=== PATIENT | male | born 1960 | race Caucasian/White ===

== ENCOUNTER 2024-04-02 18:47 | Inpatient (IN) | payer BC, SELFPAY ==
[2024-04-02] VITALS (25 sets, daily range): BP systolic 75–150; BP diastolic 60–92; PULSE 90–106; BMI 24.1
--- NOTE | 2024-04-02 11:54 | ED.GENMED ---
History of Present Illness
General
Chief Complaint: Weakness
Source: patient and spouse
Exam Limitations: none
Time Seen by Provider: 04/02/24 11:28
Travel History
Have you had any contact with someone who has COVID-19?: No
Do you have any symptoms of coronavirus? Fever > 100 degrees, chills, cough, shortness of breath, sore throat, loss of taste or smell, muscle aches, or headache?: No
History of Present Illness
History of Present Illness:
64-year-old male general fatigue weakness frequent falls dizziness lightheadedness progressive over weeks. Also significant weight loss over the last year. Per the has some pain with eating although patient denies this. Complaining of
constipation
Past History
Past History
ED Past Medical History: Hypercholesterolemia, Psychiatric and Other (Sarcoidosis)
ED Past Surgical History: Orthopedic
Social History
Tobacco: Former smoker
Alcohol: Occasional
Personal:
Living: with family
Review of Systems
Review of Systems
All Other Systems: Not applicable
Constitutional: Reports weight loss; Denies fever
Respiratory: Reports no symptoms
Cardiac: Reports no symptoms
ABD/GI: Reports constipated; Denies abdominal pain, bloody stools or black stools
Phy Exam
Physical Exam
Physical Exam:
GENERAL: Alert and oriented in no apparent distress
EYE: Orbits normal.
NECK: Supple, no thyroid palpable
ENT: Pharynx without erythema
CARDIAC: Mildly tachycardic and regular no murmur.
LUNGS: Clear breath sounds,normal
ABDOMEN: Soft, without focal tenderness or distention. Stool brown but test positive
NEUROLOGICAL: Alert and oriented , grossly non-focal. Speech normal. Gait normal. No unsteady gait
SKIN: Warm and dry, no rash or lesion, no discoloration, skin intact.
MUSCULOSKELETAL: No edema,no deformity.Good color
PSYCH: Slightly flat affect.
Course
Orders/Labs/Results
Orders:
Orders
04/02/24 10:26
Electrocardiogram (*1) Urgent
Reason for Study: Chest Pain
04/02/24 11:44
IV Insert/Care/Rem.- Treatment PRN
04/02/24 11:45
CT Head W/o Iv Contrast Urgent
Comment:
Reason For Exam: Frequent falls/weakness
04/02/24 11:49
Complete Blood Count/With Diff Urgent
Comprehensive Metabolic Panel Urgent
Magnesium Urgent
TSH Reflex To Free T4 Urgent
Troponin I Urgent
04/02/24 12:45
* Blood Bank Products Urgent
Blood Bank Products: *Packed RBC Leuko(PRBC's)
Quantity: 2
Transfuse Today: Yes
Reason: Bleeding
04/02/24 12:47
Pantoprazole [Protonix IV] 80 mg IV NOW STA
04/02/24 12:49
Type+Screen Urgent
04/02/24 Dinner
NPO
Allow oral meds: Yes
Allow clear liquids: No
04/02/24 17:49
Bladder Scan As Directed
Follow Bladder Retention/Intermittent Cath Algorithm?: Yes
PRN if no void in __ hours: 6
Frequency: Per Retention Algorithm
If Bladder Scan Result >: 400
then:: Straight cath
Abdominal Series [CR Obstruct Series W/pa Chest] Urgent
Comment:
Reason For Exam: h/o constipation
Renal & Bladder US [US Renal With Bladder] Urgent
Comment:
Reason For Exam: urinary retention
04/02/24 17:54
Admit/Transfer Patient As Directed
Co-Sign Provider:
Level of Care: Inpatient admission
Assign to:: IMU- Intermediate Care
Physician / Group: Dr. Munir Malave.
Transfer to: IMU- Intermediate Care
Diagnosis: Acute on Chronic blood loss
Patient Condition: Fair
Reason for Hospitalization: Acute on Chronic blood loss
Expected length of stay greater than two midnights?: Yes
ELOS- Estimated Length of Stay in days: 3
I certify the patient meets the requirements for IP care: Yes
04/02/24 18:10
Code Status As Directed
Resuscitation Status: Full Code
04/02/24 18:29
Orthostatic Vital Signs As Directed
Orthostatic VS Frequency: Now
Comment: then every four hours for twenty-four hours
04/02/24 18:30
GASTROINTESTINAL CONSULT Routine
Consulting Provider: Kenyatta Torres
Was physician already notified: Yes
Blood Culture Q30M
MARITZA Source: Blood/Venous
Specimen Description:
04/02/24 19:45
Blood Culture Urgent
MARITZA Source: Blood/Venous
Specimen Description:
04/02/24 19:55
Blood Culture Q30M
MARITZA Source: Blood/Venous
Specimen Description:
04/02/24 20:03
0.9% Sodium Chloride 1000 ml [Nss] 1,000 ml IV 125 mls/hr
Bisacodyl [Dulcolax] 10 mg RECTAL [id number] PRN
Docusate W/Senna [Senokot-S] 1 tablet PO BIDPRN PRN
Polyethylene Glycol Powder [Miralax] 17 grams PO DAILYPRN PRN
04/02/24 20:03
Intake/ Output As Directed
Frequency: Per unit guidelines
Notify MD As Directed
Notify physician if: hemodynamically unstable
Pneumatic Compression Sleeves As Directed
Type: Knee high
Vital Signs As Directed
Frequency: Per unit guidelines
Weight As Directed
Frequency: Daily
DX Deep Vein Thrombosis Video Routine
04/02/24 22:00
Olanzapine [Zyprexa] 15 mg PO HS
Zolpidem Tartrate [Ambien] 10 mg PO HS
04/02/24 22:07
Urinalysis Reflex To Culture Urgent
Date Specimen was Collected: 04/02/24
Time Specimen was Collected: 21:58
04/03/24 05:07
Basic Metabolic Panel IN AM
Complete Blood Count/No Diff IN AM
Magnesium IN AM
04/03/24 08:00
Pantoprazole [Protonix IV] 40 mg IV DAILY
04/04/24 06:00
Basic Metabolic Panel IN AM
Complete Blood Count/No Diff IN AM
04/05/24 06:00
Basic Metabolic Panel IN AM
Complete Blood Count/No Diff IN AM
Abnormal Lab Results
04/02/24 04/02/24
11:49 12:49
WBC 14.8 H 10^3/uL
(4.8-10.8)
RBC 3.08 L 10^6/uL
(4.70-6.10)
Hgb 5.7 L* g/dL
(13.0-18.0)
Hct 20.1 L* %
(39.0-52.0)
MCV 65.3 L fL
(80.0-94.0)
MCH 18.5 L pg
(27.0-31.0)
MCHC 28.4 L g/dL
(33.0-37.0)
RDW 16.1 H %
(11.5-14.5)
Plt Count 776 H 10^3/uL
(130-400)
Abs Immat Gran (auto) 0.1 H 10^3/uL
(0-0.05)
Absolute Neuts (auto) 12.5 H 10^3/uL
(1.4-6.5)
Absolute Lymphs (auto) 0.9 L 10^3/uL
(1.2-3.4)
Absolute Monos (auto) 1.2 H 10^3/uL
(0.1-0.6)
Neutrophils % 84.6 H %
(42.2-75.2)
Lymphocytes % 6.3 L %
(20.5-51.1)
Chloride 93 L mmol/L
(98-107)
Carbon Dioxide 36 H mmol/L
(22-30)
BUN 38 H mg/dl
(9-20)
Creatinine 2.4 H mg/dL
(0.7-1.3)
Glucose 129 H mg/dl
(70-99)
Calcium 10.5 H mg/dl
(8.4-10.2)
Magnesium 3.2 H mg/dl
(1.6-2.3)
AST 16 L U/L
(17-59)
Crossmatch IS Only See Detail
04/02/24 11:49
04/02/24 11:49
Vital Signs
Initial and Last Documented VS:
Initial Vital Signs
Temp Pulse Resp BP Pulse Ox
97.8 F 115 20 97/68 98
04/02/24 10:22 04/02/24 10:22 04/02/24 10:22 04/02/24 10:22 04/02/24 10:22
Last Documented Vital Signs
Temp Pulse Resp BP Pulse Ox
98.4 F 99 18 128/55 90
04/03/24 11:14 04/03/24 12:00 04/03/24 12:00 04/03/24 12:00 04/03/24 10:00
*Radiology
Radiology exam reviewed: radiology read reviewed (No acute abnormalities)
*Pulse Oximetry
Patient hypoxic: no
*EKG
Interpretation: abnormal
Comparison EKG: no comparison EKG present
Heart Rate: 114
Rate: tachycardiac
Rhythm: sinus
Mobile: normal axis
Interval: normal interval
QRS Pattern: normal QRS
Ischemia: no ischemia
*Critical Care Note
Total Time (30-74mins, 75-104mins- exclusive of procedures): 15
Update Note
Update Note:
Stool test positive. Brown. Protonix ordered. Blood consent signed.
ED Attending Note
-
Portions of this chart may have been created with voice recognition software.� Occasional wrong word or��sound alike� substitutions may have occurred due to the inherent limitations of voice recognition software.
Discharge Plan
Departure
Patient Disposition: Admit
Date of Disposition: 04/02/24
Time of Disposition: 12:48
Presentation/result/management discussed w/ accepting MD/DO: Hospitalist
Discharge Problem:
Occult upper GI bleed, Severe anemia, Acute renal insufficiency
Interventions
Interventions:
*Risk Screen - Suicide Last Done: 04/02/24 10:22
*General Assessment Last Done: 04/02/24 10:22
*Neglect/Abuse Screening Last Done: 04/02/24 10:22
ED- Fall Risk Assessment Last Done: 04/02/24 20:20
*ED COVID-19 Vaccine History Last Done: 04/02/24 20:20
*Nursing Disposition Last Done: 04/02/24 20:20
ED- Cardiac Assessment Last Done: 04/02/24 15:35
ED- Neurological Assessment Last Done: 04/02/24 15:36
ED- Pulmonary Assessment Last Done: 04/02/24 15:36
Discharge Date and Time
Discharge Date/Time: 04/02/24 20:21
[2024-04-02 12:10] LABS: % Basophils 0.2 % (0-2); % Eosinophils 0.1 % (0-6); % Immature Granulocytes 0.5 % (0-0.5); % Lymphocytes 6.3 % (20.5-51.1); % Monocytes 8.3 % (1.7-9.3); % Neutrophils 84.6 % (42.2-75.2); Absolute Immature Granulocytes 0.1 10^3/uL (0-0.05); Absolute Lymphocytes 0.9 10^3/uL (1.2-3.4); Absolute Monocytes 1.2 10^3/uL (0.1-0.6); Absolute Neutrophils 12.5 10^3/uL (1.4-6.5); Mean Corp Hgb Conc. 28.4 g/dL (33.0-37.0); Mean Corpuscular Hgb 18.5 pg (27.0-31.0); Mean Corpuscular Volume 65.3 fL (80.0-94.0); Mean Platelet Volume 8.3 fL (7.4-10.4); Nucleated Red Blood Cells % 0 % (-); Platelet Count 776 10^3/uL (130-400); Red Blood Cell Count 3.08 10^6/uL (4.70-6.10); Red Cell Dist. Width 16.1 % (11.5-14.5); White Blood Cell Count 14.8 10^3/uL (4.8-10.8)
[2024-04-02 12:14] LABS: Hematocrit 20.1 % (39.0-52.0); Hemoglobin 5.7 g/dL (13.0-18.0)
[2024-04-02 12:18] LABS: ALT (SGPT) 11 U/L (0-50); AST (SGOT) 16 U/L (17-59); Albumin 3.6 g/dl (3.5-5.0); Alkaline Phosphatase 89 U/L (38-126); Blood Urea Nitrogen 38 mg/dl (9-20); Calcium 10.5 mg/dl (8.4-10.2); Carbon Dioxide 36 mmol/L (22-30); Chloride 93 mmol/L (98-107); Glucose 129 mg/dl (70-99); Magnesium 3.2 mg/dl (1.6-2.3); Potassium 3.9 mmol/L (3.5-5.1); Sodium 136 mmol/L (135-145); Total Bilirubin 0.3 mg/dl (0.2-1.3); Total Protein 6.4 g/dl (6.3-8.2); eGFR 29.39
[2024-04-02 12:31] LABS: Troponin I < 0.012 ng/ml
[2024-04-02 12:48] LABS: TSH Reflex To Free T4 1.58 uIU/ml (0.47-4.68)
[2024-04-02] MEDS: PROTONIX IV 80 MG IV (13:26)
--- NOTE | 2024-04-02 18:34 | HPS.HSE ---
Addendum entered and electronically signed by Munir Malave MD 04/02/24 21:18:
Attending Addendum-
I performed a history and physical exam of the patient and discussed his management with the resident. I reviewed the resident's note and agree with the documented findings and plan of care. Patient presents with one weeks worth of fatigue and
intermittent dizziness on standing. States has been taking naproxen frequently especially for CP. Patient describes the CP as substernal worse when laying down better with burping. States stools were a 'different color' one week ago. Denies
hematochezia or melena. Has been constipated x 1 week. Has not urinated since last PM. Full 12 point ROS reviewed and negative except as documented Exam- vitals reviewed in chart GEN-NAD pale appearing heart regular tachycardic lungs dry crackles
throughout abd distended pos BS NT no rebound or guarding distended bladder Plan:
# Acute Anemia/GI Bleed-
- orthostatic and tachycardiac
- c/s GI
- likely upper GI NSAID/ulcer related
- NPO s/p bolus 80mg PPI cont IV PPI BID
- transfuse 2 units prbc and repeat h and h 2 hours post
- will need EGD and possibly colonoscopy
- G-B score 13
- check iron studies
# Severe Constipation
- check obs series
- start IVF
- enema stat x 1
- NPO
# CANELO
- post renal
- renal US with distended bladder no hydro
- place thakur to decompress
- repeat BMP in am
- cont IVF
# Leukocytosis
- check lactate
- blood cx and urine cx
- cont to monitor
- repeat CBC in am
# Hypomagnesemia
- hold MOM
- repeat Mg in am
# Insomnia
- chronic Ambien use
- continue
# Peripheral Neuropathy
- hold gabapentin
# Bipolar
- cont zyprexa
# Sarcoidosis
- f/u as OP
- stable
DVT proph- SCDs
Code- Full
Time spent coordinating care, review of plan of care with resident, review of records, med rec, consults, notes, labs, rads, d/w nursing - 80 mins
Original Note:
Family Physician
-
Family Physician: Brayan Gordon
Chief Complaint
-
dizziness and generalised weakness
History of Present Illness
64 yo ,male presented to the ER reporting dizziness, lightheadedness, and frequent falls since 5 to 6 months, worsened over the past couple of weeks. Patient also mentioned about recent weight loss in the last year. He has a history of
constipation, his last bowel movement was 10 days ago [dark stools] after using milk of magnesia. He has a history of burping, dyspepsia, epigastric and abdominal pain after eating, nonradiating and he uses Tums/naproxen as needed. He has a past
medical history of sarcoidosis and bipolar disorder. No history of nausea, vomiting, hematemesis, hematuria, fevers, recent travel, diarrhea. Patient mentioned he did not pass urine since yesterday night, no suprapubic discomfort/pain. FOBT is
positive in the ER. No history of colonoscopy.
Medical History
Past Medical History
Past Medical History: Reports Other (Sarcoidosis, bipolar disorder)
Additional Past Medical History:
Sarcoidosis, bipolar disorder
Past Surgical History: Reports Other (Orthopedic)
Additional Past Surgical History:
Orthopedic
Social History
Tobacco: Former Smoker (Quit 40 years ago)
Alcohol: Occasional (heavy beer drinker until 6 months ago)
Drug: None
Personal:
Living: With Family
Family History
Family History: CAD (Brother)
Allergies / Home Medications
Allergies reflects when Allergies were last updated in [facility].
Home Medications with original date entered in [facility]
Allergy/Medication List:
Allergies
Allergy/AdvReac Type Severity Reaction Status Date / Time
No Known Allergies Allergy Verified 04/02/24 10:26
Home Medications
calcium carbonate (Tums) 200 mg PO QIDPRN PRN gerd 04/02/24
gabapentin 300 mg capsule 300 mg PO HS 04/02/24
magnesium hydroxide 400 mg/5 mL oral suspension (Milk of Magnesia) 2,400 mg PO DAILYPRN PRN constipation/gerd 04/02/24
naproxen sodium 220 mg tablet (Aleve) 220 mg PO BIDPRN PRN mild pain 04/02/24
olanzapine 15 mg tablet 15 mg PO HS 04/02/24
zolpidem 10 mg tablet (Ambien) 10 mg PO HS 04/02/24
Review of Systems
-
History Source: Patient
Constitutional: Reports Weight Loss and Other (As per HPI)
Physical Exam
Vital Signs
Vital Signs
Temp Pulse Resp BP Pulse Ox
98.1 F 96 16 131/77 98
04/02/24 16:48 04/02/24 16:48 04/02/24 16:48 04/02/24 16:48 04/02/24 16:32
Physical Exam
HEENT: NormoCephalic and Other (Conjunctival pallor)
Respiratory: Wheezes (Mild bilateral wheezing)
Cardiac: S1/S2 and Other (Tachycardic)
GI: Non Tender and Distended; No Soft
Genito-urinary: Other (No suprapubic tenderness)
Musculoskeletal: No Edema and Normal Gait & Station
Skin: Warm and Dry
Neuro: Awake, Alert, Oriented, Cranial Nerves Intact and No Sensory Deficits
Psych: Calm
Laboratory Results
-
04/02/24 11:49
04/02/24 11:49
Laboratory Results
Total Bilirubin 0.3 mg/dl (0.2-1.3) 04/02/24 11:49
AST 16 U/L (17-59) L 04/02/24 11:49
ALT 11 U/L (0-50) 04/02/24 11:49
Alkaline Phosphatase 89 U/L (38-126) 04/02/24 11:49
Troponin I < 0.012 ng/ml 04/02/24 11:49
Impression/Plan
-
IMPRESSION:
GI blood loss
CANELO
Leukocytosis
Orthostatic hypotension
Hypermagnesemia
Constipation
PLAN:
#GI blood loss
acute versus chronic, etiology possibly secondary to peptic ulcer disease versus malignancy versus chronic NSAID use.
h/o wt loss
Hemoglobin 5.7, hematocrit 20.1 on admission
Transfused 2 PRBC , H&H 2 hours after second transfusion.
Monitor vital signs, orthostatic vitals
IV fluids
N.p.o.
GI consult-possibly EGD, colonoscopy after GI evaluation
Protonix IV 40 mg twice daily
Discontinue naproxen
#CANELO
Possibly prerenal
IV fluids
No urine output since yesterday night
Bladder scan with straight cath per protocol
Renal ultrasonogram
Urinalysis
Trend I&O's
Discontinue naproxen
#Leukocytosis
WBC at 14.8
Tachycardia
Urinalysis with reflex to culture
Blood culture
Chest x-ray
#Orthostatic hypotension
BP: 104/72 ---> 75/60 upon standing for 3 min.
IV fluid bolus normal saline
#Hypermagnesemia
3.2
Chronic use of milk of magnesia for constipation
Discontinue milk of magnesia
Trend magnesium
#Constipation
Abdominal series
[2024-04-02 19:55] LABS: Hematocrit 22.7 % (39.0-52.0)
[2024-04-02 20:00] LABS: Hemoglobin 7.4 g/dL (13.0-18.0)
[2024-04-02] MEDS: ZYPREXA 15 MG PO (20:37)
[2024-04-02] MEDS: NSS 1000 IV (20:37)
[2024-04-02] MEDS: AMBIEN 10 MG PO (20:37)
[2024-04-02] MEDS: FLEET MINERAL OIL ENEMA 133 ML RECTAL (21:43)
[2024-04-02 22:20] LABS: Urine Albumin Trace (Neg - Trace); Urine Bilirubin 1+ (Negative); Urine Character Clear (Clear); Urine Color Yellow; Urine Glucose Negative (Negative); Urine Ketone Negative (Negative); Urine Leukocyte Negative (Negative); Urine Nitrite Negative (Negative); Urine Occult Blood Negative (Negative); Urine Specific Gravity 1.015 (<1.030); Urine Urobilinogen Negative (Neg - 1+); Urine pH 6.5 (5.0-9.0)
--- NOTE | 2024-04-02 22:29 | PTCARENOTE ---
pt admitted from the ED- pt is AAOx3- able to make needs known. NSR/ST on the monitor. ST more with ambulation to 120s but back down to 80s with rest. 95% RA, chronic SOB. belly round, very hypoactive bowel sounds. pt with positive orthostatic
vitals but denies any dizziness. pt was bladder scanned in the ED for >400ml. pt stood at side of bed to try to urinate without success. thakur ordered and placed without issues. 600ml of initial output, yellow urine. urine specimen collected and
sent down. pt also ordered a mineral oil enema, pt sat on BSC and was able to have small hard black BM. no complaints of pain. IV fluids hung and infusing into R AC. knee high SCD's on. pt oriented to room, call acuna within reach, care ongoing.
[2024-04-03] VITALS (21 sets, daily range): BP systolic 90–158; BP diastolic 55–92; PULSE 96–114; BMI 24.1
[2024-04-03] MEDS: NSS 1000 IV ×2 (04:01→16:11)
[2024-04-03 05:22] LABS: Hematocrit 22.2 % (39.0-52.0); Mean Corp Hgb Conc. 31.5 g/dL (33.0-37.0); Mean Corpuscular Hgb 21.1 pg (27.0-31.0); Mean Corpuscular Volume 66.9 fL (80.0-94.0); Mean Platelet Volume 8.1 fL (7.4-10.4); Platelet Count 681 10^3/uL (130-400); Red Blood Cell Count 3.32 10^6/uL (4.70-6.10); White Blood Cell Count 12.7 10^3/uL (4.8-10.8)
[2024-04-03 05:45] LABS: Blood Urea Nitrogen 41 mg/dl (9-20); Calcium 9.4 mg/dl (8.4-10.2); Carbon Dioxide 30 mmol/L (22-30); Chloride 98 mmol/L (98-107); Estimated Creatinine Clearance 37 ml/min; Glucose 106 mg/dl (70-99); Magnesium 3.4 mg/dl (1.6-2.3); Potassium 3.7 mmol/L (3.5-5.1); Sodium 135 mmol/L (135-145); eGFR 41.51
--- NOTE | 2024-04-03 06:09 | PTCARENOTE ---
pt oxygen dropping while sleeping to 80s- 2L NC placed while asleep, now 100%.
--- NOTE | 2024-04-03 06:10 | W.PN.HOSP.TC ---
Addendum entered and electronically signed by Munir Malave MD 04/03/24 20:53:
Attending Addendum-I saw and evaluated the patient. I reviewed the resident�s note and agree with findings and plan as documented in the resident�s note. Patient had small BM afer enema last PM. Feels 'full' Patient has poor understanding on
severity of condition. Passing gas. Denied abd pain. Full 12 point ROS reviewed and negative except as documented Exam- vitals reviewed in chart GEN-NAD pale appearing heart regular tachycardic lungs dry crackles throughout abd distended decreased
BS in all 4 quads NT no rebound or guarding distended bladder, palpable Plan:
# Acute on Chronic Blood Loss Anemia/GI Bleed-
- still orthostatic and tachycardiac
- GI input appreciated
- check CT A/P for eval
- likely combination of upper GI NSAID/ulcer related and Lower- obstructive ? mass
- per patient unsure if has had a colonoscopy
- cont NPO s/p bolus 80mg PPI cont IV PPI BID
- transfused 2 units prbc
- check iron studies on non txed blood
# Sinus tachycardia
- increase IVF rate bolus as able
- likely from dehydration/hypovolemia
# Severe Constipation with likely LBO
- reviewed obs series- Distended small bowel loops with multiple air-fluid levels is most consistent with at least partial or intermittent small bowel obstruction.
Correlation with the renal ultrasound performed concurrently reveals the patient is unable to void, with a prevoid volume of 4232 mL.
- cont IVF
- NPO
- may need NG tube
- c/s colorectal surg for eval
# CANELO
- resolving
- post renal
- renal US reviewed-with distended bladder no hydro
- cont Neville for decompress
- repeat BMP in am
- cont IVF
# Leukocytosis
- resolving
- check lactate
- blood cx and urine cx
- cont to monitor
- repeat CBC in am
# Hypermagnesemia
- likely from MOM use and renal failure
- repeat Mg in am
# Insomnia
- chronic Ambien use
- continue
# Peripheral Neuropathy
- hold gabapentin
# Bipolar
- cont zyprexa
# Sarcoidosis
- f/u as OP
- stable
DVT proph- SCDs
Code- Full
Time spent coordinating care, review of plan of care with resident, review of records, med rec, consults, notes, labs, rads, d/w nursing and radiology- 60 mins
Original Note:
Today's Communication/Plan
-
.
Assessment / Plan
Assessment / Plan
#GI blood loss/ anemia/chronic constipation
acute versus chronic, etiology possibly secondary to peptic ulcer disease versus malignancy versus chronic NSAID use.
h/o wt loss
Hemoglobin 5.7, hematocrit 20.1 on admission
GB score�13
Transfused 2 PRBC , H&H 2 hours after second transfusion.
Monitor vital signs, orthostatic vitals
Protonix IV 40 mg twice daily
Discontinue naproxen
IV fluids
N.p.o.
Patient had bowel movement, after enema
GI consulted
CT scan with oral contrast- There is colonic obstruction at the level of the superior aspect of the descending colon. In this region, there is a mass with associated colonic wall thickening, and this very likely represents an obstructing colonic
carcinoma. This mass extends to the tail of the pancreas and the adjacent left kidney, and findings suggest invasion of these structures. As a differential consideration, the mass could originate from the pancreatic tail or the left kidney, but this
is felt to be less likely.
Significant distention of the colon with air and fluid extending to the level of obstruction. There is also significant distention of small bowel loops with air, fluid, and contrast, with administered oral contrast extending to the mid small bowel.
No evidence of free intraperitoneal air. No evidence for pneumatosis.
There is a small to moderate amount of free fluid within the abdomen and pelvis.
2 mm calcification the central lower pole of the left kidney, likely a nephrolith.
Colorectal surgery consulted
NG tube decompression, post NGT abd X-ray for position
GI evaluation- Dr. Enamorado- possibly colonoscopy with stent placement/biopsy under general anesthesia tomorrow.
#CANELO/urinary retention
Possibly postrenal
IV fluids
[place] in place
Renal ultrasonogram-Extremely distended urinary bladder, 4232 ml. Patient unable to void. Only the left ureteral jet was visualized.
Kidneys of normal size. No hydronephrosis. Simple cyst in the left kidney.
Urinalysis
Trend I&O's
Discontinue naproxen
Start tamsulosin
#Leukocytosis
Lactate 1.1
Blood culture and urine culture pending
Repeat CBC a.m.
#Hypermagnesemia
3.4
Trend
#History of bipolar disorder
Continue olanzapine
#Continue Ambien for insomnia
#DVT prophylaxis SCDs
Anticipated Discharge: > 48 hours
Subjective/Interval History
-
Date of Service: April 03, 2024
Patient had one small bowel movement, dark stools yesterday night after enema. No nausea, vomiting, abdominal pain.
Objective Data
-
Labs:
Laboratory Results
04/02/24 04/03/24
19:45 05:07
WBC 12.7 H
Hgb 7.4 L D 7.0 L
Hct 22.7 L 22.2 L
Plt Count 681 H
Sodium 135
Potassium 3.7
Chloride 98
Carbon Dioxide 30
BUN 41 H
Creatinine 1.8 H
Glucose 106 H
Calcium 9.4
Vital Signs:
Vital Signs
Temp Pulse Resp BP Pulse Ox
98.0 F 95 19 137/77 98
04/03/24 03:20 04/03/24 06:00 04/03/24 06:00 04/03/24 06:00 04/03/24 06:00
I&O
04/01/24 04/02/24 04/03/24
06:59 06:59 06:59
Intake Total 500 / 500
Output Total 600 / 600
Balance -100 / -100
Review of Systems
-
All other systems: Reviewed and negative (As per HPI)
Physical Exam
-
General: No Apparent Distress
HEENT: Normocephalic and Atraumatic
Respiratory: Clear to Auscultation
Cardiac: S1/S2
GI: Nontender, Distended and Other (BS +, tympanitic)
Skin: Warm and Dry
Neuro: Awake, Alert, Oriented and AO x 3
--- NOTE | 2024-04-03 07:46 | PTCARENOTE ---
Rec'd pt this AM. no stool. BS only present in one quadrant. positive orthostatic vs but asymptomatic. denies abdominal pain. Updated [facility] MD Dr. Wan.
[2024-04-03] MEDS: NSS (PRESERVATIVE FREE) 10 ML IV ×2 (07:55→20:03)
[2024-04-03] MEDS: PROTONIX IV 40 MG IV ×2 (07:56→20:03)
--- NOTE | 2024-04-03 09:29 | CON.GI ---
Addendum entered and electronically signed by Venus Verduzco MD 04/03/24 12:14:
I saw and examined the patient.
The LABORATORY SECRETARY or PA's note was reviewed and I agree with the note.
Comment: 64-year-old male with history of sarcoidosis, hypertension, high cholesterol presenting with weakness, lethargy, fall and a 50 pound weight loss in the last 1 year. Patient is not a great historian, at bedside as well. In the
emergency room on presentation, hemoglobin of 5.7 with microcytic indices, thrombocytosis. Received 2 units of packed red blood cell Hospital transfusion. No previous labs to compare to. He does report intermittent abdominal discomfort but not
very clear on the details. Denies any nausea, vomiting. Intermittent heartburn, takes antacid couple of times a week and milk of magnesia once a week, no trouble swallowing. Also reports constipation in the more than a month, ast has been having
bowel movements once a week only if he takes milk of magnesia, would be some formed stool with loose stool, he also sees some black stool. No bright blood. Prior to that he reports having regular bowel movements daily. No regular NSAID use.
Unintentional weight loss of 50 pounds in 1 year. Previous history of alcohol abuse, reports that he has not been drinking in the last 6 months. Never had upper endoscopy or colonoscopy. No known history of anemia or GI bleeding. No family
history of colon cancers or polyps that he is aware of. Prior to admission, no urination for 24 hours.
He had obstruction series that showed distended small bowel loops with multiple air-fluid level consistent with at least partial or intermittent small bowel obstruction.
-Significant microcytic anemia with GI bleeding, hemodynamically stable.
Iron studies not accurate given done on transfuse blood. Will check celiac panel.
Rule out ulcer disease, AVMs, small bowel lesion versus colonic neoplasia/polyps.
Ideally patient would need upper endoscopy/colonoscopy but given distended small bowel loops with air-fluid level, will start with CT scan of the abdomen and pelvis with oral contrast only, no IV contrast given elevated creatinine.
Will follow-up on the above testing and plan for upper endoscopy and colonoscopy after.
Continue Protonix 40 mg IV twice daily.
Will follow closely.
Original Note:
Consultation
-
Date/Time Consultation Requested: 04/02/24- 1829
Date/Time Consultation Performed: 04/03/24929
Requesting Provider: Angeline Wan MD
Performing Provider: JOHANN Sánchez, Venus Verduzco MD
Reason for Consultation: anemia
Medical History
Chief Complaint / HPI
Chief Complaint: weakness
History of Present Illness:
Pt is a 64yo with hx HTN, hypercholesterolemia, sarcoidosis, insomnia with onset of fatigue, falls, dizziness and lightheadedness over a few weeks. Per patient he also admits to recent intentional wt loss of 50 lbs over last 6 months. On
admission hbg 5.7 with MCV 65.3, WBC 14.8, Platelets 681, creat 2.4, 10.5, mag 3.2. Imaging with chronic microvascular ischemic change on head CT and obstruction series with chronic lung changes no free air but distended SB loops with concern for
partial or intermittent Small bowel obstruction. Renal US with concern for severe urinary bladder distention with placement of thakur for 600ml output. Pt also with some complaints of constipation with enema given on admission for only small stool.
At this time patient admits to constipation and dark stools after milk of magnesia use. He has occasional GERD with OTC antiacid use He denies dysphagia, odynophagia, nausea, vomiting, diarrhea, or blood in stools. No prior EGD or
colonoscopy.
Past Medical History
Past Medical History: HTN, Hypercholesterolemia and Other (sarcoidosis)
Past Surgical History: Orthopedic (ankle surgery in 20's)
Social History
Tobacco: Former Smoker (quit 40 years ago)
Alcohol: Former (quit 6 months ago with hx 4-5 beers daily)
Drug: None
Personal:
Living: With Family
Employment: Retired
Family History
Family History: Other (no family hx colon CA or polyps)
Allergies / Home Medications
Allergy/AdvReac Type Severity Reaction Status Date / Time
No Known Allergies Allergy Verified 04/02/24 10:26
�Medication �Instructions �Recorded
calcium carbonate (Tums) 200 mg PO QIDPRN PRN gerd 04/02/24
gabapentin 300 mg capsule 300 mg PO HS 04/02/24
magnesium hydroxide 400 mg/5 mL 2,400 mg PO DAILYPRN PRN 04/02/24
oral suspension (Milk of Magnesia) constipation/gerd
naproxen sodium 220 mg tablet 220 mg PO BIDPRN PRN mild pain 04/02/24
(Aleve)
olanzapine 15 mg tablet 15 mg PO HS Mental Health/Anxiety 04/02/24
zolpidem 10 mg tablet (Ambien) 10 mg PO HS Sleep 04/02/24
Review of Systems
-
Unable to obtain full review of systems at this time due to: Other (forgetfulness)
History Source: Patient
Constitutional: Reports Weight Loss, Fatigue and Other (falls)
EENT: Reports No Symptoms
Respiratory: Reports No Symptoms
Abdomen/GI: Reports Constipated and Black Stools
: Reports Difficulty Voiding (with thakur placement in ER)
Musculoskeletal: Reports No Symptoms
Skin: Reports No Symptoms
Neurological: Reports Weakness
Endocrine: Reports No Symptoms
Hematologic/Lymphatic: Reports No Symptoms
Vital Signs
Temp Pulse Resp BP Pulse Ox
98.2 F 95 19 137/77 98
04/03/24 07:49 04/03/24 06:00 04/03/24 06:00 04/03/24 06:00 04/03/24 08:02
Physical Exam
Exam
General: Other (thin appearing )
HEENT: Normocephalic and Anicteric
Respiratory: Clear
Cardiac: Other (tachy)
GI: Soft, Non Tender and Distended
Musculoskeletal: No Clubbing and No Cyanosis
Skin: Warm and Dry
Neuro: Awake, Alert and AO x 3
Psych: Calm
Results
WBC 12.7 10^3/uL (4.8-10.8) H 04/03/24 05:07
Hgb 7.0 g/dL (13.0-18.0) L 04/03/24 05:07
Hct 22.2 % (39.0-52.0) L 04/03/24 05:07
MCV 66.9 fL (80.0-94.0) L 04/03/24 05:07
Plt Count 681 10^3/uL (130-400) H 04/03/24 05:07
Absolute Neuts (auto) 12.5 10^3/uL (1.4-6.5) H 04/02/24 11:49
Sodium 135 mmol/L (135-145) 04/03/24 05:07
Potassium 3.7 mmol/L (3.5-5.1) 04/03/24 05:07
Chloride 98 mmol/L (98-107) 04/03/24 05:07
Carbon Dioxide 30 mmol/L (22-30) 04/03/24 05:07
BUN 41 mg/dl (9-20) H 04/03/24 05:07
Creatinine 1.8 mg/dL (0.7-1.3) H 04/03/24 05:07
Calcium 9.4 mg/dl (8.4-10.2) 04/03/24 05:07
Total Bilirubin 0.3 mg/dl (0.2-1.3) 04/02/24 11:49
AST 16 U/L (17-59) L 04/02/24 11:49
ALT 11 U/L (0-50) 04/02/24 11:49
Alkaline Phosphatase 89 U/L (38-126) 04/02/24 11:49
Diagnostic Image Results:
04/02/24 Renal US
Extremely distended urinary bladder. Patient unable to void. Only the left ureteral jet was visualized.
Kidneys of normal size. No hydronephrosis. Simple cyst in the left kidney.
04/02/24 obstruction series
Chronic lung changes, consistent with the history of sarcoidosis. Poor inspiratory effort with low lung volumes. No definite superimposed acute airspace process.
No free air.
Distended small bowel loops with multiple air-fluid levels is most consistent with at least partial or intermittent small bowel obstruction.
Correlation with the renal ultrasound performed concurrently reveals the patient is unable to void, with a prevoid volume of 4232 mL.
04/02/24 HCT
No acute intracranial abnormality.
Mild to moderate chronic appearing microvascular ischemic disease
Prior GI Procedures:
EGD: none
Colonoscopy: none
Assessment / Plan
-
Pt is a 64yo with hx HTN, hypercholesterolemia, sarcoidosis, insomnia with onset of fatigue, falls, dizziness and lightheadedness over a few weeks. Per patient he also admits to recent intentional wt loss of 50 lbs over last 6 months. On
admission hbg 5.7 with MCV 65.3, WBC 14.8, Platelets 681, creat 2.4, 10.5, mag 3.2. Imaging with obstruction series with chronic lung changes no free air but distended SB loops with concern for partial or intermittent Small bowel obstruction.
Renal US with concern for severe urinary bladder distention with placement of thakur for 600ml output. Pt also with some complaints of constipation with enema given on admission for only small stool.
-severe microcytic anemia
-reports of intermittent black stools
-obstruction series with concern for partial or intermittent SBO
-constipation
-recent weight loss- intentional per patient
-bladder distention with placement of thakur catheter
-CANELO
-recent falls/weakness on admission
-thrombocytosis
-leukocytosis
other medical problems:
-HTN
-hypercholesterolemia
-sarcoidosis
-insomnia
PLAN:
etiology of anemia with black stools and concern for partial/intermittent SBO related to underlying obstructive process with SB/colon mass, stricture vs concern for UGI bleed with reports of black stool vs other
will review with Dr. Verduzco for CT -- today with oral contrast only vs in am with IV and oral if creat allow
t/c eventual EGD/colon for work up for anemia if obstructive process stable to allow prep
cont thakur for now with good urine output and creat improving
s/p transfusion hbg 7 today cont to trend hbg
cont PPI BID
iron studies done today not accurate as done post transfusion will try to repeat iron studies on blood done in ER prior to transfusion if able
currently NPO with concern for Small bowel process but denies vomiting
will follow
-
-
Thank you for consultation and allowing me to participate in the patient's care. Please call the mobile application development lead GI physician during the after hours with any questions or concerns.
[2024-04-03 09:30] LABS: Iron 157 ug/dl (49-181)
[2024-04-03 09:39] LABS: Percent Saturation 49 % (20-50); Total Iron Binding Capacity 316 ug/dl (261-462)
[2024-04-03 10:20] LABS: Lactic Acid 1.1 mmol/L (0.7-2.0)
[2024-04-03 10:47] LABS: Ferritin 10.8 ng/ml (17.9-464.0)
[2024-04-03] MEDS: OMNIPAQUE 50 ML PO (11:23)
--- NOTE | 2024-04-03 12:31 | PTCARENOTE ---
Pt tolerated Oral contrast in prep for Abdominal CT scan.
[2024-04-03] MEDS: FLOMAX 0.400000000000000022 MG PO (16:12)
--- NOTE | 2024-04-03 18:04 | PTCARENOTE ---
RN and Resident MD attempted to insert [place] sump NGT x2. Pt unable to tolerate procedure. refusing to allow additional attempts. Colorectal surgery currently at bedside to discuss possible surgical interventions and to review CT scan results with
pt and family.
--- NOTE | 2024-04-03 18:09 | CM ---
Patient with Hx bipolar disorder with Dx Acute Anemia/GI Bleed. O2 2L. NPO/IVF.
Met with patient and his brother Douglas;
patient resides with his in a 2 story house with 1 K[address].
The patient has been independent in ADLs and ambulation.
He states he is retired.
The patient has no DME, prior VN or SNF.
PCP - Brayan Gordon
Pharmacy - [facility]
No CM d/c needs identified.
Plan home.
[2024-04-03] MEDS: HURRICAINE SPRAY 1 APPLIC TOPICAL (18:52)
--- NOTE | 2024-04-03 19:32 | CON.CRS ---
Consultation
-
Performing Provider: Heber Bermudez MD
Reason for Consultation: Large bowel obstruction, possible colon cancer
Medical History
-
History of Present Illness:
Patient is a 64-year-old male with PMH of bipolar (previously on lithium for many years, stopped due to kidney injury which recovered), insomnia, sarcoidosis, HLD, GERD who presents with a couple weeks of weakness, dizziness and falls at home.
About 6 months ago, he stopped drinking beer and attempt to lose weight. He is lost over 50 pounds since then. For the last month or so, he started having worsening constipation, going on average about once every week and using magnesium citrate
to help. He also started getting bloating, but not sure when this started, maybe within the last 1 to 2 weeks. He denies any N/V. His last BM was this morning and it was small amount associated with small amount of gas, but none since then.
Denies any recent hematochezia. He also was not able to urinate and a Thakur was placed during his admission. He denies any abdominal pain, CP/SOB. He admits to being a little foggy with all of the information he is getting. He has never had a
colonoscopy.
In the ED, he was noted to have a hemoglobin of 5.7 with a WBC of 14.8 and Cr of 2.4. He was given 2 pRBCs. Initially, an x-ray was done showing possible bowel obstruction with air-fluid levels. A CT was then done showing a colonic obstruction at
the descending colon with a mass concerning for cancer. This mass appears to be invading the left kidney and tail of the pancreas. There is significant distention with the proximal colon and small bowel, cecum measuring between 9 to 10 cm.
Past Medical History
Past Medical History: Other (As above)
Past Surgical History: Other (Left ankle surgery in 20)
Social History
Tobacco: Former Smoker (Quit 40 years ago)
Alcohol: Former (Quit 6 months ago)
Drug: None
Personal:
Living: With Family
Employment: Retired
Family History
Family History: Other (Mother-breast cancer)
Allergies / Home Medications
Allergy/AdvReac Type Severity Reaction Status Date / Time
No Known Allergies Allergy Verified 04/02/24 10:26
�Medication �Instructions �Recorded �Confirmed �Type
calcium carbonate (Tums) 200 mg PO QIDPRN PRN gerd 04/02/24 04/02/24 History
gabapentin 300 mg capsule 300 mg PO HS 04/02/24 04/02/24 History
magnesium hydroxide 400 mg/5 mL 2,400 mg PO DAILYPRN PRN 04/02/24 04/02/24 History
oral suspension (Milk of Magnesia) constipation/gerd
naproxen sodium 220 mg tablet 220 mg PO BIDPRN PRN mild pain 04/02/24 04/02/24 History
(Aleve)
olanzapine 15 mg tablet 15 mg PO HS Mental Health/Anxiety 04/02/24 04/02/24 History
zolpidem 10 mg tablet (Ambien) 10 mg PO HS Sleep 04/02/24 04/02/24 History
Review of Systems
-
All other systems: Negative unless noted
A 10 point review of systems was completed, and was negative except as per HPI.
Physical Exam
Vital Signs
Temp 98.4 F 04/03/24 11:14
Pulse 107 04/03/24 18:00
Resp Rate 24 04/03/24 18:00
Blood pressure 142/89 04/03/24 18:00
SaO2 90 04/03/24 10:00
04/02/24 04/03/24 04/04/24
06:59 06:59 06:59
Actual Weight 67.6 kg
Body Mass Index (BMI) 24.1
Lab Results / Allergies
04/03/24 05:07
04/03/24 05:07
WBC 12.7 10^3/uL (4.8-10.8) H 04/03/24 05:07
Hgb 7.0 g/dL (13.0-18.0) L 04/03/24 05:07
Hct 22.2 % (39.0-52.0) L 04/03/24 05:07
Plt Count 681 10^3/uL (130-400) H 04/03/24 05:07
Abs Immat Gran (auto) 0.1 10^3/uL (0-0.05) H 04/02/24 11:49
Neutrophils % 84.6 % (42.2-75.2) H 04/02/24 11:49
Allergy/AdvReac Type Severity Reaction Status Date / Time
No Known Allergies Allergy Verified 04/02/24 10:26
Physical Exam
General: Well Developed and No Apparent Distress
HEENT: Normocephalic and Atraumatic
Respiratory: Non Labored Respirations
GI: Soft, Non Tender (No rebound or guarding) and Distended (Moderately to severely distended)
Skin: Warm and Dry
Neuro: Awake, Alert, AO x 3 and Other (Having trouble with short-term recall)
Data Reviewed
-
CT Scan: Image Personally Visualized and interpreted, Discussed with Physician, Discussed with Patient and Discussed with Family
Labs: Labs Reviewed by me, Discussed with Patient and Discussed with Family
Assessment / Plan
-
64-year-old male with PMH of bipolar (previously on lithium for many years, stopped due to kidney injury), insomnia, sarcoidosis, HLD, GERD who presents with a couple weeks of weakness, dizziness and falls at home for a couple of weeks associated
with intentional 50 pound weight loss as well as worsening constipation over a few weeks and bloating for 1-2 weeks, no n/v, urinary retention requiring thakur place; has never had a colonoscopy; noted to have a Hb 5.7 s/p pRBC x2 (repeat 7.4>7.0),
with a WBC of 14.8 and Cr of 2.4 (repeat 1.8). KUB showing possible bowel obstruction with air-fluid levels, CT showing a colonic obstruction at the descending colon with a mass concerning for cancer and appears to be invading the left kidney and
tail of the pancreas, significant distention with the proximal colon and small bowel, cecum measuring between 9 to 10 cm
�History and clinical findings consistent with near complete LBO due to descending colon mass with possible invasion into the left kidney and tail of pancreas; this raises the concern for an invasive colon cancer; explained the pathophysiology and
treatment options for obstructing colon mass to the patient, patient's and patient's son; options include attempt at colonic stent versus exlap with creation of diverting ostomy; resecting the colon mass initially does not appear possible with
the CT findings concerning for invasion into the kidney and tail of the pancreas, this would make this a T4b cancer which may be better treated with neoadjuvant chemotherapy; explained the risks of stent placement including but not limited to
inability to place the stent; in this situation, a surgery with ostomy creation would become necessary; explained the risks benefits and alternatives of surgery and the patient and patient's understood, all questions were answered; in
preparation for possible surgery after attempt at colonic stent, consent was signed by patient and placed in the chart
�Recommend strict n.p.o.; attempted NGT placement x 4 (twice by me and NGT coiled in the mouth), patient refusing further attempts at this point
-if patient amenable, would attempt placement of NGT in AM
� IVF
� Pain control, avoid narcotics
� Appreciate GI, discussed with Dr. Enamorado and plans for colonic stent placement first thing in the morning
-currently, patient's abdomen is nontender and no signs of hemodynamic instability; will need close monitoring overnight for signs of clinical worsening
�Hold AC and DVT PPx; trend Hb; will give another pRBC tonight in preparation for possible surgery
�Continue Thakur, strict I's/O
� Appreciate hospitalist
[2024-04-03] MEDS: NSS IV (20:11)
--- NOTE | 2024-04-03 21:14 | PTCARENOTE ---
verbal order received from Dr. Verduzco to give x1 tap water enema, enema given with no effect, no stool. 1 unit of PRBC's ordered and hung. thakur intact draining yellow urine. pt reports feeling bloated, belly distended, non-tender, firm and round.
NG was unable to be placed during the day after x4 attempts. pt burping but no flatus. pt has been ST 100-110s on the monitor. able to stand at bedside x1 assist. SOB exertion, oxygen down to 80s a times, 2L NC placed on patient. now 93%. care
ongoing.
[2024-04-03] MEDS: ZYPREXA 15 MG PO (21:42)
[2024-04-03] MEDS: AMBIEN 10 MG PO (21:42)
[2024-04-04] VITALS (15 sets, daily range): BP systolic 94–157; BP diastolic 65–114; BMI 24.5
--- NOTE | 2024-04-04 01:17 | PTCARENOTE ---
pt found standing at bedside, SOB on exertion, some wheezes on exertion. pt on BSC, able to have large formed, hard BM's. heme positive. pt was found to be manually disimpacting himself, advised patient to stop. pt placed back to bed, stated his
abdomen feels a little better. bed alarm now on d/t patient getting OOB without calling. care ongoing.
--- NOTE | 2024-04-04 02:29 | PTCARENOTE ---
pt trying to climb OOB again, setting bed alarm off. pt woke up from a dream confused. reoriented easily. pt with audible wheezes. notified respiratory to give a breathing treatment. pt placed back to bed. notified covering RETIREMENT ADMINISTRATOR- IV fluids off for
the time being. care ongoing.
[2024-04-04] MEDS: XOPENEX 1.25 MG INHALANT SOLUTION INH ×2 (02:30→07:31)
[2024-04-04] MEDS: NSS IV (04:23)
[2024-04-04 04:42] LABS: Hematocrit 25.1 % (39.0-52.0); Hemoglobin 8.1 g/dL (13.0-18.0); Mean Corp Hgb Conc. 32.3 g/dL (33.0-37.0); Mean Corpuscular Hgb 22.2 pg (27.0-31.0); Mean Corpuscular Volume 68.8 fL (80.0-94.0); Mean Platelet Volume 8.4 fL (7.4-10.4); Platelet Count 661 10^3/uL (130-400); Red Blood Cell Count 3.65 10^6/uL (4.70-6.10); Red Cell Dist. Width 21.6 % (11.5-14.5); White Blood Cell Count 11.7 10^3/uL (4.8-10.8)
[2024-04-04 04:44] LABS: INR 1.17; PT 14.7 Sec (11.4-14.6)
[2024-04-04 05:21] LABS: Blood Urea Nitrogen 44 mg/dl (9-20); Calcium 9.3 mg/dl (8.4-10.2); Carbon Dioxide 22 mmol/L (22-30); Chloride 98 mmol/L (98-107); Estimated Creatinine Clearance 40 ml/min; Glucose 105 mg/dl (70-99); Magnesium 3.3 mg/dl (1.6-2.3); Potassium 3.6 mmol/L (3.5-5.1); Sodium 135 mmol/L (135-145); eGFR 44.46
[2024-04-04 05:32] LABS: NT-proBNP 234 pg/ml
--- NOTE | 2024-04-04 07:04 | PTCARENOTE ---
pt with vomiting this AM- brown liquid, fouling smelling. pt stated the nausea just came on suddenly. pt cleaned up. notified night SHEET METAL SMITH and resident this AM, IV zofran ordered and given. report to dayshift RN.
[2024-04-04] MEDS: ZOFRAN 4 MG IV (07:07)
--- NOTE | 2024-04-04 08:35 | PTCARENOTE ---
At start of shift patient was climbing out of bed, vomiting, pulse ox 88% on room air, tachycardia in the 130s, tachypnea in the 30s. Midflow at 10 liters applied, NGT tube placed in left nare by GI doctor. Patient improved quickly. Patient is
denying pain when asked right now, NGT output 1400.
[2024-04-04 08:58] LABS: B.E. 0.5 mmol/L; HCO3 24.6 mmol/L (21-28); O2 Saturation % 95.3 % (94-98); PCO2 37 mmHg (35-48); PO2 64 mmHg (83-108); pH 7.43 (7.35-7.45)
--- NOTE | 2024-04-04 09:00 | W.PN.HOSP.TC ---
Addendum entered and electronically signed by Munir Malave MD 04/04/24 21:55:
Attending Addendum-I saw and evaluated the patient. I reviewed the resident�s note and agree with findings and plan as documented in the resident�s note. Called by nursing this am re aspiration event and distress noted afterwards. NG able to be
placed bedside by GI. Patient with significant symptomatic improvement after NGT draining brown foul smelling fluid. States NG tube is uncomfortable. Had large black colored BM last PM. Full 12 point ROS reviewed and negative except as documented
Exam- vitals reviewed in chart GEN-mild distress with NG tube in place draining brown fluid, heart regular tachycardic lungs scattered crackles throughout abd less distended decreased BS in all 4 quads NT no rebound or guarding -- thakur in place
draining concentrated yellow urine Plan:
# Large Colonic Mass/Acute on Chronic Blood Loss Anemia/GI Bleed-
- still orthostatic and tachycardiac
- GI input appreciated
- CR surg consult- input appreciated
- CT A/P 04/03-reviewed with rads- colonic obstruction at the level of the superior aspect of the descending colon. mass with associated colonic wall thickening, mass extends to the tail of the pancreas and the adjacent left kidney, and findings
suggest invasion of these structures.
Significant distention of the colon with air and fluid extending to the level of obstruction. There is also significant distention of small bowel loops with air, fluid, and contrast, with administered oral contrast extending to the mid small bowel.
- Exploratory laparotomy, takedown of splenic flexure, loop transverse colostomy, partial omentectomy, TAP block on 04/04
- cont NPO IVF
- IV PPI BID
- transfused 3 units prbc thus far
- trend CBC daily
# Sinus tachycardia
- cont IVF
- likely from dehydration/hypovolemia
# Acute Hypoxemic Respiratory Failure
- likely due to aspiration
- wean o2 as tolerated
# CANELO
- mildly improved 1.7
- post renal from colonic obstruction and dilation
- renal US reviewed-with distended bladder no hydro
- cont Thakur
- repeat BMP in am
- cont IVF
# Leukocytosis
- resolving
- blood cx NGTD
- cont to monitor
- repeat CBC in am
# Hypermagnesemia
- likely from MOM use and renal failure
- repeat Mg in am
# Insomnia
- chronic Ambien use
- continue
# Peripheral Neuropathy
- hold gabapentin
# Bipolar
- cont zyprexa
# Sarcoidosis
- f/u as OP
- stable
DVT proph- SCDs
Code- Full
Time spent coordinating care, review of plan of care with resident, review of records, med rec, consults, notes, labs, rads, d/w nursing radiology GI - 65 mins
Original Note:
Today's Communication/Plan
-
Exploratory laparotomy
N.p.o.
IV fluids
NGT decompression with low continuous suction
Monitor hemodynamic status/vitals closely
Assessment / Plan
Assessment / Plan
#Acute hypoxic respiratory failure
-On 10 L oxygen, saturating at 93%, tachypneic, bilateral wheezes/crackles
-Possibly secondary to hypoventilation due to insufficient lung expansion from compression due to distended abdomen
-Vitals stabilized after NGT decompression
-Continue NG tube decompression with low continuous suction
-Monitor vitals
-Check lactate, ABG
-ABG-hypoxemia PaO2 64
-Empiric Unasyn to prevent aspiration pneumonia
# Acute on chronic anemia secondary to GI blood loss/chronic constipation
-GB score�13
-Transfused 3 PRBC , hemoglobin 8.1 today
-GI and Colorectal consulted
-CT scan with oral contrast- There is colonic obstruction at the level of the superior aspect of the descending colon. In this region, there is a mass with associated colonic wall thickening, and this very likely represents an obstructing colonic
carcinoma. This mass extends to the tail of the pancreas and the adjacent left kidney, and findings suggest invasion of these structures. As a differential consideration, the mass could originate from the pancreatic tail or the left kidney, but this
is felt to be less likely.
Significant distention of the colon with air and fluid extending to the level of obstruction. There is also significant distention of small bowel loops with air, fluid, and contrast, with administered oral contrast extending to the mid small bowel.
No evidence of free intraperitoneal air. No evidence for pneumatosis.
There is a small to moderate amount of free fluid within the abdomen and pelvis.
2 mm calcification the central lower pole of the left kidney, likely a nephrolith.
-NG tube decompression, post NGT abd X-ray for position
-GI/colorectal had discussed with the patient about the possible options of further management
-Patient consented for exploratory laparotomy with colectomy/colostomy
-strict n.p.o. with NGT to low continuous suction
-Continue IVF resuscitation
-Continue Thakur, strict I/O's
-Continue Protonix
#CANELO/urinary retention
Possibly postrenal
IV fluids
Thakur in place
Renal ultrasonogram-Extremely distended urinary bladder, 4232 ml. Patient unable to void. Only the left ureteral jet was visualized.
Kidneys of normal size. No hydronephrosis. Simple cyst in the left kidney.
Urinalysis
Trend I&O's
#Leukocytosis
Lactate 1.1
Blood culture no growth in 24 hours
Repeat CBC a.m.
#Hypermagnesemia
3.4
Trend
#History of bipolar disorder
Continue olanzapine
#Continue Ambien for insomnia
#DVT prophylaxis SCDs
Anticipated Discharge: > 48 hours
Subjective/Interval History
-
Date of Service: April 04, 2024
4 attempts were made for NG tube placement yesterday night. 1 PRBC transfusion. Patient had shortness of breath, was wheezing and tachypneic and appeared confused as per the nursing. He required 6 L oxygen, Xopenex nebulization given. He had 1
large bowel movement with heme positive stools.
In the a.m. today patient had an episode of vomiting [dark], 1 dose of IV Zofran administered. Patient was tachypneic, tachycardic, bilateral wheezing/crackles. He was on 10 L oxygen.
Colorectal surgery/GI consulted
NGT placement with low continuous suction�1500 mL greenish-brown fluid
Thakur in place
Objective Data
-
Labs:
Laboratory Results
04/04/24 04/04/24
04:18 08:43
WBC 11.7 H
Hgb 8.1 L
Hct 25.1 L
Plt Count 661 H
PT 14.7 H
INR 1.17
HCO3 Pending
Sodium 135
Potassium 3.6
Chloride 98
Carbon Dioxide 22
BUN 44 H
Creatinine 1.7 H
Glucose 105 H
Calcium 9.3
Vital Signs:
Vital Signs
Temp Pulse Resp BP Pulse Ox
99.4 F 118 22 122/89 94
04/04/24 04:11 04/04/24 07:35 04/04/24 07:35 04/04/24 04:00 04/04/24 07:35
I&O
04/03/24 04/04/24 04/05/24
06:59 06:59 06:59
Intake Total 500 / 500 250 / 250
Output Total 600 / 600 800 / 800 1500 / 1500
Balance -100 / -100 -550 / -550 -1500 / -1500
Review of Systems
-
All other systems: Reviewed and negative (As per HPI)
Physical Exam
-
General: Appears in Distress
HEENT: Normocephalic and Atraumatic
Respiratory: Wheezes and Crackles
Cardiac: S1/S2 and Tachycardic
GI: Nontender, Distended and Other (Bowel sounds positive in 2 quadrants)
Skin: Warm and Dry
Neuro: Awake, Alert, Oriented and AO x 3
[2024-04-04 09:02] LABS: O2 Therapy pt on 10 L oxygen
[2024-04-04] MEDS: FLOMAX PO (09:06)
--- NOTE | 2024-04-04 09:06 | W.PN.GI.CBS2 ---
Addendum entered and electronically signed by Venus Verduzco MD 04/04/24 13:21:
I saw and examined the patient.
The ORDER ADMINISTRATOR or PA's note was reviewed and I agree with the note.
Comment: Discussed with patient and regarding CT results.
Patient's status post NG tube please-significant amounts of light brown material drained out
Continue NG decompression
Prophylactic antibiotics for possible aspiration risk
Patient for possible colonic stent placement versus OR for colostomy later today
Will follow
Original Note:
Today's Communication / Plan
-
Ct as noted with concern for mass with extension to pancreas and left kidney
+ vomiting overnight
NGT attempted 04/03 without success- placed this am by Dr. Verduzco drained over 2 canisters light brown material and still draining --continue decompression to LIS for now
Pt feeling improved
Dr. Enamorado and Dr. Bermudez following for further intervention possible later today -- attempted stent vs OR pending clinical status with O2 demand
cont NPO
hbg 8.1 cont to follow
updated with NGT placement and concern for aspiration
reviewed with GI team, surgery and medical team
Assessment / Plan
-
Pt is a 64yo with hx HTN, hypercholesterolemia, sarcoidosis, insomnia with onset of fatigue, falls, dizziness and lightheadedness over a few weeks. Per patient he also admits to recent intentional wt loss of 50 lbs over last 6 months. On
admission hbg 5.7 with MCV 65.3, WBC 14.8, Platelets 681, creat 2.4, 10.5, mag 3.2. Imaging with obstruction series with chronic lung changes no free air but distended SB loops with concern for partial or intermittent Small bowel obstruction.
Renal US with concern for severe urinary bladder distention with placement of thakur for 600ml output. Pt also with some complaints of constipation with enema given on admission for only small stool.
04/03/24 CT A/p oral only
There is colonic obstruction at the level of the superior aspect of the descending colon. 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 This mass extends to
the tail of the pancreas and the adjacent left kidney, and findings suggest invasion of these structures. As a differential consideration, the mass could originate from the pancreatic tail or the left kidney, but this is felt to be less likely.
Significant distention of the colon with air and fluid extending to the level of obstruction. There is also significant distention of small bowel loops with air, fluid, and contrast, with administered oral contrast extending to the mid small bowel.
No evidence of free intraperitoneal air. No evidence for pneumatosis.
There is a small to moderate amount of free fluid within the abdomen and pelvis.
2 mm calcification the central lower pole of the left kidney, likely a nephrolith.
Small bilateral pleural effusions.
-severe microcytic anemia(iron studies not accurate done post transfusion)
-reports of intermittent black stools
-colonic distention/constipation
-abnormal CT with concern for colonic obstruction descending colon with mass with extension to tail of pancreas and left kidney
-concern for increased O2 demand 04/04 ? aspiration with vomiting
-recent weight loss- intentional per patient
-bladder distention with placement of thakur catheter
-CANELO
-recent falls/weakness on admission
-thrombocytosis
-leukocytosis
other medical problems:
-HTN
-hypercholesterolemia
-sarcoidosis
-insomnia
PLAN:
Ct as noted with concern for mass with extension to pancreas and left kidney
+ vomiting overnight
NGT attempted 04/03 without success- placed this am by Dr. Verduzco drained over 2 canisters light brown material and still draining --continue decompression to LIS for now
Pt feeling improved
Dr. Enamorado and Dr. Bermudez following for further intervention possible later today -- attempted stent vs OR pending clinical status with O2 demand
cont NPO
hbg 8.1 cont to follow
updated with NGT placement and concern for aspiration
reviewed with GI team, surgery and medical team
Subjective
Subjective
Date of Service: April 04, 2024
concern for vomiting overnight and inability to place NGT, stool brown black hard, increased O2 demand to 10 liter overnight
Objective
Data Reviewed
Laboratory Data:
Laboratory Results
04/04/24 04:18
04/04/24 04:18
Laboratory Results
PT 14.7 Sec (11.4-14.6) H 04/04/24 04:18
INR 1.17 04/04/24 04:18
Magnesium 3.3 mg/dl (1.6-2.3) H 04/04/24 04:18
Total Bilirubin 0.3 mg/dl (0.2-1.3) 04/02/24 11:49
AST 16 U/L (17-59) L 04/02/24 11:49
ALT 11 U/L (0-50) 04/02/24 11:49
Alkaline Phosphatase 89 U/L (38-126) 04/02/24 11:49
Vital Signs and I&O:
Vital Signs
Temp Pulse Resp BP Pulse Ox
99.4 F 118 22 122/89 94
04/04/24 04:11 04/04/24 07:35 04/04/24 07:35 04/04/24 04:00 04/04/24 07:35
I&O
04/03/24 04/04/24 04/05/24
06:59 06:59 06:59
Intake Total 500 / 500 250 / 250
Output Total 600 / 600 800 / 800 1500 / 1500
Balance -100 / -100 -550 / -550 -1500 / -1500
Physical Exam
Physical Exam
HEENT: Anicteric and Moist mucous membranes
Cardiology: Other (tachy)
Pulmonary: Other (decreased )
GI: Soft, Distended and Tender (minimal)
Neuro: Non Focal
[2024-04-04] MEDS: NSS (PRESERVATIVE FREE) 10 ML IV ×2 (09:13→19:09)
[2024-04-04] MEDS: PROTONIX IV 40 MG IV ×2 (09:13→19:09)
[2024-04-04] MEDS: NSS 1000 IV ×2 (09:13→18:30)
[2024-04-04] MEDS: UNASYN IV ×3 (09:14→21:04)
--- NOTE | 2024-04-04 10:18 | W.PN.CRS1 ---
Today's Communication / Plan
-
ngt
cea
colonic stenting by GI - possible OR
Assessment/Plan
-
64 yo male presents with dizziness and falls with associated weight loss and constipation, found to have a colonic obstruction at the level of the superior aspect of the descending colon. In this region, there is a mass with associated colonic wall
thickening, and this very likely represents an obstructing colonic carcinoma. This mass extends to the tail of the pancreas and the adjacent left kidney, and findings suggest invasion of these structures. Has vomited during the night/this AM, NGT
attempt yesterday failed, now refusing NGT.
WBC: 11.7. Tachycardic 110's to 120's. BP stable.
Plan:
1. Given amount of vomiting, spoke to patient about need for NGT and he has agreed to try again.
2. For possible colonic stent today by GI. We will be on standby if he requires surgery.
3. CEA added.
4. Remain NPO with NGT. No meds down NGT.
5. Hold anticoagulation for ?surgery.
6. Will follow.
Subjective Data
Subjective Data
Date of Service: April 04, 2024
Patient has been vomiting multiple times since last night. He states his abdominal pain has improved since vomiting. He is a little confused.
Objective Data
-
Vital Signs
Temp Pulse Resp BP Pulse Ox
99.4 F 118 22 122/89 94
04/04/24 04:11 04/04/24 07:35 04/04/24 07:35 04/04/24 04:00 04/04/24 07:35
Intake & Output
04/03/24 04/04/24 04/05/24
06:59 06:59 06:59
Intake Total 500 / 500 250 / 250
Output Total 600 / 600 800 / 800 1500 / 1500
Balance -100 / -100 -550 / -550 -1500 / -1500
Intake:
Blood Product Amount Infused ( 500 / 500 250 / 250
mL)
Packed Rbc Leukoreduced Unit 250 / 250
[id number]
Packed Rbc Leukoreduced Unit 250 / 250
[id number]
Packed Rbc Leukoreduced Unit 250 / 250
[id number]
Output:
Gastrointestinal tube output ( 1500 / 1500
Total)
[place] Sump 1500 / 1500
Urine, Nev[place] 600 / 600 800 / 800
Lab Results
04/04/24 04:18
04/04/24 04:18
Physical Exam
-
General: No Acute Distress and AOx3
Abdomen: Soft, Distended and Non Tender
Skin: Warm and Dry
[2024-04-04 10:19] LABS: Lactic Acid 1.1 mmol/L (0.7-2.0)
--- NOTE | 2024-04-04 13:37 | PTCARENOTE ---
Report given to OR Nurse preop. Patient and educated about plan of care. NGT clamped for travel, approved by gi team.
--- NOTE | 2024-04-04 13:51 | WOUNDNOTE ---
[facility] RN Note: Stoma marked RUQ, RLQ and LUQ per Dr. Bermudez's request. Patient on his way to surgery shortly. Stoma marked in flat and in chair position in his [facility] air bed. Stoma marked over the rectus muscle avoiding any skin creases.
Patient instructed surgeon make the final decision with stoma placement. RUQ stoma jasmine 6.1cm to R of midline and 3.3cm above the umbilical line. RLQ stoma jasmine 1.6cm distal to umbilical line and 6cm to R of midline. LUQ 5.5cm to L of midline and
4.5cm above the umbilical line. Patient confirmed can be present and contacted for any ostomy teaching sessions.
[2024-04-04 14:39] LABS: B.E. - POC -1.1 mmol/L; Glucose - POC 93 mg/dl (65-99); HCO3 - POC 24 mmol/L (21-29); Hematocrit - POC 27 % PCV (42-52); Hemodilution- POC Yes; Ionized Calcium - POC 1.21 mmol/L (1.12-1.27); Lactate - POC 0.58 mmol/L (0.36-0.75); O2 Saturation %Calculated-POC 99.7 5 (92-96); PCO2 - POC 42 mmHg (35-45); PO2 - POC 194 mmHg (80-100); Potassium - POC 3.1 mmol/L (3.6-5.0); Sodium - POC 139 mmol/L (135-145); pH - POC 7.37 (7.35-7.45)
[2024-04-04 16:20] LABS: B.E. - POC -3.8 mmol/L; Glucose - POC 105 mg/dl (65-99); HCO3 - POC 22 mmol/L (21-29); Hematocrit - POC 30 % PCV (42-52); Hemodilution- POC Yes; Hemoglobin Calculated - POC 10.3; Ionized Calcium - POC 1.16 mmol/L (1.12-1.27); Lactate - POC 0.89 mmol/L (0.36-0.75); PCO2 - POC 44 mmHg (35-45); PO2 - POC 99 mmHg (80-100); Potassium - POC 3.7 mmol/L (3.6-5.0); Sodium - POC 138 mmol/L (135-145); pH - POC 7.31 (7.35-7.45)
--- NOTE | 2024-04-04 17:54 | PTCARENOTE ---
Patient for transfer to room 3372 post op. Family notified. Report discussed with Nicolás FREIRE in ICU. Belongings to be packed up by .
--- NOTE | 2024-04-04 18:14 | W.IMMPOSTOP ---
Surgical Immed Post Op Note
-
Primary Surgeon: Heber Bermudez MD
Assisting Surgeon: STEPHANE Wilhelm
Pre-op Diagnosis: Large bowel obstruction due to proximal descending colon mass
Post-op Diagnosis: Large bowel obstruction due to proximal descending colon mass
Procedure Performed: Exploratory laparotomy, takedown of splenic flexure, loop transverse colostomy, partial omentectomy, TAP block
Anesthesia Type: General
Specimen / Cultures: partial omentum
IVF: 4.0L
NGT: 1.7L
UOP: 300mL
Estimated Blood Loss: 20 mL
Complications: None
Operative Findings: Started with upper midline incision and large ketty; I encountered small amount of clear ascites; due to significant distention of small and large bowel, extended incision to 2 cm below the umbilicus and set up the bookwalter;
explored the abdomen and did not notice any concern for peritoneal spread; cecum significantly distended but completely healthy without signs of ischemia; ran the large bowel from the cecum to the proximal descending colon mass; was able to palpate
the mass which felt hard and immobile; difficult to assess but it did appear to be invasive into the kidney and most likely the tail of the pancreas as well; the transverse colon was not very mobile; patient had undergone preoperative stoma marking
and transverse colon did not easily reach markings; due to distended cecum and ascending colon, I elected to mobilize the transverse in order to reach to the left upper quadrant marking; I began by entering the lesser sac and dividing the
gastrocolic ligament from the mid transverse up to the splenic flexure; I divided the congenital attachments from the posterior stomach to the pancreas; I mobilized the splenic flexure to the point of the fixed proximal descending colon mass; reach
was improved but still not adequate; continued taking down the lesser sac attachments to the level of the proximal transverse colon; at that time, the transverse colon was freely mobile and easily reached the LUQ marking; I ran the bowel up until a
loop of distal ileum that was adherent in the lower right pelvis and difficult to visualize; the small bowel for the visualized length was healthy without signs of ischemia or adhesions; I milked the gas and fluid from the distal most point of the
mobile small bowel proximally to the duodenum and the NG tube suctioned an additional 1.2 L; confirmed NG tube placement in the stomach with palpation; a significant pedicle of omentum appeared devascularized so I performed a partial omentectomy
using the ligasure; I made a 3 cm circular incision at the LUQ marking and excised the karuk of skin; brought this down to the level of the fascia and made a cruciate incision in the anterior and posterior fascia; I placed a red rubber at the
proposed site of colostomy and pulled this through the LUQ trephine; the loop of transverse passed through easily and seated 3 cm above the skin; placed a 4cm ostomy roxann; I started closure by starting to run 0 PDS at each end of the incision; after
5 cm, I then performed an open tap block and placed Seprafilm around the colostomy and under the midline incision; I closed the fascia, irrigated the subcutaneous tissue, confirmed hemostasis and closed skin intermittently with intermittent Telfa
deanne; I then matured the loop colostomy with the functional limb oriented superiorly and brooked, and the defunctional limb oriented inferiorly and not brooked; based on the patient's respiratory status (episodes of vomiting the prior night with
concern for subtle aspiration), anesthesia elected to keep him intubated as a precaution
--- NOTE | 2024-04-04 18:43 | PTCARENOTE ---
1816-Received pt from OR via bed.Bedside report received from CL[facility] GENERAL [facility].
Pt is unresponsive to verbal and tactile stimuli.He was not reversed from anesthesia as per [facility].SR noted.IVF infusing.Right A Line intact and zeroed.# 8 ETT at 22 cm to vent.Decreased breath sounds throughout.POX 97%Bronson NGT via left nares
draining green brown fluid.Budded red ostomy intact without drainage noted.Neville draining yellow urine.Midline incision intact with Aquacel with no drainage noted.
[2024-04-04] MEDS: SUBLIMAZE 100 MCG IV (19:06)
[2024-04-04] MEDS: SUBLIMAZE 100 IV (19:07)
[2024-04-04] MEDS: DIPRIVAN 100 IV (19:09)
[2024-04-04 19:17] LABS: B.E. -3.3 mmol/L; HCO3 22.1 mmol/L (21-28); Hematocrit 26.2 % (39.0-52.0); Hemoglobin 8.6 g/dL (13.0-18.0); Mean Corp Hgb Conc. 32.8 g/dL (33.0-37.0); Mean Corpuscular Hgb 23.2 pg (27.0-31.0); Mean Corpuscular Volume 70.6 fL (80.0-94.0); Mean Platelet Volume 8.2 fL (7.4-10.4); O2 Saturation % 99.8 % (94-98); PCO2 40 mmHg (35-48); PO2 133 mmHg (83-108); Platelet Count 532 10^3/uL (130-400); Red Blood Cell Count 3.71 10^6/uL (4.70-6.10); Red Cell Dist. Width 23.4 % (11.5-14.5); White Blood Cell Count 7.5 10^3/uL (4.8-10.8); pH 7.35 (7.35-7.45)
[2024-04-04] MEDS: SUBLIMAZE 50 MCG IV ×3 (19:24→22:59)
[2024-04-04 19:27] LABS: INR 1.35; PT 16.7 Sec (11.4-14.6)
[2024-04-04 19:28] LABS: APTT 30.8 Sec (23.4-35.0)
[2024-04-04 19:31] LABS: Blood Urea Nitrogen 37 mg/dl (9-20); Calcium 7.1 mg/dl (8.4-10.2); Carbon Dioxide 20 mmol/L (22-30); Chloride 105 mmol/L (98-107); Estimated Creatinine Clearance 42 ml/min; Glucose 84 mg/dl (70-99); Magnesium 2.8 mg/dl (1.6-2.3); Phosphorus 3.4 mg/dl (2.5-4.5); Potassium 3.8 mmol/L (3.5-5.1); Sodium 136 mmol/L (135-145); Triglycerides 51 mg/dl (10-149); eGFR 47.82
--- NOTE | 2024-04-04 19:31 | OR.RPT ---
Operative Report
Operative Report
DATE OF OPERATION: 04/02/2024
SURGEON: Heber Bermudez MD
PREOPERATIVE DIAGNOSIS: Large bowel obstruction due to proximal descending colon mass
POSTOPERATIVE DIAGNOSIS: Large bowel obstruction due to proximal descending colon mass
OPERATION: Exploratory laparotomy, takedown of splenic flexure, loop transverse colostomy, partial omentectomy, TAP block
ASSISTANTS:
1. STEPHANE Wilhelm
ANESTHESIA: General
ESTIMATED BLOOD LOSS: 20 mL
UOP: 300 mL, 1.7 L output from NGT
IVF: 4.0 L
FINDINGS:
1. Diffusely dilated small bowel and significantly dilated cecum; no evidence of ischemia or serosal tearing on visible small bowel or cecum
2. Palpable, immobile proximal descending colon mass, most likely the known colon mass, with palpable invasion into the retroperitoneum
3. Mobilized the splenic flexure and created a loop distal-transverse colostomy in the LUQ
SPECIMENS:
1. Partial omentum
DRAINS: None
COMPLICATIONS: No immediate complications.
INDICATIONS: The patient is a 64-year-old male who presented with a couple of weeks of weakness and dizziness associated with worsening constipation, having one BM about once a week for the last 3 to 4 weeks. He then developed abdominal distention
over the last week and presented to the [place] ED. Denied abdominal pain. On CTAP, he was discovered to have a large bowel obstruction due to a proximal descending colon mass, with concern of invasion into the left kidney and tail of the
pancreas. Initially, the case was discussed with advanced GI for a colonic stent to be placed the following morning. An NG tube was attempted to be placed the first night, but failed and the patient refused further attempts despite the risks
discussed with him. Over the first night, the patient vomited and was more tachycardic. The GI team was able to place an NG tube with return of about 3 L of feculent material. After further discussion with advanced GI, I was concerned about the
possible invasion into the kidney and that placing a stent would be higher risk in this situation. Furthermore, I was concerned that the tachycardia may be related to ischemia of the cecum. Therefore, I recommended undergoing an exploratory
laparotomy for possible loop colostomy and possible bowel resection. The operation was discussed with the patient and patient's in detail, including the risks, benefits and alternatives. Risks described included, but not limited to, bleeding,
infection, anastomotic leak if anastomosis is created, injury to nearby structures (i.e.�kidney, ureter, bowel, spleen, stomach, pancreas), discovery of complication related to the colon mass necessitating en bloc resection, discovery of ischemic
cecum necessitating additional colectomy and anesthetic risks including but not limited to, respiratory failure and prolonged intubation. The patient and patient's spouse understood and agreed to proceed.
PROCEDURE IN DETAIL: The patient was taken to the operating room and placed on the operating table in supine position. Preoperatively, the ostomy nurse placed markings in the LUQ, RUQ and RLQ. Sequential compression devices were placed bilaterally.
General anesthesia was then induced and the patient was intubated without complication. The patient was then placed in lithotomy position with the arms extended and secured to the arm boards. A Neville catheter was already in place. Anesthesia
confirmed that the NG tube was functioning. The patient recently received a dose of Unasyn. The abdomen was then prepped and draped in a sterile fashion. A marking pen was used to jasmine out the midline. A time-out was then performed verifying the
correct patient, procedure, operative site, positioning, and special equipment.
An upper midline incision was created using a #10 scalpel. This was taken down to the level of the fascia with Bovie electrocautery. Hemostasis was achieved. The linea alba was incised, revealing preperitoneal fat. Using Kellys, the preperitoneal
fat was spread and the peritoneum was grasped and elevated. The peritoneum was incised taking care to avoid injury to underlying structures. Abdominal entry was achieved. Minimal clear ascites was encountered. The small bowel was significantly
distended, so I extended my midline incision to about 2 cm below the umbilicus. I placed a large Tod wound protector and set up the Bookwalter retractor. I then explored the abdomen. The cecum was distended but completely healthy. No evidence
of ischemia or serosal injuries from the distention. The ascending colon and transverse colon were less distended and also healthy. I retracted the omentum above the transverse colon and placed the patient in reverse Trendelenburg with right side
down. I palpated the transverse colon up to the splenic flexure and down the descending colon. I was able to palpate the proximal descending colon mass, but it was oriented quite posteriorly and I was unable to directly visualize this due to the
small bowel distention. On palpating the mass, it was hard, immobile and adherent to the retroperitoneum. Therefore, I elected to forego a formal en bloc resection until further workup of this mass could be complete. I checked the tension from the
transverse colon to the LUQ ostomy marking site and the reach was inadequate. As there was less distention in the distal transverse, I decided to create a LUQ ostomy by freeing up the distal transverse colon, as opposed to attempting to create a
RUQ transverse colostomy using more dilated proximal transverse colon.
I began by dividing the gastrocolic ligament starting at the mid transverse colon and entering the lesser sac. This was confirmed by visualizing the posterior wall of the stomach. I took down some congenital attachments within the lesser sac from
the posterior wall of the stomach to the pancreas with sharp dissection. I continued dividing the gastrocolic ligament distally to the splenic flexure. Then, using a combination of blunt dissection and LigaSure, I took down the splenocolic
attachments and freed up the splenic flexure completely to the point of the fixed proximal descending colon mass. Hemostasis was checked at this point and confirmed. I reassessed the reach to the LUQ marking site and reach was still inadequate.
Therefore, I continued mobilizing the transverse colon from the omentum and the lesser sac attachments up to the proximal transverse colon, taking care to avoid injury to the pancreas, duodenum and posterior stomach. At this point, I had more than
adequate reach to my proposed ostomy site. I then ran the bowel from the ligament of Treitz to a point on the distal ileum that was adherent to the lower right pelvis due to previous adhesions. The small bowel that was visualized was healthy
without any signs of ischemia or injuries. The adhesions to the distal ileum were not causing any obstruction, ischemia or other concerns, so I left these adhesions alone. I then milked the intraluminal contents from the distal ileum to the
ligament of Treitz. Anesthesia confirmed an additional 1.2 L of fluid evacuated from the NG tube. I then palpated the NG tube within the stomach and confirmed placement. I again assessed the operative site for hemostasis, which was confirmed.
Additionally, no bleeding was noted from the LUQ and no injuries noted along the lesser sac. A portion of the omentum associated with the distal transverse colon did appear ischemic so I performed a partial omentectomy with the LigaSure. This was
passed off as specimen.
I turned my attention to creating the LUQ ostomy trephine. I grasped the skin at the LUQ ostomy marking site and made a circular incision in the skin about 3 cm in diameter. I excised the skin and this was discarded. I then bluntly dissected down
to the level of the fascia using Army-Lamboglia retractors. I placed a folded-up ABD pad under the abdominal wall to protect the bowel. I then created a cruciate incision in the anterior fascia. I used a long Dana to split the rectus muscle and
expose the posterior fascia. I then created a cruciate incision in the posterior fascia, landing on the ABD pad. I then passed 3 fingers through the trephine to ensure appropriate size for a loop colostomy. I then selected a point in the distal
transverse colon with the best reach of the ostomy site and created a hole in the mesenteric border. I passed a red rubber catheter through the hole and pulled this through the ostomy trephine. The loop of transverse colon passed easily and seated
about 3 cm above the skin. I then passed a 4 cm ostomy roxann within the mesenteric hole. The functional end of the loop was oriented cephalad and the defunctional loop was oriented caudally. After ensuring appropriate position of the loop of
transverse colon, the colon remained well-perfused. Therefore, I turned my attention to closing the midline incision.
I closed the linea alba with running 0 PDS starting at each corner of the incision and ended in the middle. Prior to complete closure of the fascia, I placed Seprafilm around the colostomy and under the midline incision. I performed a TAP block and
injected 15mL of 0.25% Marcaine with dexamethasone in three locations bilaterally in the transversus abdominis plane. Once the fascia was closed, I irrigated the subcutaneous tissue and confirmed hemostasis with electrocautery. I closed the skin
intermittently and placed Telfa deanne in the gaps. I then matured the loop colostomy. I matured the functional loop in a brooked fashion with 3-0 Vicryl's, which was oriented cephalad to the defunctional loop. I matured the defunctional loop in a
non-brooked fashion. The colostomy remained well-perfused at the completion. My pinky finger was passed through each loop and there was no blockage or stenosis noted. The abdomen was cleaned with wet gauze and an Aquacel was placed over the
midline incision. The ostomy appliance was placed over the ostomy.
At this point, the procedure was complete. After discussing the case with anesthesia, there were no issues with ventilation during the surgery, but the decision was made to keep the patient intubated due to the episodes of vomiting the night prior
and possible aspiration. All needle, sponge and instrument counts were reported as correct. The patient tolerated the procedure well and was transferred to the recovery room in stable condition with the nasogastric tube and Neville in place.
DICTATED BY: Heber Bermudez MD
--- NOTE | 2024-04-04 20:00 | PTCARENOTE ---
rec'd patient. pt intubated and sedated. b/l soft wrist restraints in place. propofol and fentanyl gtts infusing. R radial arterial line in place, leveled and zeroed. SR on monitor. afebrile. + pedal pulses. #8 ETT, 25 at lip on R side. vent
settings: AC 12/500/5/70%. lungs CTA. new colostomy in place, stoma red and budded. midline abdominal incision dressing C/D/I. L nare NGT to LIS. thakur in place draining yellow urine. labs sent. care ongoing.
[2024-04-05] VITALS (51 sets, daily range): BP systolic 80–142; BP diastolic 45–102; PULSE 99; O2SAT 98; BMI 24.7
--- NOTE | 2024-04-05 00:46 | PTCARENOTE ---
systems reviewed. prop and fent gtts continue. pt nodding y/n appropriately. ABP extremely labile, ICU SUPERVISOR COLOR MAKING aware. pt passing gas through colostomy, stool draining. midline incision remains C/D/I. oral care provided, pt repositioned. care ongoing.
[2024-04-05] MEDS: UNASYN IV ×4 (03:25→21:14)
[2024-04-05] MEDS: NSS 1000 IV ×3 (03:26→19:28)
[2024-04-05 03:29] LABS: B.E. -3.9 mmol/L; HCO3 20.4 mmol/L (21-28); PCO2 33 mmHg (35-48); PO2 188 mmHg (83-108)
[2024-04-05] MEDS: DIPRIVAN 100 IV (03:29)
[2024-04-05 03:33] LABS: Hematocrit 24.1 % (39.0-52.0); Mean Corp Hgb Conc. 33.2 g/dL (33.0-37.0); Mean Corpuscular Hgb 23.5 pg (27.0-31.0); Mean Corpuscular Volume 70.7 fL (80.0-94.0); Mean Platelet Volume 8.2 fL (7.4-10.4); Nucleated Red Blood Cells % 0 % (-); Platelet Count 465 10^3/uL (130-400); Red Blood Cell Count 3.41 10^6/uL (4.70-6.10); Red Cell Dist. Width 23.4 % (11.5-14.5); White Blood Cell Count 8.1 10^3/uL (4.8-10.8)
[2024-04-05 03:59] LABS: ALT (SGPT) < 10 U/L (0-50); AST (SGOT) 16 U/L (17-59); Alkaline Phosphatase 62 U/L (38-126); Blood Urea Nitrogen 38 mg/dl (9-20); Calcium 7.1 mg/dl (8.4-10.2); Carbon Dioxide 21 mmol/L (22-30); Chloride 107 mmol/L (98-107); Estimated Creatinine Clearance 37 ml/min; Glucose 100 mg/dl (70-99); Magnesium 2.9 mg/dl (1.6-2.3); Potassium 4.1 mmol/L (3.5-5.1); Sodium 136 mmol/L (135-145); Total Bilirubin 1.2 mg/dl (0.2-1.3); Total Protein 4.2 g/dl (6.3-8.2); eGFR 41.51
[2024-04-05 04:13] LABS: INR 1.45; PT 17.8 Sec (11.4-14.6)
--- NOTE | 2024-04-05 04:24 | PTCARENOTE ---
systems reviewed. AM labs sent. prop and fent gtts continue. pt denies pain. ABP remains labile, increases when pt is stimulated. ETT adjusted, FiO2 decreased to 40%. care ongoing.
[2024-04-05 04:26] LABS: CEA 102 ng/ml
[2024-04-05] MEDS: SUBLIMAZE 100 IV (05:42)
[2024-04-05] MEDS: SUBLIMAZE 50 MCG IV (05:43)
[2024-04-05] MEDS: FLOMAX TUBE (07:11)
--- NOTE | 2024-04-05 07:30 | CON.INTV ---
Consultation
Consultation Request
Date/Time Consultation Requested: 04/04/24
Date/Time Consultation Performed: 04/05/24
Performing Provider: Shin
Reason for Consultation: ICU
Medical History
-
History of Present Illness:
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
Underwent obstruction series demonstrating partial versus complete small bowel obstruction. Admitted 04/02/2024. Underwent colonic resection with loop colostomy with colorectal surgery 04/04/24 and postoperatively transferred to ICU intubated and on
mechanical ventilation.
No prior known history of lung disease.
Past Medical History
Past Medical History: Other (see list below)
Social History
Tobacco: Former Smoker
Alcohol: Former
Drug: None
Family History
Family History: Reviewed & Not Pertinent
Allergies / Home Medications
Allergies
Allergy/AdvReac Type Severity Reaction Status Date / Time
No Known Allergies Allergy Verified 04/02/24 10:26
Home Medications
�Medication �Instructions �Recorded �Confirmed �Last Taken �Type
calcium carbonate (Tums) 200 mg PO QIDPRN PRN gerd 04/02/24 04/02/24 03/31/24 History
gabapentin 300 mg capsule 300 mg PO HS 04/02/24 04/02/24 04/01/24 History
magnesium hydroxide 400 mg/5 mL 2,400 mg PO DAILYPRN PRN 04/02/24 04/02/24 04/02/24 History
oral suspension (Milk of Magnesia) constipation/gerd
naproxen sodium 220 mg tablet 220 mg PO BIDPRN PRN mild pain 04/02/24 04/02/24 04/01/24 History
(Aleve)
olanzapine 15 mg tablet 15 mg PO HS Mental Health/Anxiety 04/02/24 04/02/24 04/01/24 History
zolpidem 10 mg tablet (Ambien) 10 mg PO HS Sleep 04/02/24 04/02/24 04/01/24 History
Review of Systems
-
History Source: Patient
All other systems: Negative unless noted
Vitals / Labs / Diagnostic Testing
Vital Signs
Temp Pulse Resp BP Pulse Ox
98.0 F 97 12 112/67 97
04/05/24 03:21 04/05/24 07:00 04/05/24 07:00 04/05/24 07:00 04/05/24 07:00
Lab Data
04/05/24 03:21
04/05/24 03:21
Laboratory Results
04/04/24 04/04/24 04/05/24
08:43 19:10 03:21
PT 16.7 H Cancelled
INR 1.35 Cancelled
APTT 30.8
pH 7.43 7.35 7.40
pCO2 37 40 33 L
pO2 64 L 133 H 188 H
HCO3 24.6 22.1 20.4 L
O2 Delivery Level pt on 10 l oxygen
04/05/24
03:53
PT 17.8 H
INR 1.45
APTT
pH
pCO2
pO2
HCO3
O2 Delivery Level
Microbiology
04/02/24 19:55 Blood/Venous Blood Culture - Preliminary
No Growth in 48 hours- Final report to follow
04/02/24 19:45 Blood/Venous Blood Culture - Preliminary
No Growth in 48 hours- Final report to follow
Diagnostic Testing:
Physical Exam
-
HEENT: Normocephalic, Anicteric and Moist Mucous Membranes
Cardiovascular: S1/S2 and Regular Rhythm
Respiratory: Clear and Non-Labored Respirations
GI: Soft, Non Distended, Tender (ostomy, incision) and Other (NGT)
Neurology: Awake, Alert, Oriented, AO x 3, No Motor Deficits and Tremors (chronic)
Skin: Warm and Dry
General: Comfortable and Other (NAD)
Assessment
-
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
Underwent obstruction series demonstrating partial versus complete small bowel obstruction. Admitted 04/02/2024. Underwent colonic resection with loop colostomy with colorectal surgery 04/04/24 and postoperatively transferred to ICU intubated and on
mechanical ventilation.
Colon mass with obstruction s/p Exploratory laparotomy, takedown of splenic flexure, loop transverse colostomy, partial omentectomy, TAP block 04/04/24
Acute part vs comp SBO s/p NGT placement
GIB
Acute blood loss anemia
CANELO
Leukocytosis
Thrombocytosis
Weight loss, decreased PO intake
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
Sarcoidosis with calcified left hilar and suprahilar adenopathy and mild chronic lung changes
Hypercholesterolemia
HTN
Bipolar disorder
Insomnia
GERD
Ankle surgery in
Former Smoker (quit 40 years ago)
Former alcohol (quit 6 months ago with hx 4-5 beers daily)
Plan
No current signs of metabolic encephalopathy or MS changes/following commands
Psychiatric history noted above including bipolar disorder/tremors from lithium
Denies pain at this time.
Pain/sedation: PRN
RASS goals: 0
Hemodynamically stable, not requiring pressors.
Cardiac history reviewed--HTN, HLD
No prior ECHO for review
Resume home meds
Intubated perioperatively, SBT today with plan to extubate
Vent settings reviewed, ABG post weaning
Prior history of lung disease: former smoker, no PFTs for review
Supplemental O2 as indicated to maintain sats > 89%
CXR/CT reviewed indicating changes related to sarcoid, mild ILD/chronic LN calcifications
Not on treatment for sarcoid
Colon mass s/p resection, ostomy
CRS following, maintain NGT
NPO, resume diet per team
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
Aspiration precautions, HOB > 30 degrees
Speech therapy eval can be considered if at elevated risk
GI prophylaxis if indicated for mechanical ventilation >48 hours, prior history of GERD, stress ulcer formation in the critically ill
CANELO present, creat 2.4 improving
Unknown baseline, no history of renal disease
Void trials
Follow urine output, critical I/Os
Replete electrolytes as needed
No signs/symptoms suspicious for infectious etiology at this time
Observe off antibiotics for now
Follow fever trend, WBC count
CBC reviewed, anemia on presentation, Hb 5, now 8
DVT prophylaxis as assessed based on risk, including mechanical SCDs
Can transfuse if indicated for Hb <7, plt < 10
Transfusions: 3 units pRBC
INR 1.45
Follow serial labs
No prior h/o diabetes or thyroid disease
Monitor accuchecks PRN/SS coverage if needed
We will follow
Diagnostic Data
Chest X-Ray: 04/04/24- Endotracheal tube with tip in trachea approximately 3-4 cm above the alina. Nasogastric tube tip in stomach. No findings to confirm pneumothorax. Bilateral predominantly mid lung nonspecific parenchymal opacity.
04/02/24- Chronic lung changes, consistent with the history of sarcoidosis. Poor inspiratory effort with low lung volumes. No definite superimposed acute airspace process. No free air.
CT Scan: AP 04/03/24- There is colonic obstruction at the level of the superior aspect of the descending colon. 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
This mass extends to the tail of the pancreas and the adjacent left kidney, and findings suggest invasion of these structures. As a differential consideration, the mass could originate from the pancreatic tail or the left kidney, but this is felt to
be less likely.
Significant distention of the colon with air and fluid extending to the level of obstruction. There is also significant distention of small bowel loops with air, fluid, and contrast, with administered oral contrast extending to the mid small bowel.
No evidence of free intraperitoneal air. No evidence for pneumatosis. There is a small to moderate amount of free fluid within the abdomen and pelvis.
2 mm calcification the central lower pole of the left kidney, likely a nephrolith. Small bilateral pleural effusions.
CHEST 09/18/21- 1. No pneumothorax on either side. Appearance on today's chest x-ray was likely related to hyperlucency of parenchymal sarcoidosis.
2. Calcified mediastinal lymphadenopathy, and findings of parenchymal sarcoidosis as detailed above. No suspected acute pulmonary abnormalities appreciated.
3. Diffuse fatty infiltration of the liver
Echo:
PFT's:
Reports and relevant images were personally reviewed.
-----
Critical care time 75 mins -- this includes review of history, physical exam, medications, hemodynamic/ventilator parameters, laboratory data, imaging and discussion with house staff, pharmacy, respiratory therapy, bottle blower, and nursing.
--- NOTE | 2024-04-05 07:36 | PTCARENOTE ---
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 Patient is on propofol, fentanyl and IVF, hand off as documented in worklist. Patient is intubated, #8ETT 25cm at center of mouth/lip. AC
12/500/5/40%, saturating 98%. Inline suction had some yellow secretions, minimal oral secretions when performing oral care. Coarse breath sounds auscultated throughout. patient is sinus rhythm in 90s on monitor, right radial Massiel
transduced/leveled at phlebostatic axis. All connections secured and patent. Patient is written for NPO with NG tube at continuous suction. minimal output from NG tube. Patient has midline incision with colostomy already draining brown stool.
Neville without urimeter present, will empty q4. SCDs on. Will review orders, plan for SBT.
[2024-04-05 07:38] LABS: Absolute Neutrophils -Man Diff 6.4 10^3/uL (1.4-6.5); Band Neutrophils 20 % (0-3); Eosinophils 2 % (0-6); Lymphocytes 17 % (20-51); Monocytes 1 % (2-9); Segmented Neutrophils 60 % (42-75)
[2024-04-05 07:39] LABS: Anisocytosis 1+; Hypochromasia 1+; Normal RBC Morphology No; Platelets Checked Yes; Total Cells Counted 100
[2024-04-05] MEDS: PROTONIX IV 40 MG IV ×2 (07:40→19:13)
[2024-04-05] MEDS: NSS (PRESERVATIVE FREE) 10 ML IV ×2 (07:41→19:13)
--- NOTE | 2024-04-05 09:23 | PTCARENOTE ---
speech in to see patient for MOCA assessment. patient was very slow to process.
--- NOTE | 2024-04-05 09:24 | WOUNDNOTE ---
WOC RN Note: Patient's LUQ stoma pink, swollen and budded with stoma bridge in place. Liquid brown stool in pouch. Ostomy appliance intact. present and instructed how to empty pouch, cut wafer and snap on pouch. Ostomy supplies (Anabell
wafer # [id number], Gely seal and Anabell pouch # [id number]) and colostomy teaching folder given. Spoke with Dr. Bermudez re: no director of orthopedics on Tuesday. Dr. Bermudez stated not to change appliance for teaching tomorrow, that Tuesday is better to change
colostomy appliance for teaching. signed [employer] secure starter ostomy kit fax authorization form. Teaching session with and patient planned Tuesday at 3pm with either director of orthopedics Lay or Latesha.
--- NOTE | 2024-04-05 10:27 | W.PN.CRS1 ---
Today's Communication / Plan
-
Wean to extubate
Continue n.p.o. with NGT to LCS
Will need further workup of colon mass once stabilized
Assessment/Plan
-
64-year-old male with PMH of bipolar (previously on lithium for many years, stopped due to kidney injury), insomnia, sarcoidosis, HLD, GERD who presents with a couple weeks of weakness, dizziness and falls at home for a couple of weeks associated
with intentional 50 pound weight loss as well as worsening constipation over a few weeks and bloating for 1-2 weeks, no n/v, urinary retention requiring thakur place; has never had a colonoscopy; noted to have a Hb 5.7 s/p pRBC x2 (repeat 7.4>7.0),
with a WBC of 14.8 and Cr of 2.4 (repeat 1.8). KUB showing possible bowel obstruction with air-fluid levels, CT showing a colonic obstruction at the descending colon with a mass concerning for cancer and appears to be invading the left kidney and
tail of the pancreas, significant distention with the proximal colon and small bowel, cecum measuring between 9 to 10 cm;
POD1 exlap, diverting loop transverse colostomy
AFVSS; NGT 400 mL brownish liquid output, UOP 990 mL
WBC 8.1, Hb 8.0 from 8.1 (s/p PRBC x 1 prior to surgery; pRBC x 4 total)
�Obstructing colon mass; elevated concern for colon cancer
�Concern for invasion into the kidney and distal pancreas, will likely need to confirm with MRI when more stabilized
�Appreciate GI; he will need flexible sigmoidoscopy with biopsy of the mass when more stabilized
�CEA 102, will need CT chest for staging when more stabilized
� Appreciate hospitalist, trip follower; wean ventilator to extubate
� Continue n.p.o. with NGT to low continuous suction
� Continue IVF
� Pain control with fentanyl infusion
�Continue Thakur, strict I/O's
Subjective Data
Subjective Data
Date of Service: April 05, 2024
No overnight events. Settings are minimal on the ventilator, on fentanyl at 75 and propofol at 25 infusions.
+ostomy function (likely overflow stool) + Thakur
Objective Data
-
Vital Signs
Temp Pulse Resp BP Pulse Ox
98.7 F 78 12 108/61 98
04/05/24 08:02 04/05/24 09:30 04/05/24 09:30 04/05/24 09:30 04/05/24 09:30
Intake & Output
04/04/24 04/05/24 04/06/24
06:59 06:59 06:59
Intake Total 250 / 250 1850.6 / 1968.4 353.4 / 353.4
Output Total 800 / 800 3140 / 3140
Balance -550 / -550 -1289.4 / -1171.6 353.4 / 353.4
Intake:
Oral fluids 0 / 0
IV fluids (Total) 1730.6 / 1848.4 353.4 / 353.4
Nss 1,000 ml @ 100 mls/hr IV . 1100 / 1200 300 / 300
Q10H LENIN Rx#:[id number]
fent 75.0 / 82.5 22.5 / 22.5
prop 55.6 / 65.9 30.9 / 30.9
IV piggybacks 120 / 120
Blood Product Amount Infused ( 250 / 250
mL)
Packed Rbc Leukoreduced Unit 250 / 250
[id number]
Output:
Liquid stool amount 350 / 350
Colostomy 350 / 350
Gastrointestinal tube output ( 1899 / 1899
Total)
[place] Sump 1899 / 1899
Urine, Thakur 800 / 800 890 / 890
Lab Results
04/05/24 03:21
04/05/24 03:21
Physical Exam
-
General: No Acute Distress and Other (Intubated and sedated)
HEENT: Grossly Normal
Abdomen: Soft, Distended (Mildly to moderately distended), Tender (Appropriately tender), No Guarding, No Rebound and Other (Ostomy pink, edematous, brown liquid stool in appliance, ostomy roxann in place)
Skin: Warm and Dry
Wound: Dressing in Place (Aquacel)
--- NOTE | 2024-04-05 12:01 | WOUNDNOTE ---
WOC RN note: Faxed signed [place] ostomy starter kit request form to [employer].
[2024-04-05 12:05] LABS: B.E. -3.8 mmol/L; HCO3 20.4 mmol/L (21-28); O2 Saturation % 98.5 % (94-98); PCO2 33 mmHg (35-48); PO2 143 mmHg (83-108)
--- NOTE | 2024-04-05 12:30 | PTCARENOTE ---
Patient has been extubated to 4L. Is very anxious, already able to converse. Denies any pain.
--- NOTE | 2024-04-05 13:13 | PN.CDI ---
CDI
- -
CDI:
Physician Documentation Request
Admit Date: 04/02/24 18:47
Dear Doctor Soco,
Patient admitted with large colon mass.
04/03 Nutrition note, 'Pt meets criteria for moderate protein calorie malnutrition of social and environmental circumstances with >20% wt loss x 1yr, poor intake <75% >3months, mild loss subcutaneous fat (triceps), mild loss muscle (quad,calf).
Please provide in your progress note the diagnosis associated with the above findings and your assessment:
Moderate protein calorie malnutrition
Mild protein calorie malnutrition
Other
[place] Criteria ([facility] Hospitalist 2017)
2 or more criteria must be present for either
non severe or severe malnutrition
Note that the criteria differs related to the
presence of an acute or chronic illness
Acute Illness Chronic Illness
Energy Intake Non Severe: <75% for >7 days Non Severe: <75% for >1 month
Severe: <50% for >5 days Severe: <75% for >1 month
Weight Loss Non Severe: 1-2% over 1 week Non Severe: 5% over 1 month
5% over 1 month 7.5% over 3 months
7.5% over 3 months 10% over 6 months
1 year N/A 20% over 1 year
Severe: >2% over 1 week Severe: >5% over 1 month
>5% over 1 month >7.5% over 3 months
>7.5% over 3 months >10% over 6 months
1 year N/A >20% over 1 year
Body Fat Non Severe: Mild Decrease Non Severe: Mild Loss
Severe: Moderate Decrease Severe: Severe Loss
Muscle Mass Non Severe: Mild Decrease Non Severe: Mild Loss
Severe: Moderate Decrease Severe: Severe Loss
Fluid Accumulation Non Severe: Mild Accumulation Non Severe: Mild Accumulation
Severe: Moderate to severe Severe: Moderate to severe
accumulation accumulation
Reduced Butt Trimmer Strength Non Severe: N/A Non Severe: N/A
Severe: Measurably reduced Severe: Measurably reduced
Use of terms such as suspected, likely, concern for, or probable (associated with a specific diagnosis that is being evaluated, monitored, or treated as if it exists) are acceptable and can be coded in the inpatient setting, when documented at the
time of discharge.
Thank you,
Colleen FAM,RN,CCDS
CDI Specialist
Available via [place] text
Please use your independent medical judgment in providing your response.
[2024-04-05] MEDS: NSS (PRESERVATIVE FREE) 0.25 ML IV ×2 (15:11→19:13)
[2024-04-05] MEDS: ATIVAN 0.5 MG IV ×2 (15:12→19:13)
--- NOTE | 2024-04-05 16:08 | CM ---
CM following re: discharge planning.
Discussed in Rounds, reviewed pt's chart, met with pt and pt's older brother at bedside. Per Rounds meeting, pt is POD1 exlap, diverting loop transverse colostomy, intubated yesterday, extubated today. Per surgery, pt remains Continue NPO with NGT
to LCS and will need further workup of colon mass once stabilized .
PT and OT evaluation noted - SNF level of care recommended. Both pt and his brother are aware and stated they are not ready to discuss it today and pt is requested to discuss it when appropriate.
D/C plan: most likely SNF when medically stable.
CM will follow with discharge plan updates as hospitalization progresses
--- NOTE | 2024-04-05 16:42 | WOUNDNOTE ---
WOC RN note: t/c Spoke with Viviana from [employer] and ordered a [employer] ostomy secure starter kit.
--- NOTE | 2024-04-05 17:26 | W.PN.HOSP.TC ---
Addendum entered and electronically signed by Munir Malave MD 04/05/24 21:46:
Attending Addendum-
I saw and evaluated the patient. I reviewed the resident�s note and agree with findings and plan as documented in the resident�s note. Patient was get intubated after OR last PM. Wants tube out. Able to communicate with hand and nodding head. Full
12 point ROS reviewed and negative except as documented Exam- vitals reviewed in chart GEN-intubated NG tube in place draining brown fluid, heart regular tachycardic lungs scattered crackles throughout abd ostomy present with brown liquid stool --
thakur in place draining concentrated yellow urine Ext- No edema b/l a line in place RUE Plan:
# Large Colonic Mass/Acute on Chronic Blood Loss Anemia/GI Bleed-
- GI input appreciated
- CR surg input appreciated
- CT A/P 04/03-reviewed with rads- colonic obstruction at the level of the superior aspect of the descending colon. mass with associated colonic wall thickening, mass extends to the tail of the pancreas and the adjacent left kidney, and findings
suggest invasion of these structures.
Significant distention of the colon with air and fluid extending to the level of obstruction. There is also significant distention of small bowel loops with air, fluid, and contrast, with administered oral contrast extending to the mid small bowel.
- 04/04-Exploratory laparotomy, takedown of splenic flexure, loop transverse colostomy, partial omentectomy, TAP block
- cont NPO IVF
- IV PPI BID
- transfused 4 units prbc thus far
- trend CBC daily
- CEA elevated - for MRI/CT staging when more stable
# Sinus tachycardia
- cont IVF
- likely from dehydration/hypovolemia
# Acute Hypoxemic Respiratory Failure
- mechanically ventilated
- VS reviewed
- for SBT and extubation today
- appreciate CC input
# CANELO
- mildly worse 1.8
- post renal from colonic obstruction and dilation
- renal US reviewed-with distended bladder no hydro
- cont Thakur
- repeat BMP in am
- cont IVF
# Leukocytosis
- resolved
- blood cx NGTD
- cont to monitor
- repeat CBC in am
# Moderate PCM-
- nutrition consult
- encourage PO when able
- may need TF
# Hypermagnesemia
- resolved
- likely from MOM use and renal failure
- repeat Mg in am
# Insomnia
- chronic Ambien use
- continue
# Peripheral Neuropathy
- hold gabapentin
# Bipolar
- cont zyprexa
# Sarcoidosis
- f/u as OP
- stable
DVT proph- SCDs
Code- Full
total time spent coordinating care, review of plan of care with resident, review of records, med rec, consults, notes, labs, rads, d/w nursing radiology GI CR and POA/family - 64 mins
Original Note:
Today's Communication/Plan
-
SBT trial today
IV fluids
NG tube
Assessment / Plan
Assessment / Plan
Large Colonic Mass/Acute on Chronic Blood Loss Anemia/GI Bleed-
- tachycardiac, hemoglobin stable at 8.0 sp 3 units of PRBCs
- CT abd/pelvis 04/03 showed colonic obstruction at the level of the superior aspect of the descending colon with associated colonic wall thickening, mass extends to the tail of the pancreas and the adjacent left kidney, and findings suggest
invasion of these structures.
Significant distention of the colon with air and fluid extending to the level of obstruction. There is also significant distention of small bowel loops with air, fluid, and contrast, with administered oral contrast extending to the mid small bowel.
- Exploratory laparotomy, takedown of splenic flexure, loop transverse colostomy, partial omentectomy, TAP block on 04/04
- Colorectal surgery on board: sp Exploratory laparotomy, takedown of splenic flexure, loop transverse colostomy, partial omentectomy, TAP block
- GI on board
- NG tube in place, continue
- cont NPO and fluids
- PPI PPx
- trend CBC daily
# Sinus tachycardia
- cont IVF
- likely multifactorial: hypovolemia/pain/discomfort
# Acute Hypoxemic Respiratory Failure
- On ventilator
-Possible aspiration initially
-Patient intubated status post ex lap to protect airway
-SBT trial today, wean off O2 as tolerated
# CANELO
- Cr 1.8
- renal US reviewed-with distended bladder no hydro
- post renal from colonic obstruction and dilation, s/p surgery
- cont Thakur
- repeat BMP in am
- cont IVF
# Leukocytosis
- resolved
- blood cx showed no growth in 48
- cont to monitor
- repeat CBC in am
# Hypermagnesemia
-Resolving
- likely from MOM use and renal failure
- repeat Mg in am
# Insomnia
- chronic Ambien use
- continue
# Peripheral Neuropathy
- hold gabapentin
# Bipolar
- cont zyprexa
# Sarcoidosis
- f/u as OP
- stable
DVT proph- SCDs
Code- Full
Anticipated Discharge: > 48 hours
Subjective/Interval History
-
Date of Service: April 05, 2024
Objective Data
-
Labs:
Laboratory Results
04/05/24
11:44
HCO3 20.4 L
Vital Signs:
Vital Signs
Temp Pulse Resp BP Pulse Ox
98.8 F 113 18 116/70 97
04/05/24 15:12 04/05/24 11:58 04/05/24 11:58 04/05/24 11:00 04/05/24 12:18
I&O
04/04/24 04/05/24 04/06/24
06:59 06:59 06:59
Intake Total 250 / 250 1850.6 / 1968.4 1171.2 / 1171.2
Output Total 800 / 800 3140 / 3140 525 / 525
Balance -550 / -550 -1289.4 / -1171.6 646.2 / 646.2
Review of Systems
-
Unable to obtain full review of systems at this time due to: Patient Intubation
Physical Exam
-
General: Intubated and Appears Chronically Ill
Respiratory: Clear to Auscultation
Cardiac: Regular Rhythm, S1/S2 and Calf Tenderness; Negative Murmur or Rub
GI: Tender and Distended
Genito-urinary: Clear Urine and Thakur
Musculoskeletal: No Clubbing, No Cyanosis and No Edema
Skin: Warm and Dry
Neuro: Awake, Alert and Oriented
Psych: Agitated
[2024-04-05] MEDS: DILAUDID 0.25 MG IV (19:13)
--- NOTE | 2024-04-05 19:17 | W.PN.GI.CBS2 ---
Today's Communication / Plan
-
-Status post ex lap and diverting loop transverse colostomy
Elevated CEA at 102
Noted plan for further staging of colonic mass lesion with MRI/CT scan when stable
We will be available for flexible sigmoidoscopy prior to discharge
Please call us back when patient is optimized to undergo flexible sigmoidoscopy
Assessment / Plan
-
Pt is a 64yo with hx HTN, hypercholesterolemia, sarcoidosis, insomnia with onset of fatigue, falls, dizziness and lightheadedness over a few weeks. Per patient he also admits to recent intentional wt loss of 50 lbs over last 6 months. On
admission hbg 5.7 with MCV 65.3, WBC 14.8, Platelets 681, creat 2.4, 10.5, mag 3.2. Imaging with obstruction series with chronic lung changes no free air but distended SB loops with concern for partial or intermittent Small bowel obstruction.
Renal US with concern for severe urinary bladder distention with placement of thakur for 600ml output. Pt also with some complaints of constipation with enema given on admission for only small stool.
04/03/24 CT A/p oral only
There is colonic obstruction at the level of the superior aspect of the descending colon. 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 This mass extends to
the tail of the pancreas and the adjacent left kidney, and findings suggest invasion of these structures. As a differential consideration, the mass could originate from the pancreatic tail or the left kidney, but this is felt to be less likely.
Significant distention of the colon with air and fluid extending to the level of obstruction. There is also significant distention of small bowel loops with air, fluid, and contrast, with administered oral contrast extending to the mid small bowel.
No evidence of free intraperitoneal air. No evidence for pneumatosis.
There is a small to moderate amount of free fluid within the abdomen and pelvis.
2 mm calcification the central lower pole of the left kidney, likely a nephrolith.
Small bilateral pleural effusions.
-severe microcytic anemia(iron studies not accurate done post transfusion)
-reports of intermittent black stools
-colonic distention/constipation
-abnormal CT with concern for colonic obstruction descending colon with mass with extension to tail of pancreas and left kidney
-concern for increased O2 demand 04/04 ? aspiration with vomiting
-recent weight loss- intentional per patient
-bladder distention with placement of thakur catheter
-CANELO
-recent falls/weakness on admission
-thrombocytosis
-leukocytosis
other medical problems:
-HTN
-hypercholesterolemia
-sarcoidosis
-insomnia
CT scan of the abdomen pelvis 04/03-There is colonic obstruction at the level of the superior aspect of the descending colon. In this region, there is a mass with associated colonic wall thickening, and this very likely represents an obstructing
colonic carcinoma. This mass extends to the tail of the pancreas and the adjacent left kidney, and findings suggest invasion of these structures. As a differential consideration, the mass could originate from the pancreatic tail or the left kidney,
but this is felt to be less likely.
Significant distention of the colon with air and fluid extending to the level of obstruction. There is also significant distention of small bowel loops with air, fluid, and contrast, with administered oral contrast extending to the mid small bowel.
-Status post ex lap and diverting loop transverse colostomy
Elevated CEA at 102
Noted plan for further staging of colon mass lesion with MRI/CT scan when stable
We will be available for flexible sigmoidoscopy prior to discharge
Please call us back when patient is optimized to undergo flexible sigmoidoscopy
Subjective
Subjective
Date of Service: April 05, 2024
Currently postop in the ICU, no fevers
Objective
Data Reviewed
Laboratory Data:
Laboratory Results
04/05/24 03:21
04/05/24 03:21
Laboratory Results
PT 17.8 Sec (11.4-14.6) H 04/05/24 03:53
INR 1.45 04/05/24 03:53
APTT 30.8 Sec (23.4-35.0) 04/04/24 19:10
Phosphorus 3.4 mg/dl (2.5-4.5) 04/04/24 19:10
Magnesium 2.9 mg/dl (1.6-2.3) H 04/05/24 03:21
Total Bilirubin 1.2 mg/dl (0.2-1.3) 04/05/24 03:21
AST 16 U/L (17-59) L 04/05/24 03:21
ALT < 10 U/L (0-50) 04/05/24 03:21
Alkaline Phosphatase 62 U/L (38-126) 04/05/24 03:21
Vital Signs and I&O:
Vital Signs
Temp Pulse Resp BP Pulse Ox
98.8 F 100 20 127/63 99
04/05/24 15:12 04/05/24 18:30 04/05/24 18:30 04/05/24 18:30 04/05/24 18:30
I&O
04/04/24 04/05/24 04/06/24
06:59 06:59 06:59
Intake Total 250 / 250 1850.6 / 1968.4 1271.2 / 1271.2
Output Total 800 / 800 3140 / 3140 525 / 525
Balance -550 / -550 -1289.4 / -1171.6 746.2 / 746.2
--- NOTE | 2024-04-05 19:51 | PTCARENOTE ---
rec'd patient. assessment as documented. oriented x3, admits to feeling anxious. c/o severe pain in abdomen with coughing. PRN ativan and dilaudid given. SR/ST on monitor. right radial arterial line in place, leveled and zeroed. IVF infusing through
PIV. on 4L NC, denies SOB. occasional weak cough, educated on splinting to brace pain from cough. remains NPO. NGT to low cont. sxn. midline incision dressing C/D/I. colostomy with red, budded stoma, draining liquid brown stool. thakur draining
yellow urine. family updated at bedside. call [facility] within reach, care ongoing.
[2024-04-06] VITALS (21 sets, daily range): BP systolic 117–155; BP diastolic 64–80; BMI 25.1
--- NOTE | 2024-04-06 00:11 | PTCARENOTE ---
systems reviewed. pt resting, arouses to voice. repositioned with assistance. call [facility] within reach, care ongoing.
[2024-04-06] MEDS: DILAUDID 0.25 MG IV ×2 (01:59→07:20)
[2024-04-06] MEDS: ATIVAN 0.5 MG IV ×2 (02:00→07:20)
[2024-04-06] MEDS: UNASYN IV ×3 (03:48→15:37)
[2024-04-06 04:00] LABS: Hematocrit 23.5 % (39.0-52.0); Hemoglobin 7.6 g/dL (13.0-18.0); Mean Corp Hgb Conc. 32.3 g/dL (33.0-37.0); Mean Corpuscular Hgb 23.3 pg (27.0-31.0); Mean Corpuscular Volume 72.1 fL (80.0-94.0); Mean Platelet Volume 8.2 fL (7.4-10.4); Platelet Count 476 10^3/uL (130-400); Red Blood Cell Count 3.26 10^6/uL (4.70-6.10); Red Cell Dist. Width 23.9 % (11.5-14.5); White Blood Cell Count 6.2 10^3/uL (4.8-10.8)
[2024-04-06 04:26] LABS: Blood Urea Nitrogen 34 mg/dl (9-20); Calcium 7.4 mg/dl (8.4-10.2); Carbon Dioxide 21 mmol/L (22-30); Chloride 111 mmol/L (98-107); Estimated Creatinine Clearance 45 ml/min; Glucose 71 mg/dl (70-99); Magnesium 2.6 mg/dl (1.6-2.3); Potassium 4.1 mmol/L (3.5-5.1); Sodium 139 mmol/L (135-145); eGFR 51.67
--- NOTE | 2024-04-06 05:39 | PTCARENOTE ---
pt reassessed. denies need for PRN pain meds at this time. CHG bath. AM labs sent. care ongoing.
[2024-04-06] MEDS: FLOMAX TUBE (07:01)
--- NOTE | 2024-04-06 07:13 | W.PN.HOSP.TC ---
Addendum entered and electronically signed by Munir Malave MD 04/06/24 22:58:
Attending Addendum-
I saw and evaluated the patient. I reviewed the resident�s note and agree with findings and plan as documented in the resident�s note. 'Can i have some more ice chips?' Feels dehydrated. Mild abd pain. No N/V. Full 12 point ROS reviewed and
negative except as documented Exam- vitals reviewed in chart GEN-NAD NG tube in place draining brown fluid, heart regular tachycardic lungs scattered crackles throughout abd ostomy present with brown liquid stool -- thakur in place draining
concentrated yellow urine Ext- No edema b/l a line in place RUE Plan:
# Colonic Mass/Acute on Chronic Blood Loss Anemia/GI Bleed-
- GI input appreciated
- CR surg input appreciated
- CT A/P 04/03- colonic obstruction at the level of the superior aspect of the descending colon. mass with associated colonic wall thickening, mass extends to the tail of the pancreas and the adjacent left kidney, and findings suggest invasion of
these structures. Significant distention of the colon with air and fluid extending to the level of obstruction. There is also significant distention of small bowel loops with air, fluid, and contrast, with administered oral contrast extending to the
mid small bowel.
- 04/04- POD# 2 - Exploratory laparotomy, takedown of splenic flexure, loop transverse colostomy, partial omentectomy, TAP block
- cont NPO IVF - allow limited ice chips
- IV PPI BID
- transfused 4 units prbc thus far
- trend CBC daily
- CEA elevated - for MRI/CT staging when more stable
# Sinus tachycardia
- cont IVF
- likely from dehydration/hypovolemia
# Acute Hypoxemic Respiratory Failure
- initial aspiration event
- Intub 04/04, Extub 04/05 - POD#1
- VS reviewed
- cont O2-4L
- wean as tolerated
- DC unasyn
# CANELO
- mildly improved 1.5
- post renal from colonic obstruction and dilation
- renal US reviewed-with distended bladder no hydro
- cont Thakur for now
- repeat BMP in am
- cont IVF
# Urinary Retention
- DC thakur in am
- encourge ambulation
# Leukocytosis
- resolved
- blood cx NGTD
- cont to monitor
- repeat CBC in am
# Moderate PCM-
- nutrition consult
- may need TF
# Hypermagnesemia
- resolved
- likely from MOM use and renal failure
- repeat Mg in am
# Insomnia
- chronic Ambien use
- continue
# Peripheral Neuropathy
- hold gabapentin
# Bipolar
- cont zyprexa
# Sarcoidosis
- f/u as OP
- stable
DVT proph- heparin
Code- Full
total time spent coordinating care, review of plan of care with resident, review of records, med rec, consults, notes, labs, rads, d/w nursing and CC - 59 mins
Original Note:
Today's Communication/Plan
-
NPO + NGT
Start DVT PPx with Lovenox, daily CBC
DC Thakur tomorrow
Assessment / Plan
Assessment / Plan
Large Colonic Mass/Acute on Chronic Blood Loss Anemia/GI Bleed-
- hemoglobin at 7.6 sp 3 units of PRBCs
- CT abd/pelvis 04/03 showed colonic obstruction at the level of the superior aspect of the descending colon with associated colonic wall thickening, mass extends to the tail of the pancreas and the adjacent left kidney, and findings suggest
invasion of these structures.
Significant distention of the colon with air and fluid extending to the level of obstruction. There is also significant distention of small bowel loops with air, fluid, and contrast, with administered oral contrast extending to the mid small bowel.
- Exploratory laparotomy, takedown of splenic flexure, loop transverse colostomy, partial omentectomy, TAP block on 04/04
- Colorectal surgery on board: sp Exploratory laparotomy, takedown of splenic flexure, loop transverse colostomy, partial omentectomy, TAP block
- GI on board
- NG tube in place, continue
- cont NPO and IV fluids
- PPI PPx
- Pain management
- trend CBC daily; monitor hemoglobin closely
- CEA 102 - pending pathology results post-op, Gastroenterology - flexible sigmoidoscopy.
Microcytic anemia
Sp 3 units of PRBCs
- Monitor CBC
# Sinus tachycardia
- cont IVF
- likely multifactorial: hypovolemia/dehydration
# Acute Hypoxemic Respiratory Failure
-Extubated 04/05, 4L Nasal cannula, spo2 99%
- ABG improving
- wean off O2 as tolerated
# CANELO
Improving
- Cr 1.5 today
- renal US reviewed-with distended bladder no hydro
- post renal from colonic obstruction and dilation, s/p surgery
- cont Thakur, Thakur removal tomorrow
- repeat BMP in am
- cont IVF
# Leukocytosis
- resolved
- blood cx showed no growth in 48 hours
- cont to monitor
- repeat CBC in am
# Hypermagnesemia
-Resolving
- likely from MOM use and renal failure
- Repeat Mg in AM
# Insomnia
- chronic Ambien use
- continue
# Peripheral Neuropathy
- hold gabapentin
#Bipolar disorder
- cont zyprexa
#Sarcoidosis
- f/u as OP
- stable
DVT proph- Lovenox
Code- Full
Anticipated Discharge: > 48 hours
Subjective/Interval History
-
Date of Service: April 06, 2024
Objective Data
-
Labs:
Laboratory Results
04/06/24
03:53
WBC 6.2
Hgb 7.6 L
Hct 23.5 L
Plt Count 476 H
Sodium 139
Potassium 4.1
Chloride 111 H
Carbon Dioxide 21 L
BUN 34 H
Creatinine 1.5 H
Glucose 71
Calcium 7.4 L
Vital Signs:
Vital Signs
Temp Pulse Resp BP Pulse Ox
98.5 F 92 16 122/66 99
04/06/24 04:39 04/06/24 06:00 04/06/24 06:00 04/06/24 06:00 04/06/24 06:00
I&O
04/05/24 04/06/24 04/07/24
06:59 06:59 06:59
Intake Total 1850.6 / 1968.4 2231.2 / 2231.2
Output Total 3140 / 3140 1575 / 1575
Balance -1289.4 / -1171.6 656.2 / 656.2
Review of Systems
-
History Source: Patient
Constitutional: Reports No Symptoms
Respiratory: Reports Cough
Cardiac: Denies Chest Pain
Abdomen/GI: Reports Abdominal Pain; Denies Nausea
Genitourinary: Reports No Symptoms
Physical Exam
-
General: Appears Chronically Ill
HEENT: Normocephalic, Atraumatic, Oxygen (O2 nasal cannula 4L) and Other (Dry mucous membranes)
Respiratory: Clear to Auscultation; Negative Wheezes or Rales
Cardiac: Regular Rhythm and S1/S2; Negative Murmur, Rub or Calf Tenderness
GI: Normal Bowel Sounds, Tender and Distended
Genito-urinary: Clear Urine and Thakur
Musculoskeletal: No Clubbing, No Cyanosis and No Edema
Skin: Warm and Dry; Negative Rash, Ulcers or Jaundice
Neuro: Awake, Alert and Oriented
Psych: Calm
[2024-04-06] MEDS: NSS (PRESERVATIVE FREE) 10 ML IV ×2 (07:19→20:14)
[2024-04-06] MEDS: NSS (PRESERVATIVE FREE) 0.25 ML IV (07:19)
[2024-04-06] MEDS: NSS 1000 IV (07:20)
[2024-04-06] MEDS: PROTONIX IV 40 MG IV ×2 (07:20→20:14)
--- NOTE | 2024-04-06 08:30 | PTCARENOTE ---
received patient from shuttle fixer. assessment unchanged from prior shift. patient is somnolent but arouses easily. Is AAOx3, remains very anxious. asked for Ativan and Dilaudid this morning for intermittent pain in abdomen when coughing 8:10.
patient is able to move all extremities but generally weak. is on 4L NC saturation 100%. shallow breath sounds, gaurding for pain with deep breaths. Sinus rhythm in 90s on monitor, scds for dvt prophalaxis. Maintenance fluids running at 75ml/hr.
Tolerating NG to low continuous suction. Colostomy draining liquid stool, thakur remains for urinary retention. will review orders, call acuna within reach, able to make needs known.
--- NOTE | 2024-04-06 08:50 | W.PN.INTV ---
Today's Communication / Plan
Recommendations
Up OOB as tolerated
DC thakur tomorrow
NGT as per colorectal surgery
NPPO besides ice chips
Trend H/H and TRX if Hb<7, plt<50k given recent surgery
DC ABx
Patient stable for transfer out of ICU to telemetry. Process Automation Engineer/Pulmonary service will now sign off. Please reconsult if there are any additional questions/concerns, or if patient's respiratory status deteriorates.
Assessment
-
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
Underwent obstruction series demonstrating partial versus complete small bowel obstruction. Admitted 04/02/2024. Underwent colonic resection with loop colostomy with colorectal surgery 04/04/24 and postoperatively transferred to ICU intubated and on
mechanical ventilation.
Impression:
Descending colonic mass (5.7cm) with obstruction s/p exploratory laparotomy, takedown of splenic flexure, loop transverse colostomy, partial omentectomy, TAP block - OR date: 04/04/24
Acute partial vs comp. SBO due to colon mass s/p NGT placement
Acute urinary retention with colon mass invasion into L-kidney
GIB
Acute blood loss anemia
CANELO
Leukocytosis
Thrombocytosis
Weight loss, decreased PO intake
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
Sarcoidosis with calcified left hilar and suprahilar adenopathy and mild chronic lung changes
Hypercholesterolemia
HTN
Bipolar disorder
Insomnia
GERD
Ankle surgery in 20s
Former Smoker (quit 40 years ago)
Former alcohol (quit 6 months ago with hx 4-5 beers daily)
Plan
No current signs of metabolic encephalopathy or MS changes/following commands
Psychiatric history noted above including bipolar disorder/tremors from lithium
Denies pain at this time.
Pain/sedation: PRN
Hemodynamically stable, not requiring pressors.
Cardiac history reviewed--HTN, HLD
No prior ECHO for review
Resume home meds
Intubated perioperatively, extubated on 04/05
Prior history of lung disease: former smoker, no PFTs for review
Supplemental O2 as indicated to maintain sats > 89%
CXR/CT reviewed indicating changes related to sarcoid, mild ILD/chronic LN calcifications
Not on treatment for sarcoid
Colon mass s/p resection, now with diverting loop transverse colostomy
Defer starting p.o. diet to colorectal surgery as well as removal of NG tube
They are okay with periodic ice no more than 1 cup every 4 hours
For now keep NPO for food
Aspiration precautions, HOB > 30 degrees
CANELO present, creat 2.4 improving (1.5 today)
Unknown baseline, no history of renal disease
Remove thakur tomorrow
Follow urine output, critical I/Os
Replete electrolytes as needed
No signs/symptoms suspicious for infectious etiology at this time
Currently on unasyn - will DC as his Cx have been negative and he remains afebrile and is non-toxic appearing
Follow fever trend, WBC count
CBC reviewed, anemia on presentation, Hb 5, now 7.6
DVT prophylaxis as assessed based on risk, including mechanical SCDs
Can transfuse if indicated for Hb <7, plt < 50
Transfusions: 3 units pRBC
INR 1.45
Follow serial labs
No prior h/o diabetes or thyroid disease
Monitor accuchecks PRN/SS coverage if needed
Patient stable for transfer out of ICU to telemetry. Process Automation Engineer/Pulmonary service will now sign off. Thank you for allowing us to be involved in the care of this patient. Please reconsult if there are any additional questions/concerns, or if
patient's respiratory status deteriorates.
Diagnostic Data
Chest X-Ray: 04/04/24- Endotracheal tube with tip in trachea approximately 3-4 cm above the alina. Nasogastric tube tip in stomach. No findings to confirm pneumothorax. Bilateral predominantly mid lung nonspecific parenchymal opacity.
04/02/24- Chronic lung changes, consistent with the history of sarcoidosis. Poor inspiratory effort with low lung volumes. No definite superimposed acute airspace process. No free air.
CT Scan: AP 04/03/24- There is colonic obstruction at the level of the superior aspect of the descending colon. 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
This mass extends to the tail of the pancreas and the adjacent left kidney, and findings suggest invasion of these structures. As a differential consideration, the mass could originate from the pancreatic tail or the left kidney, but this is felt to
be less likely.
Significant distention of the colon with air and fluid extending to the level of obstruction. There is also significant distention of small bowel loops with air, fluid, and contrast, with administered oral contrast extending to the mid small bowel.
No evidence of free intraperitoneal air. No evidence for pneumatosis. There is a small to moderate amount of free fluid within the abdomen and pelvis.
2 mm calcification the central lower pole of the left kidney, likely a nephrolith. Small bilateral pleural effusions.
CHEST 09/18/21- 1. No pneumothorax on either side. Appearance on today's chest x-ray was likely related to hyperlucency of parenchymal sarcoidosis.
2. Calcified mediastinal lymphadenopathy, and findings of parenchymal sarcoidosis as detailed above. No suspected acute pulmonary abnormalities appreciated.
3. Diffuse fatty infiltration of the liver
Echo:
PFT's:
Reports and relevant images were personally reviewed.
-----
Total time spent today was 55 minutes for this encounter. Time includes reviewing laboratory test/imaging results, reviewing pertinent medical records, obtaining and reviewing medical history, performing an appropriate exam, ordering medications,
tests and procedures. Time also includes documentation of this encounter, coordinating patient care and communicating with other healthcare professionals. Total time does not include separately billed tests performed on this date of service.
Subjective Dataa
Subjective Data
Date of Service:
Date of Service: April 06, 2024
Chief Complaint: Process Automation Engineer Follow Up
Subjective:
Patient seen and evaluated this morning. No events reported from overnight. NG to suction. On 4L/min. He has some abdominal discomfort from his recent surgery, but otherwise is doing well. Denies fevers, chills, shortness of breath.
Review of Systems
General: Other (Negative unless mentioned above)
Objective Data
Data Reviewed
Vital Signs / I&O / Oxygen:
Vital Signs
Temp Pulse Resp BP Pulse Ox
98.1 F 100 22 120/66 99
04/06/24 07:52 04/06/24 08:00 04/06/24 08:00 04/06/24 08:00 04/06/24 08:00
Intake and Output
04/05/24 04/06/24 04/07/24
06:59 06:59 06:59
Intake Total 1850.6 / 1968.4 2231.2 / 2306.2 150 / 150
Output Total 3140 / 3140 1575 / 1575
Balance -1289.4 / -1171.6 656.2 / 731.2 150 / 150
SaO2 [A/C] 99
SaO2 99
Nasal Cannula flow liters per 4
minute
Physical Exam
General: Respiratory Distress (negative) and Comfortable
HEENT: Normocephalic and Anicteric
Cardiovascular: S1-S2 and Peripheral Edema (Negative)
Respiratory: Wheeze (negative), Crackles (Bibasilar), Rhonchi (negative) and Non-Labored Respirations
GI: Soft, Non Distended, Tender (near incision in midline of abdomen), NG Tube and Other (Colostomy seen with pink appearing colon tissue seen in colostomy bag)
Neurology: AO x 3 and Tremors (negative)
Skin: Warm and Dry
Labs/Micro/Reports
Lab Data
04/06/24 03:53
04/06/24 03:53
Laboratory Results
04/05/24
11:44
pH 7.40
pCO2 33 L
pO2 143 H
HCO3 20.4 L
O2 Delivery Level
Microbiology
04/02/24 19:55 Blood/Venous Blood Culture - Preliminary
No Growth in 72 hours- Final report to follow
04/02/24 19:45 Blood/Venous Blood Culture - Preliminary
No Growth in 72 hours- Final report to follow
[2024-04-06] MEDS: OFIRMEV 100 IV (09:16)
[2024-04-06] MEDS: DILAUDID 0.5 MG IV (09:22)
--- NOTE | 2024-04-06 11:44 | W.PN.CRS1 ---
Addendum entered and electronically signed by Heber Bermudez MD 04/06/24 11:54:
Error in note below: ok for dvt ppx with 'subQ heparin', NOT lovenox (due to CANELO)
Original Note:
Today's Communication / Plan
-
Continue n.p.o. with NGT; okay for periodic ice (no more than 1 cup every 4 hrs)
Start DVT PPx with Lovenox, daily CBC
DC Thakur tomorrow
Assessment/Plan
-
64-year-old male with PMH of bipolar (previously on lithium for many years, stopped due to kidney injury), insomnia, sarcoidosis, HLD, GERD who presents with a couple weeks of weakness, dizziness and falls at home for a couple of weeks associated
with intentional 50 pound weight loss as well as worsening constipation over a few weeks and bloating for 1-2 weeks, no n/v, urinary retention requiring thakur place; has never had a colonoscopy; noted to have a Hb 5.7 s/p pRBC x2 (repeat 7.4>7.0),
with a WBC of 14.8 and Cr of 2.4 (repeat 1.8). KUB showing possible bowel obstruction with air-fluid levels, CT showing a colonic obstruction at the descending colon with a mass concerning for cancer and appears to be invading the left kidney and
tail of the pancreas, significant distention with the proximal colon and small bowel, cecum measuring between 9 to 10 cm;
POD2 exlap, diverting loop transverse colostomy; kept intubated POD 0 as precaution for recent possible aspiration, extubated POD1
AFVSS; NGT 200 mL light brownish liquid output, UOP 1.4L
WBC 6.2 from 8.1, Hb 7.6 from 8.0 (pRBC x 4 total)
�Obstructing colon mass; elevated concern for colon cancer
�Concern for invasion into the kidney and distal pancreas, will likely need to confirm with MRI when more stabilized
�Appreciate GI; he will need flexible sigmoidoscopy with biopsy of the mass when more stabilized; need to call GI back when patient ready
�CEA 102, will need CT chest for staging when more stabilized
� Appreciate hospitalist, flight control specialist
� Continue n.p.o. with NGT to low continuous suction; ok for ice chips (no more than 1 cup every 4 hrs)
� Continue IVF
� Start Lovenox for DVT PPx, trend CBC daily; from CRS standpoint, transfuse if Hb less than 7.0
� Pain control with dilaudid 0.5/1.0mg PRN
�Continue Thakur, strict I/O's, plan to remove tomorrow
�Continue IV Unasyn for possible aspiration pneumonia
Subjective Data
Subjective Data
No overnight events. He was extubated yesterday
Pain controlled.
Denies nausea/vomiting. Currently n.p.o. with NGT.
-ostomy function + Thakur
Objective Data
-
Vital Signs
Temp Pulse Resp BP Pulse Ox
98.8 F 96 15 128/65 99
04/06/24 11:19 04/06/24 10:00 04/06/24 10:00 04/06/24 10:00 04/06/24 10:00
Intake & Output
04/05/24 04/06/24 04/07/24
06:59 06:59 06:59
Intake Total 1850.6 / 1968.4 2231.2 / 2306.2 375 / 375
Output Total 3140 / 3140 1575 / 1575 450 / 450
Balance -1289.4 / -1171.6 656.2 / 731.2 -75 / -75
Intake:
Oral fluids 0 / 0
IV fluids (Total) 1730.6 / 1848.4 2171.2 / 2246.2 375 / 375
Nss 1,000 ml @ 100 mls/hr IV . 1100 / 1200 2100 / 2100
Q10H [facility] Rx#:[id number]
Nss 1,000 ml @ 75 mls/hr IV . 375 / 375
[id number] [facility] Rx#:[id number]
fent 75.0 / 82.5 30.0 / 30.0
prop 55.6 / 65.9 41.2 / 41.2
IV piggybacks 120 / 120 60 / 60
Output:
Liquid stool amount 350 / 350
Colostomy 350 / 350
Gastrointestinal tube output ( 1900 / 1900 200 / 200
Total)
[place] Sump 1900 / 1900 200 / 200
Urine, Thakur 890 / 890 1375 / 1375 450 / 450
Lab Results
04/06/24 03:53
04/06/24 03:53
Physical Exam
-
General: No Acute Distress and AOx3
HEENT: Grossly Normal
Abdomen: Soft, Distended (Mildly distended), Tender (Appropriately tender), No Guarding, No Rebound and Other (Ostomy pink, very edematous but healthy, no evidence of prolapse or ischemia)
Skin: Warm and Other (Moist)
Wound: No Signs of Infection and Dressing in Place (Aquacel)
--- NOTE | 2024-04-06 13:40 | CM ---
CM following re: discharge planning.
Discussed in Rounds, reviewed pt's chart, met with pt. Per Rounds meeting, pt is POD# 2 exlap, diverting loop transverse colostomy, Continue n.p.o. with NGT.
PT and OT evaluation noted - SNF level of care recommended. Pt is not ready to discuss it today and pt is requested to discuss it when appropriate.
D/C plan: most likely SNF when medically stable.
CM will follow with discharge plan updates as hospitalization progresses
[2024-04-06] MEDS: HEPARIN 5000 UNITS SC (15:37)
[2024-04-06] MEDS: D5/0.45%NACL 1000 IV (17:44)
--- NOTE | 2024-04-06 18:52 | PTCARENOTE ---
pt transferred from ICU to room 2121. placed on telemetry. NG tube to low continuous suction. pt oriented to room.
[2024-04-06] MEDS: DILAUDID 1 MG IV (20:37)
[2024-04-07] MEDS: HEPARIN 5000 UNITS SC ×4 (00:18→23:22)
[2024-04-07 03:16] VITALS: BP 158/81
[2024-04-07 05:27] VITALS: BMI 23.1
[2024-04-07 06:48] LABS: Hemoglobin 8.2 g/dL (13.0-18.0); Mean Corp Hgb Conc. 30.4 g/dL (33.0-37.0); Mean Corpuscular Hgb 22.8 pg (27.0-31.0); Mean Corpuscular Volume 75.2 fL (80.0-94.0); Platelet Count 467 10^3/uL (130-400); Red Blood Cell Count 3.59 10^6/uL (4.70-6.10); Red Cell Dist. Width 24.4 % (11.5-14.5); White Blood Cell Count 7.4 10^3/uL (4.8-10.8)
[2024-04-07 07:05] LABS: Blood Urea Nitrogen 25 mg/dl (9-20); Carbon Dioxide 18 mmol/L (22-30); Chloride 113 mmol/L (98-107); Estimated Creatinine Clearance 61 ml/min; Glucose 61 mg/dl (70-99); Magnesium 2.5 mg/dl (1.6-2.3); Sodium 142 mmol/L (135-145); Triglycerides 101 mg/dl (10-149); eGFR > 60.00
[2024-04-07 07:20] VITALS: BP 130/83
--- NOTE | 2024-04-07 08:00 | PTCARENOTE ---
PCT notified this RN and the overnight RN that the pt was trying to get up, put backpack on, removed telemetry pack, and disconnected NGT from suction. This RN went in and pt did not know he was in the hospital, otherwise AAO to self and time. Pt
was repositioned in bed, connected back to tele and NGT, attempted to reorient but pt was still presenting with mild forgetfulness/confusion. Bed alarm and medsitter placed in room, made aware, pt resting comfortably in bed, no new orders at this
time.
[2024-04-07] MEDS: FLOMAX 0.400000000000000022 MG TUBE (08:14)
[2024-04-07] MEDS: NSS (PRESERVATIVE FREE) 10 ML IV ×2 (08:14→20:21)
[2024-04-07] MEDS: PROTONIX IV 40 MG IV ×2 (08:14→20:20)
[2024-04-07 11:00] VITALS: BP 155/81
--- NOTE | 2024-04-07 12:19 | W.PN.HOSP.TC ---
Today's Communication/Plan
-
remove ngt as per surgery
TOV if no contraindications
ivf
wean o2
Assessment / Plan
Assessment / Plan
General: Appears Chronically Ill
HEENT: Normocephalic, Atraumatic, Oxygen (O2 nasal cannula 4L) and Other (Dry mucous membranes)
Respiratory: Clear to Auscultation; Negative Wheezes or Rales
Cardiac: Regular Rhythm and S1/S2; Negative Murmur, Rub or Calf Tenderness
GI: Normal Bowel Sounds, Tender and Distended; NG tube in place
Genito-urinary: Clear Urine and Thakur
Musculoskeletal: No Clubbing, No Cyanosis and No Edema
Skin: Warm and Dry; Negative Rash, Ulcers or Jaundice
Neuro: Awake, Alert and Oriented
Psych: Calm
Lines/Tubes: NG tube in place draining brown fluid, heart regular tachycardic lungs scattered crackles throughout abd ostomy present with brown liquid stool -- thakur in place draining concentrated yellow urine
Large Colonic Mass/Acute on Chronic Blood Loss Anemia/GI Bleed-
- CT abd/pelvis 04/03 showed colonic obstruction at the level of the superior aspect of the descending colon with associated colonic wall thickening, mass extends to the tail of the pancreas and the adjacent left kidney, and findings suggest
invasion of these structures.
Significant distention of the colon with air and fluid extending to the level of obstruction. There is also significant distention of small bowel loops with air, fluid, and contrast, with administered oral contrast extending to the mid small bowel.
-S/p Exploratory laparotomy, takedown of splenic flexure, loop transverse colostomy, partial omentectomy, TAP block
- cont NPO IVF - allow limited ice chips
- IV PPI BID
- transfused 4 units prbc thus far
- trend CBC daily
- CEA elevated - for MRI/CT staging when more stable
- CEA 102 - pending pathology results post-op, Gastroenterology - flexible sigmoidoscopy.
-DC thakur as per surgery
# Sinus tachycardia
- cont IVF
- likely multifactorial: hypovolemia/dehydration
-improving
# Acute Hypoxemic Respiratory Failure
-possible aspiration event
-Extubated 04/05, 4L Nasal cannula, spo2 99% - wean off
- dc abx
# CANELO
Improving
- renal US reviewed-with distended bladder no hydro
- post renal from colonic obstruction and dilation, s/p surgery
- cont Thakur, Thakur removal if OK by surgery
- repeat BMP in am
- cont IVF
#Urinary retention
-TOV and thakur removal if OK by surgery
# Leukocytosis
- resolved
- blood cx showed no growth in 48 hours
- cont to monitor
- monitor fever curve, wbc
# Hypermagnesemia
-Resolving
- likely from MOM use and renal failure
- Repeat Mg in AM
# Insomnia
- chronic Ambien use
- continue
# Peripheral Neuropathy
- hold gabapentin
#Bipolar disorder
- cont zyprexa
#Sarcoidosis
- f/u as OP
- stable
DVT proph- hsq
Code- Full
Anticipated Discharge: > 48 hours
Subjective/Interval History
-
Date of Service: April 07, 2024
pulled out NGT this am, delirious - now resolved
Objective Data
-
Labs:
Laboratory Results
04/07/24
05:06
WBC 7.4
Hgb 8.2 L
Hct 27.0 L
Plt Count 467 H
Sodium 142
Potassium 4.0
Chloride 113 H
Carbon Dioxide 18 L
BUN 25 H
Creatinine 1.1
Glucose 61 L
Calcium 8.0 L
Vital Signs:
Vital Signs
Temp Pulse Resp BP Pulse Ox
99.3 F 92 12 155/81 99
04/07/24 11:00 04/07/24 11:00 04/07/24 11:00 04/07/24 11:00 04/07/24 11:00
I&O
04/06/24 04/07/24 04/08/24
06:59 06:59 06:59
Intake Total 2231.2 / 2306.2 1565 / 1565
Output Total 1575 / 1575 2450 / 2450
Balance 656.2 / 731.2 -885 / -885
Review of Systems
-
History Source: Patient
Constitutional: Reports No Symptoms
Respiratory: Reports Cough
Cardiac: Denies Chest Pain
Abdomen/GI: Reports Abdominal Pain; Denies Nausea
Genitourinary: Reports No Symptoms
Data Reviewed
-
Diagnostic Radiology: Image personally visualized and interpreted and Report Reviewed by me
CT Scan: Image personally visualized and interpreted and Report Reviewed by me
Ultrasound: Report Reviewed by me
Labs: Labs Reviewed by me
[2024-04-07] MEDS: D5/0.45%NACL 1000 IV (13:57)
[2024-04-07 15:10] VITALS: BP 155/83
--- NOTE | 2024-04-07 15:54 | W.PN.GS2 ---
Addendum entered and electronically signed by Navjot Ventura MD 04/07/24 16:15:
I saw and examined the patient.
The Mosaic Technician's note was reviewed and I agree with the note.
Comment: Improving. Flatus and small brown stool in appliance. NGT output reasonable. Will start clamp trial.
Original Note:
Today's Communication / Plan
-
Clamp trial of NGT and advance to clears if NGT able to be removed
Assessment / Plan
-
64-year-old male with PMH of bipolar (previously on lithium for many years, stopped due to kidney injury), insomnia, sarcoidosis, HLD, GERD who presents with a couple weeks of weakness, dizziness and falls at home.
CT showing a colonic obstruction at the descending colon with a mass concerning for cancer and appears to be invading the left kidney and tail of the pancreas, significant distention with the proximal colon and small bowel, cecum measuring between 9
to 10 cm. Concern for invasion into the kidney and distal pancreas, will likely need to confirm with MRI when more stabilized.
Being followed additionally by primary team for CANELO and acute hypoxic respiratory failure from likely aspiration.
POD #3 exlap, diverting loop transverse colostomy; kept intubated POD 0 as precaution for recent possible aspiration, extubated POD 1. Transferred out of ICU POD#2
+flatus from stoma, low NGT outputs (clear)
AFVSS
Labs stable
- Clamp trial of NGT, advance to clears if tolerates
� Continue IVF
� Appreciate GI; he will need flexible sigmoidoscopy with biopsy of the mass when more stabilized post op; need to call GI back when patient ready.
� CEA 102, will need eventual CT chest for staging as well as MRI given concern for invasion into kidney/pancreas
� Appreciate hospitalist, school admissions representative
- IV protonix for GI ppx
� Continue Heparin sq for DVT PPX
� Pain control with dilaudid 0.5/1.0mg PRN
� D/C thakur in AM for voiding trial
� ABX as per primary team
Subjective Data
-
Date of Service: April 07, 2024
Patient seen and examined at bedside with Dr. Ventura. Family at bedside. Denies n/v. Passing flatus into appliance. Incisional pain with cough, otherwise denies pain.
Objective Data
-
Intake and Output
04/06/24 04/07/24 04/08/24
06:59 06:59 06:59
Intake Total 2231.2 / 2306.2 1565 / 1565
Output Total 1575 / 1575 2450 / 2450
Balance 656.2 / 731.2 -885 / -885
Intake:
IV fluids (Total) 2171.2 / 2246.2 1475 / 1475
D5/0.45%NaCl 1,000 ml @ 50 mls/ 50 / 50
hr IV .Q20H [facility] Rx#:[id number]
Nss 1,000 ml @ 100 mls/hr IV . 2100 / 2100
Q10H [facility] Rx#:[id number]
Nss 1,000 ml @ 75 mls/hr IV . 825 / 825
[id number] [facility] Rx#:[id number]
fent 30.0 / 30.0
prop 41.2 / 41.2
IV piggybacks 60 / 60
Amount instilled into GI Tube ( 90 / 90
Total)
[place] Sump 90 / 90
Output:
Liquid stool amount
Colostomy
Gastrointestinal tube output ( 200 / 200 275 / 275
Total)
[place] Sump 200 / 200 275 / 275
Urine, Thakur 1375 / 1375 2150 / 2150
Vital Signs
Temp Pulse Resp BP Pulse Ox
98.6 F 100 14 155/83 97
04/07/24 15:10 04/07/24 15:10 04/07/24 15:10 04/07/24 15:10 04/07/24 15:10
Lab Results
04/07/24 05:06
04/07/24 05:06
Calcium 8.0 mg/dl (8.4-10.2) L 04/07/24 05:06
Phosphorus 3.4 mg/dl (2.5-4.5) 04/04/24 19:10
Magnesium 2.5 mg/dl (1.6-2.3) H 04/07/24 05:06
Total Bilirubin 1.2 mg/dl (0.2-1.3) 04/05/24 03:21
AST 16 U/L (17-59) L 04/05/24 03:21
ALT < 10 U/L (0-50) 04/05/24 03:21
Alkaline Phosphatase 62 U/L (38-126) 04/05/24 03:21
Total Protein 4.2 g/dl (6.3-8.2) L D 04/05/24 03:21
Albumin 2.0 g/dl (3.5-5.0) L D 04/05/24 03:21
Physical Exam
-
NAD
ABD soft, mild distention, mild incisional tenderness. Stoma pink, viable with mild edema. Flatus filling appliance with small amount of liquid stool/bowel sweat. NGT with clear/yellow drainage
Incision with intact aquacel dressing, shadowing present
[2024-04-07] MEDS: ATIVAN 0.5 MG IV ×2 (17:42→23:11)
[2024-04-07 19:15] VITALS: BP 140/77
[2024-04-07] MEDS: DILAUDID 1 MG IV (20:21)
[2024-04-07] MEDS: NSS (PRESERVATIVE FREE) 0.25 ML IV (23:13)
[2024-04-07 23:36] VITALS: BP 149/91
--- NOTE | 2024-04-08 01:22 | PTCARENOTE ---
Patient anxious and restless; PRN IV Ativan administered at 2311 with positive results.
[2024-04-08 03:22] VITALS: BP 140/88
[2024-04-08 05:30] VITALS: BMI 22.6
[2024-04-08 06:20] LABS: Hematocrit 28.5 % (39.0-52.0); Hemoglobin 9.2 g/dL (13.0-18.0); Mean Corp Hgb Conc. 32.3 g/dL (33.0-37.0); Mean Corpuscular Hgb 23.4 pg (27.0-31.0); Mean Corpuscular Volume 72.5 fL (80.0-94.0); Mean Platelet Volume 8.3 fL (7.4-10.4); Platelet Count 467 10^3/uL (130-400); Red Blood Cell Count 3.93 10^6/uL (4.70-6.10); Red Cell Dist. Width 24.5 % (11.5-14.5); White Blood Cell Count 10.5 10^3/uL (4.8-10.8)
[2024-04-08 06:43] LABS: ALT (SGPT) < 10 U/L (0-50); AST (SGOT) 21 U/L (17-59); Albumin 2.2 g/dl (3.5-5.0); Alkaline Phosphatase 87 U/L (38-126); Blood Urea Nitrogen 19 mg/dl (9-20); Calcium 8.1 mg/dl (8.4-10.2); Carbon Dioxide 18 mmol/L (22-30); Chloride 113 mmol/L (98-107); Estimated Creatinine Clearance 67 ml/min; Glucose 67 mg/dl (70-99); Potassium 3.2 mmol/L (3.5-5.1); Sodium 142 mmol/L (135-145); Total Bilirubin 0.8 mg/dl (0.2-1.3); Total Protein 4.5 g/dl (6.3-8.2); eGFR > 60.00
[2024-04-08 07:05] VITALS: BP 135/85
[2024-04-08 07:56] LABS: Glucose - Point of Care 82 mg/dl (70-99)
[2024-04-08] MEDS: KCL 270 MEQ IV (08:55)
[2024-04-08] MEDS: HEPARIN 5000 UNITS SC ×2 (09:01→17:15)
[2024-04-08] MEDS: FLOMAX 0.400000000000000022 MG TUBE (09:01)
[2024-04-08] MEDS: PROTONIX IV 40 MG IV ×2 (09:02→20:00)
[2024-04-08] MEDS: NSS (PRESERVATIVE FREE) 10 ML IV ×2 (09:02→20:00)
--- NOTE | 2024-04-08 09:09 | W.PN.GS2 ---
Today's Communication / Plan
-
Advance to FLD
Place Thakur if urinary retention persists
Assessment / Plan
-
64-year-old male with PMH of bipolar, insomnia, sarcoidosis, HLD, GERD who presents with a couple weeks of weakness, dizziness and falls at home.
CT showing a colonic obstruction at the descending colon with a mass concerning for cancer and appears to be invading the left kidney and tail of the pancreas, significant distention with the proximal colon and small bowel, cecum measuring between 9
to 10 cm. Concern for invasion into the kidney and distal pancreas, will likely need to confirm with MRI when more stabilized.
POD #4 exlap, diverting loop transverse colostomy; kept intubated POD 0 as precaution for recent possible aspiration, extubated POD 1. Transferred out of ICU POD#2
NGT out yesterday, tolerating clears. Passing large amounts of liquid stool/flatus via stoma
AFVSS
h/h stable. No leukocytosis. Hypokalemia being managed by primary team
Urinary retention overnight s/p removal of thakur s/p CIC
- Advance to FLD
� Continue IVF
� Appreciate GI; he will need flexible sigmoidoscopy with biopsy of the mass when more stabilized post op; need to call GI back when patient ready.
� CEA 102, will need eventual CT chest for staging as well as MRI given concern for invasion into kidney/pancreas
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
- Protonix for GI ppx
� Continue Heparin sq for DVT PPX
� Pain control with Tylenol 1gm, Tramadol 50mg & Dilaudid 1.0mg PRN
� Place thakur if retention persists. Continue PO flomax.
� ABX as per primary team
Subjective Data
-
Date of Service: April 08, 2024
Patient seen and examined at bedside. Denies nausea and vomiting. Tolerating liquids. Feels fatigued. Offers no other complaints. Events of overnight noted: anxiety/restlessness and urinary retention
Objective Data
-
Intake and Output
04/07/24 04/08/24 04/09/24
06:59 06:59 06:59
Intake Total 1565 / 1565 1640 / 1640
Output Total 2450 / 2450 3000 / 3000
Balance -885 / -885 -1360 / -1360
Intake:
Oral fluids 960 / 960
IV fluids (Total) 1475 / 1475 600 / 600
D5/0.45%NaCl 1,000 ml @ 50 mls/ 50 / 50
hr IV .Q20H LENIN Rx#:[id number]
Nss 1,000 ml @ 75 mls/hr IV . 825 / 825
[id number] LENIN Rx#:[id number]
Amount instilled into GI Tube ( 90 / 90 80 / 80
Total)
Grafton Sump 90 / 90 80 / 80
Output:
Liquid stool amount 25 / 25 950 / 950
Colostomy 25 / 25 950 / 950
Gastrointestinal tube output ( 275 / 275 500 / 500
Total)
Grafton Sump 275 / 275 500 / 500
Urine, Thakur 2150 / 2150 650 / 650
Straight cath output 900 / 900
Vital Signs
Temp Pulse Resp BP Pulse Ox
97.6 F 109 18 135/85 100
04/08/24 07:05 04/08/24 07:05 04/08/24 07:05 04/08/24 07:05 04/08/24 07:05
Lab Results
04/08/24 06:02
04/08/24 06:02
Calcium 8.1 mg/dl (8.4-10.2) L 04/08/24 06:02
Phosphorus 3.4 mg/dl (2.5-4.5) 04/04/24 19:10
Magnesium 2.0 mg/dl (1.6-2.3) 04/08/24 06:02
Total Bilirubin 0.8 mg/dl (0.2-1.3) 04/08/24 06:02
AST 21 U/L (17-59) 04/08/24 06:02
ALT < 10 U/L (0-50) 04/08/24 06:02
Alkaline Phosphatase 87 U/L (38-126) 04/08/24 06:02
Total Protein 4.5 g/dl (6.3-8.2) L 04/08/24 06:02
Albumin 2.2 g/dl (3.5-5.0) L 04/08/24 06:02
Physical Exam
-
NAD
ABD soft, mild distention, mild incisional tenderness. Stoma pink, viable with mild edema. Flatus and loose stool filling appliance.
Incision with intact aquacel dressing, shadowing present
[2024-04-08 11:05] VITALS: BP 137/89
--- NOTE | 2024-04-08 11:54 | W.PN.HOSP.TC ---
Today's Communication/Plan
-
thakur placed
FLD
cxr, speech eval, early mobilization
Assessment / Plan
Assessment / Plan
General: Appears Chronically Ill
HEENT: Normocephalic, Atraumatic, Oxygen (O2 nasal cannula 4L) and Other (Dry mucous membranes)
Respiratory: Clear to Auscultation; Negative Wheezes or Rales
Cardiac: Regular Rhythm and S1/S2; Negative Murmur, Rub or Calf Tenderness
GI: Normal Bowel Sounds, Tender and Distended; NG tube in place
Genito-urinary: Clear Urine and Thakur
Musculoskeletal: No Clubbing, No Cyanosis and No Edema
Skin: Warm and Dry; Negative Rash, Ulcers or Jaundice
Neuro: Awake, Alert and Oriented
Psych: Calm
Lines/Tubes: NG tube in place draining brown fluid, heart regular tachycardic lungs scattered crackles throughout abd ostomy present with brown liquid stool -- thakur in place draining concentrated yellow urine
Large Colonic Mass/Acute on Chronic Blood Loss Anemia/GI Bleed-
- CT abd/pelvis 04/03 showed colonic obstruction at the level of the superior aspect of the descending colon with associated colonic wall thickening, mass extends to the tail of the pancreas and the adjacent left kidney, and findings suggest
invasion of these structures.
Significant distention of the colon with air and fluid extending to the level of obstruction. There is also significant distention of small bowel loops with air, fluid, and contrast, with administered oral contrast extending to the mid small bowel.
-S/p Exploratory laparotomy, takedown of splenic flexure, loop transverse colostomy, partial omentectomy, TAP block
- NGT removed; adv to FLD
- IV PPI BID
- transfused 4 units prbc thus far
- trend CBC daily
- CEA elevated - for MRI/CT staging when more stable
- CEA 102 - pending pathology results post-op, Gastroenterology - flexible sigmoidoscopy.
-retaining - failed tov - placed on thakur again
#Urinary Retention
-thakur placed
-can attempt TOV tomorrow
#Cough
-?Aspiration
-CXR, speech eval
# Sinus tachycardia
- cont IVF
- likely multifactorial: hypovolemia/dehydration
-improving
# Acute Hypoxemic Respiratory Failure
-possible aspiration event
-Extubated 04/05, 4L Nasal cannula, spo2 99% - wean off
- dc abx
#Hypokalemia
-monitor and replete
# CANELO
resolved
- renal US reviewed-with distended bladder no hydro
- post renal from colonic obstruction and dilation, s/p surgery
- repeat BMP in am
- cont IVF
# Leukocytosis
- resolved
- blood cx showed no growth in 48 hours
- cont to monitor
- monitor fever curve, wbc
# Hypermagnesemia
-Resolving
- likely from MOM use and renal failure
- Repeat Mg in AM
# Insomnia
- chronic Ambien use
- continue
# Peripheral Neuropathy
- hold gabapentin
#Bipolar disorder
- cont zyprexa
#Sarcoidosis
- f/u as OP
- stable
DVT proph- hsq
Code- Full
Anticipated Discharge: 24 - 48 hours
Subjective/Interval History
-
Date of Service: April 08, 2024
ngt removed. coughing after meal
Objective Data
-
Labs:
Laboratory Results
04/08/24
06:02
WBC 10.5
Hgb 9.2 L
Hct 28.5 L
Plt Count 467 H
Sodium 142
Potassium 3.2 L
Chloride 113 H
Carbon Dioxide 18 L
BUN 19
Creatinine 1.0
Glucose 67 L
Calcium 8.1 L
Total Bilirubin 0.8
AST 21
ALT < 10
Alkaline Phosphatase 87
Vital Signs:
Vital Signs
Temp Pulse Resp BP Pulse Ox
97.6 F 109 18 135/85 100
04/08/24 07:05 04/08/24 07:05 04/08/24 07:05 04/08/24 07:05 04/08/24 08:00
I&O
04/07/24 04/08/24 04/09/24
06:59 06:59 06:59
Intake Total 1565 / 1565 1640 / 1640
Output Total 2450 / 2450 3000 / 3000
Balance -885 / -885 -1360 / -1360
Review of Systems
-
History Source: Patient
Constitutional: Reports No Symptoms
Respiratory: Reports Cough
Cardiac: Denies Chest Pain
Abdomen/GI: Reports Abdominal Pain; Denies Nausea
Genitourinary: Reports No Symptoms
Data Reviewed
-
Diagnostic Radiology: Image personally visualized and interpreted and Report Reviewed by me
CT Scan: Image personally visualized and interpreted and Report Reviewed by me
Ultrasound: Report Reviewed by me
Labs: Labs Reviewed by me
--- NOTE | 2024-04-08 12:49 | PTOTSP ---
Speech Language Pathology:
Clinical Swallow Evaluation
64M with admission for colonic obstruction/mass and acute hypoxemic respiratory failure p/w s/s of a grossly functional oropharyngeal swallow on all textures trialed this date (full liquids).
Aspiration risk remains increased 2/2 current PNA, abdominal mass, recent extubation, questionable right sided facial and lingual weakness, and multiple comorbidities including sarcoidosis and GERD.
Recommend:
1. Full liquid diet per MD recommendations - speech to reassess for diet advancement when cleared to do so
2. Medications as tolerated
3. Aspiration precautions - HOB elevated 90 degrees, upright after meals, oral care at least 3x day, small bites, single sips, slow rate
4. HANDICRAFTS TEACHER service to follow up and advance diet as able
[2024-04-08 15:05] VITALS: BP 149/89
[2024-04-08] MEDS: LR 1000 IV (17:14)
[2024-04-08 19:55] VITALS: BP 124/83
[2024-04-08] MEDS: LOPRESSOR 12.5 MG PO (19:57)
[2024-04-08] MEDS: ZYPREXA 15 MG PO (22:02)
[2024-04-08 23:03] VITALS: BP 127/64
[2024-04-09] VITALS (8 sets, daily range): BP systolic 130–141; BP diastolic 71–93; BMI 22.1
[2024-04-09] MEDS: HEPARIN 5000 UNITS SC ×3 (01:00→15:19)
[2024-04-09] MEDS: ATIVAN 0.5 MG IV (01:30)
[2024-04-09] MEDS: TIGAN 200 MG IM (01:32)
--- NOTE | 2024-04-09 02:40 | PTCARENOTE ---
Pt had x1 large emesis episode of bile like content, HOB @ 45degree at the time, colostomy bag draining good output, Abd soft, slight tenderness, Aquacel midline dressing in place with some old drainage. PRN Tigan and Prn Ativan given with + effect.
Vs 134/93, 121, T 98.3, Pox 95% RA. PORCELAIN TECHNICIAN made aware, pt downgraded from Full liq diet to NPO.
[2024-04-09 06:53] LABS: Hematocrit 32.6 % (39.0-52.0); Hemoglobin 10.1 g/dL (13.0-18.0); Mean Corpuscular Hgb 22.6 pg (27.0-31.0); Mean Corpuscular Volume 73.1 fL (80.0-94.0); Mean Platelet Volume 8.7 fL (7.4-10.4); Platelet Count 514 10^3/uL (130-400); Red Blood Cell Count 4.46 10^6/uL (4.70-6.10); Red Cell Dist. Width 25.2 % (11.5-14.5); White Blood Cell Count 13.4 10^3/uL (4.8-10.8)
[2024-04-09 07:23] LABS: ALT (SGPT) 10 U/L (0-50); AST (SGOT) 22 U/L (17-59); Albumin 2.4 g/dl (3.5-5.0); Alkaline Phosphatase 100 U/L (38-126); Blood Urea Nitrogen 19 mg/dl (9-20); Calcium 8.4 mg/dl (8.4-10.2); Carbon Dioxide 19 mmol/L (22-30); Chloride 113 mmol/L (98-107); Estimated Creatinine Clearance 55 ml/min; Glucose 107 mg/dl (70-99); Potassium 3.5 mmol/L (3.5-5.1); Sodium 139 mmol/L (135-145); Total Bilirubin 0.7 mg/dl (0.2-1.3); Total Protein 4.9 g/dl (6.3-8.2); eGFR > 60.00
--- NOTE | 2024-04-09 08:09 | W.PN.HOSP.TC ---
Addendum entered and electronically signed by Dipak Blanco MD 04/09/24 15:43:
WIll start on empiric abx; paracentesis most likely tomorrow
Addendum entered and electronically signed by Dipak Blanco MD 04/09/24 15:34:
#Sepsis work up with ua/ucx and blood cultures
-May benefit from paracentesis tomorrow - prior to starting empiric abx
-start abx if decomensates
#tachycardia- has been chronic for many years
-add echo
-see plan from [facility]
Addendum entered and electronically signed by Dipak Blanco MD 04/09/24 12:26:
I saw and examined the patient.
The Residents note was reviewed and I agree with the note. See below for further info
Comment:
Plan:
IVF
Increase Lopressor dosing
Thiamine IV
Avoid benzos if possible, started back on olanzapine
VSE tomorrow
NPO for today, defer to surgery regarding oral intake; Obstructive series today
General: Appears Chronically Ill
HEENT: Normocephalic, Atraumatic, Oxygen (O2 nasal cannula 4L) and Other (Dry mucous membranes)
Respiratory: Clear to Auscultation; Negative Wheezes or Rales
Cardiac: Regular Rhythm and S1/S2; Negative Murmur, Rub or Calf Tenderness
GI: Normal Bowel Sounds, Tender and Distended; NG tube in place
Genito-urinary: Clear Urine and Thakur
Musculoskeletal: No Clubbing, No Cyanosis and No Edema
Skin: Warm and Dry; Negative Rash, Ulcers or Jaundice
Neuro: Awake, Alert and Oriented
Psych: Calm
Lines/Tubes: Thakur in place
Subjective: vomiting x 2 overnight. npo placed
Large Colonic Mass/Acute on Chronic Blood Loss Anemia/GI Bleed-
- CT abd/pelvis 04/03 showed colonic obstruction at the level of the superior aspect of the descending colon with associated colonic wall thickening, mass extends to the tail of the pancreas and the adjacent left kidney, and findings suggest
invasion of these structures.
Significant distention of the colon with air and fluid extending to the level of obstruction. There is also significant distention of small bowel loops with air, fluid, and contrast, with administered oral contrast extending to the mid small bowel.
-S/p Exploratory laparotomy, takedown of splenic flexure, loop transverse colostomy, partial omentectomy, TAP block
- NGT removed;
-NPO for now; f/u bowel obstructive series
-F/u Surgery recs
- IV PPI BID
- transfused 4 units prbc thus far
- trend CBC daily
- CEA elevated - for MRI/CT staging when more stable
- CEA 102 - pending pathology results post-op, Gastroenterology - flexible sigmoidoscopy.
#Urinary Retention
-thakur placed
-can attempt TOV tomorrow
#Cough
-?Aspiration
-VSE tomorrow - having coughing after small amounts of food again
# Sinus tachycardia
- No improvement despite fluids
- increase lopressor to 25mg bid and monitor
# Encephalopathy
� As per brother, patient has not always been 1% cognizant of everything going on
� Alert and oriented x 3 with me during the morning although does have episodes of delirium as per nursing staff, resident
� This may be related to delirium while being in the hospital; alcohol withdrawal seems unlikely as patient 8 days post alcohol intake
� Has extensive alcohol use, started on Wernicke's dose thiamine
-Avoid benzodiazepines if possible, started back olanzapine yesterday evening
# Acute Hypoxemic Respiratory Failure
-possible aspiration event
-Extubated 04/05, 4L Nasal cannula, spo2 99% - wean off
- dc abx
-see plan above for ?aspiration
#Hypokalemia
-monitor and replete
# CANELO
resolved
- renal US reviewed-with distended bladder no hydro
- post renal from colonic obstruction and dilation, s/p surgery
- repeat BMP in am
- cont IVF
# Leukocytosis
- blood cx showed no growth in 48 hours
- cont to monitor
- monitor fever curve, wbc
# Hypermagnesemia
-Resolving
- likely from MOM use and renal failure
- Repeat Mg in AM
# Insomnia
- chronic Ambien use
- continue
# Peripheral Neuropathy
- hold gabapentin
#Bipolar disorder
- cont zyprexa
#Sarcoidosis
- f/u as OP
- stable
DVT proph- hsq
Code- Full
Original Note:
Today's Communication/Plan
-
Added IV thiamine.
Changed lorazepam to twice daily as needed.
Bumped up metoprolol dose.
Video swallow study
Assessment / Plan
Assessment / Plan
Assessment-
64-year-old male presents to the ER reporting dizziness, lightheadedness, frequent falls x 6 months and constipation x 10 days. Diagnosed with colonic mass causing obstruction, s/p exploratory laparotomy.
Plan-
Acute on chronic blood loss anemia-GI bleed
CT abdomen pelvis-04/03-showed colonic obstruction at the level of superior aspect of the descending colon with associated colonic wall thickening mass extends to the tail of pancreas and adjacent left kidney, and findings suggest invasion of the
structures. Significant distention of the colon with air and fluid extending to the level of obstruction. There is also significant distention of the small bowel loops with air-fluid and contrast with administered oral contrast extending into the
small bowel.
S/p exploratory laparotomy, takedown of splenic flexure, loop transverse colostomy, partial omentectomy, T AP block.
Could not withstand full liquid diet, overnight 2 episodes of vomitings.
Changed to NPO.
S/p 4 units of PRBC.
Continue IV PPI.
Trend CBC.
CEA 102-pending pathology results postop, for MRI or CT staging when more stable.
Delirium-
Secondary to chronic alcohol use versus lorazepam versus baseline.
Reduce lorazepam dosing to twice daily.
Start thiamine supplementation.
Urinary Retention
thakur placed
can attempt TOV tomorrow
Cough
Chest t-mkf-sdolinitlcdu pneumonia. Speech eval-no aspiration.
Video swallow study to rule out aspiration.
Sinus tachycardia
cont IVF
likely multifactorial: hypovolemia/dehydration
Increase metoprolol dosing.
Acute Hypoxemic Respiratory Failure -resolved.
Extubated 04/05, currently on room air.
Hypokalemia -resolved.
monitor and replete
CANELO
resolved
- renal US reviewed-with distended bladder no hydro
- post renal from colonic obstruction and dilation, s/p surgery
- repeat BMP in am
- cont IVF
Leukocytosis
WBC count at 13. Temperature within normal limits.
blood cx showed no growth in 48 hours
Likely secondary to inflammation/neoplasm
No evidence of infection.
Hypermagnesemia
Resolved.
likely from MOM use and renal failure
Insomnia
Continue Ambien use
Peripheral Neuropathy
hold gabapentin
Bipolar disorder
cont zyprexa
Sarcoidosis
f/u as OP
stable
DVT proph-
Heparin.
Code- Full
Anticipated Discharge: > 48 hours
Subjective/Interval History
-
Date of Service: April 09, 2024
Could not withstand liquid diet, vomiting seen to 2 episodes.
Patient is confused alert and oriented to himself and date and time but not oriented to place.
Family reports to have some baseline confusion over the last 6 months
Objective Data
-
Labs:
Laboratory Results
04/09/24
05:38
WBC 13.4 H
Hgb 10.1 L
Hct 32.6 L
Plt Count 514 H
Sodium 139
Potassium 3.5
Chloride 113 H
Carbon Dioxide 19 L
BUN 19
Creatinine 1.2
Glucose 107 H
Calcium 8.4
Total Bilirubin 0.7
AST 22
ALT 10
Alkaline Phosphatase 100
Vital Signs:
Vital Signs
Temp Pulse Resp BP Pulse Ox
99.2 F 127 18 137/91 95
04/09/24 05:25 04/09/24 05:25 04/09/24 05:25 04/09/24 05:25 04/09/24 05:25
I&O
04/08/24 04/09/24 04/10/24
06:59 06:59 06:59
Intake Total 1640 / 1640 360 / 360
Output Total 3000 / 3000 1235 / 1235
Balance -1360 / -1360 -875 / -875
Review of Systems
-
History Source: Patient
Constitutional: Reports No Appetite and Fatigue
Respiratory: Reports No Symptoms
Cardiac: Reports Diaphoresis
Abdomen/GI: Reports Nausea and Vomiting
Genitourinary: Reports No Symptoms
Musculoskeletal: Reports No Symptoms
Neuro: Reports No Symptoms
Endocrine: Reports No Symptoms
Hematologic / Lymphatic: Reports No Symptoms
Physical Exam
-
General: Comfortable
HEENT: Normocephalic and Atraumatic
Respiratory: Clear to Auscultation (No wheezes, rales, rhonchi.)
Cardiac: Regular Rhythm, S1/S2 and Other (tachycardia, no murmurs, rubs, gallops)
GI: Soft, Nontender, Nondistended, Ostomy (Output noticed.) and Other (Incision dressing looks clean and intact.)
Genito-urinary: No Costovertebral Tender
Musculoskeletal: No Clubbing, No Cyanosis and No Edema
Skin: Warm
Neuro: Awake, Alert and Oriented (Time and place but not person.)
[2024-04-09] MEDS: FLOMAX TUBE ×2 (08:53→09:07)
[2024-04-09] MEDS: NSS (PRESERVATIVE FREE) 10 ML IV ×2 (08:54→21:04)
[2024-04-09] MEDS: PROTONIX IV 40 MG IV ×2 (08:55→21:04)
[2024-04-09] MEDS: LOPRESSOR 12.5 MG PO (08:55)
--- NOTE | 2024-04-09 12:19 | PTOTSP ---
NEEDS OT EVALUATION FOR ADL DYSFUNCTION.
--- NOTE | 2024-04-09 12:50 | W.PN.CRS1 ---
Today's Communication / Plan
-
CT C/A/P
NPO
Assessment/Plan
-
64-year-old male with PMH of bipolar, insomnia, sarcoidosis, HLD, GERD who presents with a couple weeks of weakness, dizziness and falls at home.
CT showing a colonic obstruction at the descending colon with a mass concerning for cancer and appears to be invading the left kidney and tail of the pancreas, significant distention with the proximal colon and small bowel, cecum measuring between 9
to 10 cm. Concern for invasion into the kidney and distal pancreas, will likely need to confirm with MRI when more stabilized.
POD #5 exlap, diverting loop transverse colostomy; kept intubated POD 0 as precaution for recent possible aspiration, extubated POD 1. Transferred out of ICU POD#2
NGT out 04/07, tolerating clears. Passing large amounts of liquid stool/flatus via stoma
Tachycardic, afebrile.
h/h stable. No leukocytosis. Hypokalemia being managed by primary team
Urinary retention overnight s/p removal of thakur, thakur replaced
- CT C/A/P with IV contrast ordered given vomiting and cough. Unable to swallow po at this time.
- Video swallow pending.
� Restart IVF.
� Appreciate GI; he will need flexible sigmoidoscopy with biopsy of the mass when more stabilized post op; need to call GI back when patient ready.
� CEA 102, will need eventual MRI given concern for invasion into kidney/pancreas
� Appreciate hospitalist,
- Protonix for GI ppx
� Continue Heparin sq for DVT PPX
� Pain control with Tylenol 1gm, Tramadol 50mg & Dilaudid 1.0mg PRN
� Continue PO flomax.
� ABX as per primary team
- Will discuss changing midline aquacell dressing with wound RN tomorrow when ostomy changed. Rebel in place.
Subjective Data
Procedure
04/04/2024- Exploratory laparotomy, takedown of splenic flexure, loop transverse colostomy, partial omentectomy, TAP block
Subjective Data
Date of Service: April 09, 2024
Patient states he vomited earlier this morning twice. He states it 'came out of nowhere'. He is hiccuping currently. He has some cough. He is very thirsty. There is still stool coming out of his stoma.
Objective Data
-
Vital Signs
Temp Pulse Resp BP Pulse Ox
98.1 F 108 18 133/85 96
04/09/24 11:05 04/09/24 11:05 04/09/24 11:05 04/09/24 11:05 04/09/24 11:05
Intake & Output
04/08/24 04/09/24 04/10/24
06:59 06:59 06:59
Intake Total 1640 / 1640 360 / 360
Output Total 3000 / 3000 1235 / 1235
Balance -1360 / -1360 -875 / -875
Intake:
Oral fluids 960 / 960 360 / 360
IV fluids (Total) 600 / 600
Amount instilled into GI Tube ( 80 / 80
Total)
Davie Sump 80 / 80
Output:
Liquid stool amount 950 / 950 700 / 700
Colostomy 950 / 950 700 / 700
Gastrointestinal tube output ( 500 / 500
Total)
Davie Sump 500 / 500
Urine, Thakur 650 / 650 535 / 535
Straight cath output 900 / 900
Other:
Number of immeasurable emeses? 2
Number of unmeasured liquid
stools
Colostomy 60
Lab Results
04/09/24 05:38
04/09/24 05:38
Physical Exam
-
General: No Acute Distress and AOx3
Abdomen: Soft, Non Distended and Other (Stoma warm and pink with stool output)
Wound: Dressing in Place
Incision: Clear, Dry, Intact (Weeks in place)
[2024-04-09] MEDS: NSS 1000 IV (14:04)
[2024-04-09] MEDS: FLOMAX 0.400000000000000022 MG TUBE (14:53)
[2024-04-09] MEDS: THIAMINE INJECTION 255 MG IV (15:19)
--- NOTE | 2024-04-09 15:45 | PHA.VAN.IN ---
Addendum entered and electronically signed by Barbara Devries [facility] 04/09/24 15:49:
Correction: will give 1500mg loading dose
(2000mg is > 30 mg/kg)
Original Note:
Assessment
- Assessment
Renal Function: Unknown baseline (SCR 2.4 on admission, decreased to 1 on 04/08 and increased today to 1.2)
Concomitant Antimicrobials: piperacillin/tazobactam
Plan
- Plan
Initial / Loading Dose: 2000mg - administration pending
Maintenance Regimen: dosing by level given unknown baseline SCR
Monitoring: random 04/10 0600
MRSA Screen: Ordered per protocol
Pharmacokinetics Vancomycin I
- -
Patient Age: 64
Patient Sex: Male
Vancomycin Day #: 1
Indication: Pulmonary/Respiratory
Requesting Provider: Dr. Blanco
Pertinent Antimicrobial Allergies:
NKDA
Height / Weight:
Height 5 ft 6 in
Actual Weight 61.961 kg
- Vital Signs / Lab Results
Temp Pulse Resp BP Pulse Ox
98.1 F 108 18 133/85 96
04/09/24 11:05 04/09/24 11:05 04/09/24 11:05 04/09/24 11:05 04/09/24 11:05
Lab Results - Hematology
04/07/24 04/08/24 04/09/24
05:06 06:02 05:38
WBC 7.4 10.5 13.4 H
Lab Results - Chemistry
04/07/24 04/08/24 04/09/24
05:06 06:02 05:38
BUN 25 H 19 19
Creatinine 1.1 1.0 1.2
Estimated Creat Clear 61 67 55
Albumin 2.2 L 2.4 L
Microbiology Results
04/02/24 19:55 Blood Culture - Final
Blood/Venous No Growth - Final Report
04/02/24 19:45 Blood Culture - Final
Blood/Venous No Growth - Final Report
[2024-04-09] MEDS: VANCOCIN 300 MG IV (16:59)
[2024-04-09] MEDS: VANCOCIN 300 ML IV (16:59)
[2024-04-09 17:02] LABS: Lactic Acid 0.9 mmol/L (0.7-2.0)
[2024-04-09] MEDS: ZOSYN 100 IV ×2 (17:19→22:32)
[2024-04-09 17:36] LABS: Urine Albumin 1+ (Neg - Trace); Urine Bilirubin 1+ (Negative); Urine Character Clear (Clear); Urine Color Yellow; Urine Glucose Negative (Negative); Urine Ketone 3+ (Negative); Urine Leukocyte 1+ (Negative); Urine Nitrite Negative (Negative); Urine Occult Blood 3+ (Negative); Urine Urobilinogen Negative (Neg - 1+)
[2024-04-09 17:44] LABS: Urine Mucus Few; Urine Squamous Cell 0-2 /LPF (Few)
[2024-04-09 17:45] LABS: Urine White Cell 16-20 /HPF (0-5)
[2024-04-09 17:46] LABS: Urine Bacteria Few (Negative)
[2024-04-09] MEDS: LOPRESSOR PO (20:51)
[2024-04-09] MEDS: ZYPREXA PO (22:32)
[2024-04-10] MEDS: HEPARIN 5000 UNITS SC ×4 (00:50→23:50)
[2024-04-10] MEDS: THIAMINE INJECTION 255 MG IV ×4 (00:50→23:49)
[2024-04-10] MEDS: NSS 1000 IV ×2 (00:53→14:34)
[2024-04-10] MEDS: ZOSYN 100 IV ×4 (03:40→22:05)
[2024-04-10 03:48] VITALS: BP 132/75
[2024-04-10 05:26] VITALS: BMI 23.9
[2024-04-10 06:00] VITALS: BMI 23.9
[2024-04-10 07:23] LABS: Hematocrit 28.3 % (39.0-52.0); Hemoglobin 8.7 g/dL (13.0-18.0); Mean Corp Hgb Conc. 30.7 g/dL (33.0-37.0); Mean Corpuscular Volume 74.7 fL (80.0-94.0); Mean Platelet Volume 8.6 fL (7.4-10.4); Platelet Count 389 10^3/uL (130-400); Red Blood Cell Count 3.79 10^6/uL (4.70-6.10); Red Cell Dist. Width 25.6 % (11.5-14.5); White Blood Cell Count 11.2 10^3/uL (4.8-10.8)
[2024-04-10 07:34] LABS: Vancomycin Random 11.3 ug/ml
[2024-04-10 07:43] LABS: ALT (SGPT) 11 U/L (0-50); AST (SGOT) 24 U/L (17-59); Albumin 2.2 g/dl (3.5-5.0); Alkaline Phosphatase 87 U/L (38-126); Blood Urea Nitrogen 21 mg/dl (9-20); Calcium 7.8 mg/dl (8.4-10.2); Carbon Dioxide 16 mmol/L (22-30); Chloride 117 mmol/L (98-107); Estimated Creatinine Clearance 52 ml/min; Glucose 77 mg/dl (70-99); Potassium 3.2 mmol/L (3.5-5.1); Sodium 144 mmol/L (135-145); Total Bilirubin 0.6 mg/dl (0.2-1.3); Total Protein 4.5 g/dl (6.3-8.2); Triglycerides 128 mg/dl (10-149); eGFR > 60.00
--- NOTE | 2024-04-10 07:51 | PTCARENOTE ---
Pt slept well, with no c/o nausea/vomiting, VSS, aaox3. NPO, IVF's infusing @ 125/hr. Colostomy with large brown liq output. Neville cath patent, draining clear yellow urine for a total output of 500 cc for this shift. Abd soft nontender, slightly
distended, midline Aquacel dsg intact with old drainage w/o change from previous day.
[2024-04-10 08:00] VITALS: BP 126/77
--- NOTE | 2024-04-10 08:06 | PHA.VAN.FU ---
Vancomycin Assessment / Plan
- Assessment
Renal Function: SCR Increasing
WBC's are: Trending Down
In the past 24 hrs, patient has been: Afebrile
Concomitant Antimicrobials: piperacillin/tazobactam
- Assessment - Therapeutic Drug Monitoring
Random Level: 11.3 - drawn ~13.5H after 1500mg loading dose
- Dosing Plan
Dosing by Level: Re-dose today (Vanc 1000mg)
- Monitoring Plan
Random Level: 04/11 600
- Follow Up
Pharmacy will continue to follow.
Vancomycin Follow UP
- -
Patient Age: 64
Patient Sex: Male
Vancomycin Day #: 2
Indication: Pulmonary/Respiratory
Requesting Provider: Dr. Blanco
Pertinent Antimicrobial Allergies:
NKDA
Height / Weight:
Height 5 ft 6 in
Actual Weight 67.041 kg
- Vital Signs / Lab Results
Temp Pulse Resp BP Pulse Ox
98.2 F 91 17 132/75 96
04/10/24 03:48 04/10/24 03:48 04/10/24 03:48 04/10/24 03:48 04/10/24 03:48
Lab Results - Hematology
04/08/24 04/09/24 04/10/24
06:02 05:38 06:23
WBC 10.5 13.4 H 11.2 H
Lab Results - Chemistry
04/08/24 04/09/24 04/10/24
06:02 05:38 06:23
BUN 19 19 21 H
Creatinine 1.0 1.2 1.3
Estimated Creat Clear 67 55 52
Albumin 2.2 L 2.4 L 2.2 L
04/09/24
16:20
Lactic Acid 0.9
Lab Results - Urine
04/09/24
17:26
Urine Nitrite (Reflex) Negative
Leukocyte Esterase Rfl 1+ A
Ur Squamous Epith Cells 0-2
Therapeutic Drug Monitoring
Random Vancomycin 11.3 ug/ml 04/10/24 06:23
[2024-04-10] MEDS: FLOMAX TUBE (08:30)
[2024-04-10] MEDS: LOPRESSOR PO (08:31)
--- NOTE | 2024-04-10 08:46 | W.PN.HOSP.TC ---
Addendum entered and electronically signed by Ajay Varela MD 04/10/24 17:17:
Patient seen and examined with resident
Discussed with patient's brother at the bedside
Discussed with nursing
Impression:
Bowel obstruction
Gastrointestinal hemorrhage
� Status post exploratory laparotomy, takedown of splenic flexure, loop transverse colostomy and partial laminectomy
Intraoperative pathology negative for malignancy. CEA 102.
Postoperative ileus
Acute blood loss anemia
Delirium.
Concern for aspiration
Minimal pelvic ascites
Acute urinary retention
CANELO, resolved.
Hypokalemia
Conditions prior to admission:
Sarcoidosis
Essential hypertension
GERD
Peripheral neuropathy
Bipolar disorder
Insomnia
Former smoker
Plan:
Status post exploratory laparotomy with colostomy.
CT scan findings reviewed showing left-sided colonic mass possibly involving pancreas and adjacent to the left kidney
Intraoperative pathology with inflammatory changes negative for malignancy. Tumor markers not elevated
Today with no abdominal pain and stable colostomy output.
Advance diet to clear liquids and monitor.
Follow electrolytes
Wean off IV fluids as tolerates diet.
Consideration of TPN if prolonged ileus.
Patient will need additional workup with imaging including MRI and CT scan for staging.
Follow-up sigmoidoscopy with biopsy.
Has minimal pelvic ascites not amenable for paracentesis
GI bleed
Acute anemia
Hemoglobin stabilized status post 4 units peak RBC transfused.
Delirium.
Mental status improved and close to baseline.
Monitor closely.
Reinstate preadmission regimen for bipolar disorder including olanzapine
Reinstate gabapentin.
Monitor his volume status closely.
Concern for aspiration.
Noted with elevated white count.
CT scan of the chest abdomen and pelvis 04/09 with chronic interstitial changes minimal pleural effusion.
Reinstated antibiotics vancomycin/Zosyn covering aspiration
Now with trending down white count.
Clinically less likely aspirating.
Monitor on antibiotics for another 24 to 48 hours.
Bedside speech and swallow evaluation, if concern with low ask for VSE.
Acute urine retention
Status post Thakur catheter placed.
Voiding trial on 04/10.
Original Note:
Today's Communication/Plan
-
Diagnostic tap, minimal fluid.
Thakur removal and voiding trial.
advance diet to clear liquids - per colorectal surgery.
potassium supplementation.
Assessment / Plan
Assessment / Plan
Assessment-
64-year-old male presents to the ER reporting dizziness, lightheadedness, frequent falls x 6 months and constipation x 10 days. Diagnosed with colonic mass causing obstruction, s/p exploratory laparotomy.
Plan-
Acute on chronic blood loss anemia-GI bleed
CT abdomen pelvis-04/03-showed colonic obstruction at the level of superior aspect of the descending colon with associated colonic wall thickening mass extends to the tail of pancreas and adjacent left kidney, and findings suggest invasion of the
structures. Significant distention of the colon with air and fluid extending to the level of obstruction. There is also significant distention of the small bowel loops with air-fluid and contrast with administered oral contrast extending into the
small bowel.
S/p exploratory laparotomy, takedown of splenic flexure, loop transverse colostomy, partial omentectomy, T AP block.
Could not withstand full liquid diet, overnight 2 episodes of vomitings.
Changed to NPO.
CT abdomen pelvis-04/09-Findings in the chest again seen compatible with emphysematous changes, reticular interstitial thickening and some central traction bronchiectasis at least in part correlating with known history of Sarcoidosis and chronic lung
disease.
Slightly increased small left pleural effusion with accompanying small left lower lobe consolidation compatible with atelectasis and/or pneumonia.
Tiny right pleural effusion with accompanying mild subsegmental atelectasis.
Moderate to large volume ascites in the abdomen and large volume ascites in the true pelvis, increased in comparison to prior CT.
Diverting left lower quadrant transverse colostomy performed in the interval since prior CT. Numerous loops of large mildly prominent and small bowel with fluid and air-fluid levels and at least relative wall thickening which could represent
enteritis. Unfortunately, without oral contrast, evaluation for discrete abnormal focal fluid collection is markedly limited and cannot be excluded. Similar to prior study is a presumed thickened mass/malignancy with central aeration involving the
descending colon situated anterior to the left kidney, somewhat similar to recent prior study.
Small volume free air is seen presumably the sequela of recent surgery. Recent perforation cannot be excluded.
S/p 4 units of PRBC.
Continue IV PPI.
Trend CBC.
CEA 102- pathology results-omentum with vascular congestion inflammation, no evidence of malignancy.
for MRI or CT staging when more stable.
Colorectal surgery-on board, appreciate inputs.
GI-on board, flexible sigmoidoscopy and biopsy.
Delirium-
Secondary to chronic alcohol use versus lorazepam versus baseline secondary to bipolar disorder..
Reduce lorazepam dosing to twice daily.
Continue thiamine supplementation.
Improved today, baseline has some delirium.
Ascites -
moderate to large ascitic fluid noted on CT scan.
PE findings - tympanic to percussion, and bowel sounds present.
Diagnostic tap ordered- minimal fluid.
Urinary Retention
thakur placed
Thakur removed-04/10/2023.
Cough
Chest [id number] pneumonia. Speech eval-no aspiration.
Video swallow study to rule out aspiration.
Sinus tachycardia
cont IVF
likely multifactorial: hypovolemia/dehydration
Increase metoprolol dosing.
echo - 04/10 -
Normal biventricular size and systolic function without regional wall motion
abnormality.
No significant valvular disease.
No prior study available for comparison.
Acute Hypoxemic Respiratory Failure -resolved.
Extubated 04/05, currently on room air.
Hypokalemia -
Potassium replacement today.
monitor and replete as needed.
CANELO
resolved
- renal US reviewed-with distended bladder no hydro
- post renal from colonic obstruction and dilation, s/p surgery
BUN and creatinine trending up.
Trend renal function.
- cont IVF
Leukocytosis
WBC count at 13. Leukocytosis improving. Temperature within normal limits.
blood cx showed no growth in 48 hours
Likely secondary to inflammation/neoplasm
No evidence of infection.
Hypermagnesemia
Resolved.
likely from MOM use and renal failure
Insomnia
Continue Ambien use
Peripheral Neuropathy
hold gabapentin
Bipolar disorder
cont zyprexa
Sarcoidosis
f/u as OP
stable
DVT proph-
Heparin.
Code- Full
Anticipated Discharge: > 48 hours
Subjective/Interval History
-
Date of Service: April 10, 2024
Nausea improved, no vomitings overnight.
Confused, and not oriented to place. Oriented to person and time overnight and in the morning.
Awake alert oriented, and not confused at the time of my bedside encounter.
Objective Data
-
Labs:
Laboratory Results
04/10/24
06:23
WBC 11.2 H
Hgb 8.7 L
Hct 28.3 L
Plt Count 389 D
Sodium 144
Potassium 3.2 L
Chloride 117 H
Carbon Dioxide 16 L
BUN 21 H
Creatinine 1.3
Glucose 77
Calcium 7.8 L
Total Bilirubin 0.6
AST 24
ALT 11
Alkaline Phosphatase 87
Vital Signs:
Vital Signs
Temp Pulse Resp BP Pulse Ox
98.2 F 91 17 132/75 96
04/10/24 03:48 04/10/24 03:48 04/10/24 03:48 04/10/24 03:48 04/10/24 03:48
I&O
04/09/24 04/10/24 04/11/24
06:59 06:59 06:59
Intake Total 360 / 360 1755 / 1755
Output Total 1235 / 1235 2175 / 2175
Balance -875 / -875 -420 / -420
Review of Systems
-
History Source: Patient
Constitutional: Reports No Symptoms
Respiratory: Reports No Symptoms
Cardiac: Reports No Symptoms
Abdomen/GI: Reports Nausea
Genitourinary: Reports No Symptoms
Neuro: Reports Other (Mild confusion)
Endocrine: Reports No Symptoms
Hematologic / Lymphatic: Reports No Symptoms
Physical Exam
-
General: Comfortable (on room air)
HEENT: Normocephalic, Atraumatic and Moist Mucous Membranes
Respiratory: Clear to Auscultation (in b/l upper lobes, ) and Decreased Breath Sounds (in b/l lower lobes)
Cardiac: Regular Rhythm, S1/S2, Tachycardic and Other; Negative Murmur, Rub or Gallop
GI: Soft, Nontender, Nondistended, Normal Bowel Sounds, Flat and Ostomy (bilious output noted. exploratory laparotomy dressing intact.); Negative Organomegaly
Genito-urinary: No Costovertebral Tender
Musculoskeletal: No Clubbing, No Cyanosis, No Edema and Other (intentional tremor in RUE.)
Neuro: AO x 3 and No Motor Deficits
[2024-04-10 09:03] LABS: Magnesium 1.9 mg/dl (1.6-2.3)
[2024-04-10] MEDS: KCL 270 MEQ IV (09:21)
[2024-04-10] MEDS: NSS (PRESERVATIVE FREE) 10 ML IV ×2 (09:23→20:37)
[2024-04-10] MEDS: PROTONIX IV 40 MG IV ×2 (09:23→20:37)
[2024-04-10] MEDS: NSS IV (10:09)
--- NOTE | 2024-04-10 11:09 | W.PN.CRS1 ---
Today's Communication / Plan
-
paracentesis today
advance to clears when able, ? TPN
d/c thakur
Assessment/Plan
-
64-year-old male with PMH of bipolar, insomnia, sarcoidosis, HLD, GERD who presents with a couple weeks of weakness, dizziness and falls at home.
CT showing a colonic obstruction at the descending colon with a mass concerning for cancer and appears to be invading the left kidney and tail of the pancreas, significant distention with the proximal colon and small bowel, cecum measuring between 9
to 10 cm. Concern for invasion into the kidney and distal pancreas, will likely need to confirm with MRI when more stabilized.
POD #6 exlap, diverting loop transverse colostomy; kept intubated POD 0 as precaution for recent possible aspiration, extubated POD 1. Transferred out of ICU POD#2
NGT out 04/07, tolerating clears. Passing large amounts of liquid stool/flatus via stoma
Tachycardic, afebrile.
h/h stable. No leukocytosis. Hypokalemia being managed by primary team
Urinary retention overnight s/p removal of thakur, thakur replaced
- Paracentesis today per primary team
- Video swallow pending - I have reached out to the speech pathologist regarding our concerns for barium at this time. Will discuss with her.
- Consider IV TPN tomorrow if still remains NPO. Appreciate nutrition TPN recs. From our standpoint we will start on clears when he is able to do so.
� Appreciate GI; he will need flexible sigmoidoscopy with biopsy of the mass when more stabilized post op; need to call GI back when patient ready.
� CEA 102, will need eventual MRI given concern for invasion into kidney/pancreas
� Continue Heparin sq for DVT PPX
� Pain control with Tylenol 1gm, Tramadol 50mg & Dilaudid 1.0mg PRN
� ABX as per primary team
- Ok to for WOC to change midline aquacell dressing when ostomy changed. Rebel in place.
- D/C thakur
Subjective Data
Procedure
04/04/2024- Exploratory laparotomy, takedown of splenic flexure, loop transverse colostomy, partial omentectomy, TAP block
Subjective Data
Date of Service: April 10, 2024
Patient states that no complaints. He has not had any nausea or vomiting. He is very thirsty. His pain has been controlled.
Objective Data
-
Vital Signs
Temp Pulse Resp BP Pulse Ox
98.5 F 98 16 126/77 98
04/10/24 08:00 04/10/24 08:00 04/10/24 08:00 04/10/24 08:00 04/10/24 08:00
Intake & Output
04/09/24 04/10/24 04/11/24
06:59 06:59 06:59
Intake Total 360 / 360 1755 / 1755
Output Total 1235 / 1235 2175 / 2175
Balance -875 / -875 -420 / -420
Intake:
Oral fluids 360 / 360
IV fluids (Total) 1300 / 1300
IV piggybacks 455 / 455
Output:
Liquid stool amount 700 / 700 1500 / 1500
Colostomy 700 / 700 1500 / 1500
Urine, Thakur 535 / 535 675 / 675
Other:
Number of immeasurable emeses? 2
Number of unmeasured liquid
stools
Colostomy 60
Lab Results
04/10/24 06:23
04/10/24 06:23
Physical Exam
-
General: No Acute Distress and AOx3
Abdomen: Soft, Non Distended, Non Tender and Other (Colostomy warm and pink with function.)
Skin: Warm and Dry
Wound: Dressing in Place
[2024-04-10 12:04] VITALS: BP 135/71
[2024-04-10] MEDS: VANCOCIN 200 IV (14:33)
--- NOTE | 2024-04-10 15:02 | WOUNDNOTE ---
[facility] RN NOTE: Patient visited for ostomy appliance change and ostomy teaching. Patients and niece, who will be assisting with care were present. Patient was drowsy and not able to physically participate but did ask pertinent questions. Per
order, Aquacell dressing removed. Rebel intact, no s/s of infections at surgical site and clean dressing applied. Transverse ostomy draining liquid brown stool. Stoma pink and budded, peristomal skin intact. Appliance changed with Anabell barrier
# [id number] and pouch#[id number]. Appliance change demonstrated to patient, and niece and all questions answered. Will continue to follow with patient.
--- NOTE | 2024-04-10 15:15 | CM ---
Met with patient, , brother and niece in room. Discussed therapy recommendation for SNF. Medicare [employer] lists provided. Family will choose preferences and notify CM. Patient is not medically cleared for discharged.
[2024-04-10 16:20] VITALS: BP 140/73
[2024-04-10] MEDS: LOPRESSOR 25 MG PO (20:36)
[2024-04-10 20:54] LABS: Glucose - Point of Care 151 mg/dl (70-99)
--- NOTE | 2024-04-10 21:10 | PTCARENOTE ---
Accu-check obtained; patient noted to be mildly diaphoretic; BS 151.
[2024-04-10] MEDS: ZYPREXA 15 MG PO (22:05)
[2024-04-10] MEDS: NEURONTIN 300 MG PO (22:05)
[2024-04-10 23:12] VITALS: BP 144/76
[2024-04-11] MEDS: NSS 1000 IV ×2 (02:02→13:14)
[2024-04-11] MEDS: ZOSYN 100 IV ×4 (04:38→23:09)
[2024-04-11 05:39] VITALS: BMI 24.4
[2024-04-11 07:51] LABS: % Basophils 0.5 % (0-2); % Eosinophils 6.7 % (0-6); % Immature Granulocytes 1.7 % (0-0.5); % Lymphocytes 11.5 % (20.5-51.1); % Monocytes 6.9 % (1.7-9.3); % Neutrophils 72.7 % (42.2-75.2); Absolute Basophils 0.1 10^3/uL (0-0.2); Absolute Eosinophils 0.8 10^3/uL (0-0.7); Absolute Immature Granulocytes 0.2 10^3/uL (0-0.05); Absolute Lymphocytes 1.3 10^3/uL (1.2-3.4); Absolute Monocytes 0.8 10^3/uL (0.1-0.6); Absolute Neutrophils 8.1 10^3/uL (1.4-6.5); Hematocrit 27.3 % (39.0-52.0); Hemoglobin 8.7 g/dL (13.0-18.0); Mean Corp Hgb Conc. 31.9 g/dL (33.0-37.0); Mean Platelet Volume 8.9 fL (7.4-10.4); Nucleated Red Blood Cells % 0 % (-); Platelet Count 400 10^3/uL (130-400); Red Blood Cell Count 3.79 10^6/uL (4.70-6.10); Red Cell Dist. Width 25.4 % (11.5-14.5); White Blood Cell Count 11.2 10^3/uL (4.8-10.8)
[2024-04-11 08:00] VITALS: BP 133/77
[2024-04-11 08:28] LABS: Vancomycin Random 10.1 ug/ml
[2024-04-11] MEDS: FLOMAX 0.400000000000000022 MG TUBE (08:32)
[2024-04-11] MEDS: NSS IV (08:32)
[2024-04-11] MEDS: HEPARIN 5000 UNITS SC ×3 (08:32→23:59)
[2024-04-11] MEDS: THIAMINE INJECTION 255 MG IV ×2 (08:33→17:12)
[2024-04-11] MEDS: NSS (PRESERVATIVE FREE) 10 ML IV ×2 (08:33→21:00)
[2024-04-11] MEDS: LOPRESSOR 25 MG PO ×2 (08:33→20:58)
[2024-04-11] MEDS: PROTONIX IV 40 MG IV ×2 (08:33→21:00)
[2024-04-11 08:35] LABS: ALT (SGPT) < 10 U/L (0-50); AST (SGOT) 23 U/L (17-59); Alkaline Phosphatase 79 U/L (38-126); Blood Urea Nitrogen 15 mg/dl (9-20); Calcium 7.4 mg/dl (8.4-10.2); Carbon Dioxide 16 mmol/L (22-30); Chloride 119 mmol/L (98-107); Estimated Creatinine Clearance 61 ml/min; Glucose 80 mg/dl (70-99); Potassium 2.9 mmol/L (3.5-5.1); Sodium 142 mmol/L (135-145); Total Bilirubin 0.4 mg/dl (0.2-1.3); Total Protein 4.3 g/dl (6.3-8.2); eGFR > 60.00
--- NOTE | 2024-04-11 09:09 | PTOTSP ---
Dysphagia therapy
Patient presents with signs concerning for at least mild oral dysphagia felt to be due to acute illness/deconditioning. Patient has acute (i.e., intubation this admission, abdominal mass, deconditioning) on chronic risk factors for dysphagia (i.e.,
sarcoidosis, GERD). Dysphagia diet recommended for ease of mastication/oral clearance. Patient in agreement.
Recommend:
1. IDDSI Level 6 Soft/Bite Sized, IDDSI Level 0 Thin Liquids
2. Medications - as best tolerated
3. Strategies: upright to 90 degrees, small single sips/bites, slow rate, alternate sips/bites, remain upright for 30 minutes after PO intake as a reflux precaution
4. Oral care 3x daily
5. Dysphagia therapy follow up at the acute care level to determine if/when solid advancement appropriate and if further objective swallowing assessment warranted.
[2024-04-11 10:19] LABS: Magnesium 1.9 mg/dl (1.6-2.3)
[2024-04-11] MEDS: KCL 270 MEQ IV ×2 (10:19→18:17)
[2024-04-11 10:37] LABS: Iron 39 ug/dl (49-181)
[2024-04-11 10:46] LABS: Percent Saturation 19 % (20-50); Total Iron Binding Capacity 196 ug/dl (261-462)
--- NOTE | 2024-04-11 10:57 | PHA.VAN.FU ---
Vancomycin Assessment / Plan
- Assessment
Renal Function: SCR Decreasing
WBC's are: Stable
In the past 24 hrs, patient has been: Afebrile
Concomitant Antimicrobials: piperacillin/tazobactam
- Assessment - Therapeutic Drug Monitoring
Random Level: 10.1 - after 1000 mg dose yesterday
- Dosing Plan
Adjust Regimen to: will trial scheduled dosing 1250 mg q24h since SCR down to 1.1
- Monitoring Plan
No level(s) ordered at this time: consider levels after a couple doses ( perhaps trough only am 04/13)
- Follow Up
Pharmacy will continue to follow.
Vancomycin Follow UP
- -
Patient Age: 64
Patient Sex: Male
Vancomycin Day #: 3
Indication: Pulmonary/Respiratory
Requesting Provider: Dr. Blanco
Pertinent Antimicrobial Allergies:
NKDA
Height / Weight:
Height 5 ft 6 in
Actual Weight 68.606 kg
- Vital Signs / Lab Results
Temp Pulse Resp BP Pulse Ox
97.8 F 74 16 133/77 95
04/11/24 08:00 04/11/24 08:33 04/11/24 08:00 04/11/24 08:33 04/11/24 08:00
Lab Results - Hematology
04/09/24 04/10/24 04/11/24
05:38 06:23 07:05
WBC 13.4 H 11.2 H 11.2 H
Lab Results - Chemistry
04/09/24 04/10/24 04/11/24
05:38 06:23 07:05
BUN 19 21 H 15
Creatinine 1.2 1.3 1.1
Estimated Creat Clear 55 52 61
Albumin 2.4 L 2.2 L 2.0 L
04/09/24
16:20
Lactic Acid 0.9
Microbiology Results
04/09/24 17:26 Urine Culture - Final
Urine NO GROWTH
04/09/24 17:02 Blood Culture - Preliminary
Blood/Venous No Growth in 24 hours- Final report to follow
04/09/24 16:20 Blood Culture - Preliminary
Blood/Venous No Growth in 24 hours- Final report to follow
04/09/24 22:42 Nasal Screen MRSA (PCR) - Final
Nose MRSA not detected - performed by PCR methodology.
Therapeutic Drug Monitoring
Random Vancomycin 10.1 ug/ml 04/11/24 07:05
--- NOTE | 2024-04-11 11:38 | W.PN.CRS1 ---
Today's Communication / Plan
-
advance diet
I will reach out to GI regarding flex/sig
Assessment/Plan
-
64-year-old male with PMH of bipolar, insomnia, sarcoidosis, HLD, GERD who presents with a couple weeks of weakness, dizziness and falls at home.
CT showing a colonic obstruction at the descending colon with a mass concerning for cancer and appears to be invading the left kidney and tail of the pancreas, significant distention with the proximal colon and small bowel, cecum measuring between 9
to 10 cm. Concern for invasion into the kidney and distal pancreas, will likely need to confirm with MRI when more stabilized.
POD #7 exlap, diverting loop transverse colostomy; kept intubated POD 0 as precaution for recent possible aspiration, extubated POD 1. Transferred out of ICU POD#2
NGT out 04/07, tolerating clears. Passing large amounts of liquid stool/flatus via stoma. S/p paracentesis on 04/10.
WBC 11.2 from 11.2, vitals normal
-Speech reevaluated patient and patient today is cleared for IDDSI soft bite-size, thin liquids. Will order.
-Will hold off on TPN at this time
� Appreciate GI; he will need flexible sigmoidoscopy with biopsy of the mass when more stabilized post op; I have reached out to them to let them know he has been stabilized.
� CEA 102, will need eventual MRI given concern for invasion into kidney/pancreas
� Continue Heparin sq for DVT PPX
� Pain control with Tylenol 1gm, Tramadol 50mg & Dilaudid 1.0mg PRN
� ABX as per primary team
-Continue stoma roxann for now.
-Bladder scan if retaining, may need Neville replaced.
Subjective Data
Procedure
04/04/2024- Exploratory laparotomy, takedown of splenic flexure, loop transverse colostomy, partial omentectomy, TAP block
Subjective Data
Date of Service: April 11, 2024
Patient states that he feels 'okay'. He has no nausea or vomiting. His pain is controlled. He had to be straight cathed several times last night.
Objective Data
-
Vital Signs
Temp Pulse Resp BP Pulse Ox
97.8 F 74 16 133/77 95
04/11/24 08:00 04/11/24 08:33 04/11/24 08:00 04/11/24 08:33 04/11/24 08:00
Intake & Output
04/10/24 04/11/24 04/12/24
06:59 06:59 06:59
Intake Total 1755 / 1755 1705 / 1705
Output Total 2175 / 2175 2175 / 2175 150 / 150
Balance -420 / -420 -470 / -470 -150 / -150
Intake:
IV fluids (Total) 1300 / 1300 1250 / 1250
IV piggybacks 455 / 455 455 / 455
Output:
Liquid stool amount 1500 / 1500 625 / 625 150 / 150
Colostomy 1500 / 1500 625 / 625 150 / 150
Urine, Neville 675 / 675 1000 / 1000
Straight cath output 550 / 550
Lab Results
04/11/24 07:05
Physical Exam
-
General: No Acute Distress
Abdomen: Soft, Non Tender and Other (Colostomy is edematous with stoma roxann in place there is stool in the bag)
Skin: Warm and Dry
--- NOTE | 2024-04-11 11:49 | PTCARENOTE ---
Thakur catheter re-inserted due to inability to void on own, despite multiple trials(with urinal/while standing/with bathroom water running). Patient was bladder scanned for about 397cc around 10am, but 700cc of urine drained from thakur catheter.
--- NOTE | 2024-04-11 12:08 | W.PN.HOSP.TC ---
Addendum entered and electronically signed by Ajay Varela MD 04/11/24 16:49:
Patient seen and examined with resident
Discussed with patient's brother at the bedside
Discussed with nursing
Impression:
Bowel obstruction
Gastrointestinal hemorrhage
� Status post exploratory laparotomy, takedown of splenic flexure, loop transverse colostomy.
Intraoperative pathology negative for malignancy. CEA 102.
Postoperative ileus.
Trush
Acute blood loss anemia
Chronic microcytic anemia
Delirium.
Concern for aspiration
Minimal pelvic ascites
Acute urinary retention
CANELO, resolved.
Hypokalemia
Conditions prior to admission:
Sarcoidosis
Essential hypertension
GERD
Peripheral neuropathy
Bipolar disorder
Insomnia
Former smoker
Plan:
Status post exploratory laparotomy with colostomy.
CT scan findings reviewed showing left-sided colonic mass possibly involving pancreas and adjacent to the left kidney
Intraoperative pathology with inflammatory changes negative for malignancy. Tumor markers not elevated
Improving. Diet has been advanced to solids on 04/11.
Follow electrolytes
Wean off IV fluids as tolerates diet.
Wean off TPN
Additional workup with sigmoidoscopy tentatively on 03/15 repeat
Additional imaging with MRI of the abdomen.
Thrush, initiated on nystatin 04/11
Patient will need additional workup with imaging including MRI and CT scan for staging.
Follow-up sigmoidoscopy with biopsy.
Has minimal pelvic ascites not amenable for paracentesis
GI bleed
Acute anemia
Hemoglobin stabilized status post 4 units peak RBC transfused.
Delirium.
Mental status improved and close to baseline.
Monitor closely.
Reinstate preadmission regimen for bipolar disorder including olanzapine
Reinstate gabapentin.
Monitor his volume status closely.
Concern for aspiration.
Noted with elevated white count.
CT scan of the chest abdomen and pelvis 04/09 with chronic interstitial changes minimal pleural effusion.
Reinstated antibiotics vancomycin/Zosyn covering aspiration
Now with trending down white count.
Clinically less likely aspirating.
Monitor on antibiotics for another 24 to 48 hours.
Bedside speech and swallow evaluation, if concern with low ask for VSE.
Acute urine retention
Status post Thakur catheter placed.
Voiding trial on 04/10 with recurrent retention
Thakur catheter replaced on 04/11.
Original Note:
Today's Communication/Plan
-
Diet advanced to soft and bite-sized.
GI updated on current patient's stable status.
Thakur's catheter.
Consider bumping tamsulosin to 0.8mg from tomorrow.
Assessment / Plan
Assessment / Plan
Assessment-
64-year-old male presents to the ER reporting dizziness, lightheadedness, frequent falls x 6 months and constipation x 10 days. Diagnosed with colonic mass causing obstruction, s/p exploratory laparotomy.
Plan-
Acute on chronic blood loss anemia-GI bleed
CT abdomen pelvis-04/03-showed colonic obstruction at the level of superior aspect of the descending colon with associated colonic wall thickening mass extends to the tail of pancreas and adjacent left kidney, and findings suggest invasion of the
structures. Significant distention of the colon with air and fluid extending to the level of obstruction. There is also significant distention of the small bowel loops with air-fluid and contrast with administered oral contrast extending into the
small bowel.
S/p exploratory laparotomy, takedown of splenic flexure, loop transverse colostomy, partial omentectomy, T AP block.
Patient was able to withstand liquid diet, diet advanced to soft and bite-size it.
CT abdomen pelvis-04/09-Findings in the chest again seen compatible with emphysematous changes, reticular interstitial thickening and some central traction bronchiectasis at least in part correlating with known history of Sarcoidosis and chronic lung
disease.
Slightly increased small left pleural effusion with accompanying small left lower lobe consolidation compatible with atelectasis and/or pneumonia.
Tiny right pleural effusion with accompanying mild subsegmental atelectasis.
Moderate to large volume ascites in the abdomen and large volume ascites in the true pelvis, increased in comparison to prior CT.
Diverting left lower quadrant transverse colostomy performed in the interval since prior CT. Numerous loops of large mildly prominent and small bowel with fluid and air-fluid levels and at least relative wall thickening which could represent
enteritis. Unfortunately, without oral contrast, evaluation for discrete abnormal focal fluid collection is markedly limited and cannot be excluded. Similar to prior study is a presumed thickened mass/malignancy with central aeration involving the
descending colon situated anterior to the left kidney, somewhat similar to recent prior study.
Small volume free air is seen presumably the sequela of recent surgery. Recent perforation cannot be excluded.
S/p 4 units of PRBC.
Continue IV PPI.
Trend CBC.
CEA 102- pathology results-omentum with vascular congestion inflammation, no evidence of malignancy.
for MRI or CT staging when more stable.
Colorectal surgery-on board, appreciate inputs.
GI-on board, flexible sigmoidoscopy and biopsy, GI notified that patient has been stabilized.
Delirium-
Secondary to chronic alcohol use versus lorazepam versus baseline secondary to bipolar disorder..
Reduce lorazepam dosing to twice daily.
Continue thiamine supplementation.
Improved today, baseline has some delirium.
Ascites -
moderate to large ascitic fluid noted on CT scan.
PE findings - tympanic to percussion, and bowel sounds present.
Diagnostic tap ordered- minimal fluid.
Urinary Retention
thakur placed
Thakur removed-04/10/2023.
Cough
Chest [id number] pneumonia. Speech eval-no aspiration.
Video swallow study to rule out aspiration.
Sinus tachycardia
cont IVF
likely multifactorial: hypovolemia/dehydration
Increase metoprolol dosing.
echo - 04/10 -
Normal biventricular size and systolic function without regional wall motion
abnormality.
No significant valvular disease.
No prior study available for comparison.
Acute Hypoxemic Respiratory Failure -resolved.
Extubated 05/23, currently on room air.
Hypokalemia -
Potassium replacement today.
monitor and replete as needed.
CANELO
resolved
- renal US reviewed-with distended bladder no hydro
- post renal from colonic obstruction and dilation, s/p surgery
BUN and creatinine trending up.
Trend renal function.
- cont IVF
Leukocytosis
WBC count at 13. Leukocytosis improving. Temperature within normal limits.
blood cx showed no growth in 48 hours
Likely secondary to inflammation/neoplasm
No evidence of infection.
Hypermagnesemia
Resolved.
likely from MOM use and renal failure
Insomnia
Continue Ambien use
Peripheral Neuropathy
hold gabapentin
Bipolar disorder
cont zyprexa
Sarcoidosis
f/u as OP
stable
DVT proph-
Heparin.
Code- Full
Anticipated Discharge: > 48 hours
Subjective/Interval History
-
Date of Service: April 11, 2024
Able to tolerate oral feeds, diet advancement to soft and bite-sized.
Not able to pass urine overnight, patient reports that he has no sensation or urge to pass urine.
Straight catheter about midnight 2:50 AM with an output of 480 mL, no urine output afterward.
Objective Data
-
Labs:
Laboratory Results
04/11/24 04/11/24
07:05 15:00
WBC 11.2 H
Hgb 8.7 L
Hct 27.3 L
Plt Count 400
Sodium 142
Potassium 2.9 L Pending
Chloride 119 H
Carbon Dioxide 16 L
BUN 15
Creatinine 1.1
Glucose 80
Calcium 7.4 L
Total Bilirubin 0.4
AST 23
ALT < 10
Alkaline Phosphatase 79
Vital Signs:
Vital Signs
Temp Pulse Resp BP Pulse Ox
97.8 F 74 16 133/77 95
04/11/24 08:00 04/11/24 08:33 04/11/24 08:00 04/11/24 08:33 04/11/24 08:00
I&O
04/10/24 04/11/24 04/12/24
06:59 06:59 06:59
Intake Total 1755 / 1755 1705 / 1705
Output Total 2175 / 2175 2175 / 2175 150 / 150
Balance -420 / -420 -470 / -470 -150 / -150
Review of Systems
-
History Source: Patient
Constitutional: Reports Fatigue and Other (Little improvement in appetite.)
EENT: Reports No Symptoms Reported
Respiratory: Reports No Symptoms
Cardiac: Reports No Symptoms
Abdomen/GI: Reports Abdominal Pain (Denies abdominal pain.); Denies Nausea or Vomiting
Genitourinary: Reports Difficulty Voiding
Musculoskeletal: Reports No Symptoms
Neuro: Reports No Symptoms
Endocrine: Reports No Symptoms
Hematologic / Lymphatic: Reports No Symptoms
Physical Exam
-
General: Comfortable
HEENT: Normocephalic, Atraumatic, Moist Mucous Membranes and PERRLA
Respiratory: Clear to Auscultation (no wheezes, rales and ronchi.)
Cardiac: Regular Rhythm and S1/S2; Negative Murmur, Rub or Gallop
GI: Soft, Nontender, Distended (mild in the LUQ and LLQ), No Hepatosplenomegaly and Ostomy (Bilious output noted,Laparotmoy scar dressing intact, no oozing or bleeding or infection.)
Musculoskeletal: No Clubbing, No Cyanosis and No Edema
Neuro: AO x 3 and No Motor Deficits
Psych: Calm
[2024-04-11 12:52] LABS: Ferritin 42.4 ng/ml (17.9-464.0)
[2024-04-11] MEDS: MYCOSTATIN ORAL SUSPENSION 5 ML PO ×3 (13:14→20:59)
--- NOTE | 2024-04-11 13:29 | CM ---
Diet advanced to soft, bite sized. Recommended for flexible sigmoidoscopy with biopsies. Therapy recommending SNF. Preferences received from . Referrals forwarded.
--- NOTE | 2024-04-11 14:13 | W.PN.GI.CBS2 ---
Addendum entered and electronically signed by Daxa Harris MD 04/11/24 15:49:
I saw and examined the patient.
The JUNIOR WEB DEVELOPER's note was reviewed and I agree with the note.
Comment: This is a 64-year-old male who initially presented to the emergency room on 04/02 with significant microcytic anemia and a 50 pound weight loss and on imaging study was noted to have large bowel obstruction concerning for obstructing colonic
mass in the descending colon with extension to the tail of the pancreas and adjacent kidney he then had decompression with NG tube and went to the OR on 04/04 for ex lap takedown of splenic flexure, loop transverse colostomy for diversion, partial
omentectomy Path was negative for malignancy, CEA was elevated at 102. He did have a repeat CT on 04/09 which showed moderate to large ascites and was scheduled for paracenteses yesterday. He also had speech evaluation and has been cleared for soft
bite-size dysphagia diet with thin liquids. We are reconsulted for a sigmoidoscopy with biopsies. Will schedule for sigmoidoscopy in a.m. and will also need an eventual MRI since there was concern for invasion of mass to kidney and pancreas and
oncology referral after biopsies are obtained
Original Note:
Today's Communication / Plan
-
asked to reconsult to discuss flex and and biopsy
currently tolerating IDD6 diet
will review with Dr. Harris
pt has been cleared by surgery to proceed
consider eventual MRI for concern for invasion of mass to kidney and pancreas
Assessment / Plan
-
Pt is a 64yo with hx HTN, hypercholesterolemia, sarcoidosis, insomnia with onset of fatigue, falls, dizziness and lightheadedness over a few weeks. Per patient he also admits to recent intentional wt loss of 50 lbs over last 6 months. On
admission hbg 5.7 with MCV 65.3, WBC 14.8, Platelets 681, creat 2.4. Pt was noted with urinary retention and vomiting on admission with concern for for obstructing colonic mass with extension to tail of pancreas and and adjacent kidney. He had
NGT placed with drainage of large amount of fluid and went to OR 04/02 for exp lap takedown of splenic flexure, loop transverse colostomy, partial omentectomy. Path from Omentum with vascular congestion but no evidence for malignancy. Now asked for
reassessment for flex sig and biopsy. CEA 102.
04/[address] with chronic lung changes with sarcoidosis, left small effusion with LLL atelectasis vs PNA, moderate to large ascites, diverting ostomy prominent SB loops with thickening, possible enteritis, similar area mass/malignancy in
descending colon anterior to left kidney
-large bowel obstruction with concern for obstructing descending colon mass
-04/02 s/p exp lap with takedown of splenic flexure and loop transverse colostomy
-severe microcytic anemia(initial iron studies not accurate done post transfusion)with intermittent black stools prior to admission and constipation with distention
-abnormal CT with concern for colonic obstruction descending colon with mass with extension to tail of pancreas and left kidney
-ascites on repeat CT 04/09 '
-elevated CEA of 102
-CANELO on admission with some continued urinary retention
-recent weight loss- intentional per patient prior to admission
-recent falls/weakness prior to admission
-thrombocytosis
-leukocytosis
-hypokalemia
other medical problems:
-HTN
-hypercholesterolemia
-sarcoidosis
-insomnia
PLAN:
asked to reconsult to discuss flex and and biopsy
currently tolerating IDD6 diet
will review with Dr. Harris
pt has been cleared by surgery to proceed
consider eventual MRI for concern for invasion of mass to kidney and pancreas
Subjective
Subjective
Date of Service: April 11, 2024
reconsult for flex sig and biopsy 04/11 green stools in ostomy
Objective
Data Reviewed
Laboratory Data:
Laboratory Results
04/11/24 07:05
Laboratory Results
PT 17.8 Sec (11.4-14.6) H 04/05/24 03:53
INR 1.45 04/05/24 03:53
APTT 30.8 Sec (23.4-35.0) 04/04/24 19:10
Phosphorus 3.4 mg/dl (2.5-4.5) 04/04/24 19:10
Magnesium 1.9 mg/dl (1.6-2.3) 04/11/24 07:05
Total Bilirubin 0.4 mg/dl (0.2-1.3) 04/11/24 07:05
AST 23 U/L (17-59) 04/11/24 07:05
ALT < 10 U/L (0-50) 04/11/24 07:05
Alkaline Phosphatase 79 U/L (38-126) 04/11/24 07:05
Vital Signs and I&O:
Vital Signs
Temp Pulse Resp BP Pulse Ox
97.8 F 74 16 133/77 95
04/11/24 08:00 04/11/24 08:33 04/11/24 08:00 04/11/24 08:33 04/11/24 08:00
I&O
04/10/24 04/11/24 04/12/24
06:59 06:59 06:59
Intake Total 1755 / 1755 1705 / 1705
Output Total 2175 / 2175 2175 / 2175 300 / 300
Balance -420 / -420 -470 / -470 -300 / -300
Physical Exam
Physical Exam
HEENT: Anicteric and Moist mucous membranes
Cardiology: Normal Sinus Rhythm
Pulmonary: Clear
GI: Soft, Distended (minimal ), Non Tender and Other (ostomy with pink stoma with liquid dark brown stool in ostomy bag )
Extremities: No Edema
Neuro: Non Focal
[2024-04-11 15:22] LABS: Potassium 3.1 mmol/L (3.5-5.1)
[2024-04-11 15:41] VITALS: BP 134/72
[2024-04-11] MEDS: ZYPREXA 15 MG PO (20:59)
[2024-04-11] MEDS: NEURONTIN 300 MG PO (20:59)
[2024-04-11] MEDS: FLUSH (NSS) 2 FLUSH IV (21:00)
[2024-04-11 23:19] VITALS: BP 142/79
[2024-04-12] VITALS (11 sets, daily range): BP systolic 113–168; BP diastolic 67–145; PULSE 60; O2SAT 99; BMI 23.6
[2024-04-12] MEDS: THIAMINE INJECTION 255 MG IV ×2 (00:01→08:11)
[2024-04-12] MEDS: ZOSYN 100 IV ×2 (04:16→09:53)
--- NOTE | 2024-04-12 06:57 | PTCARENOTE ---
Tap water enema administered as ordered. Patient started leaking the enema during administration and after. No BM noted.
[2024-04-12] MEDS: FEOSOL 325 MG PO (08:10)
[2024-04-12] MEDS: FLOMAX 0.800000000000000044 MG PO (08:10)
[2024-04-12] MEDS: NSS (PRESERVATIVE FREE) 10 ML IV ×2 (08:10→20:40)
[2024-04-12] MEDS: MYCOSTATIN ORAL SUSPENSION 5 ML PO ×3 (08:10→20:40)
[2024-04-12] MEDS: PROTONIX IV 40 MG IV ×2 (08:10→20:40)
[2024-04-12] MEDS: LOPRESSOR 25 MG PO ×2 (08:10→20:39)
[2024-04-12] MEDS: HEPARIN 5000 UNITS SC ×3 (08:11→23:45)
--- NOTE | 2024-04-12 09:49 | W.PN.CRS1 ---
Today's Communication / Plan
-
flex sig by GI today
Assessment/Plan
-
64-year-old male with PMH of bipolar, insomnia, sarcoidosis, HLD, GERD who presents with a couple weeks of weakness, dizziness and falls at home.
CT showing a colonic obstruction at the descending colon with a mass concerning for cancer and appears to be invading the left kidney and tail of the pancreas, significant distention with the proximal colon and small bowel, cecum measuring between 9
to 10 cm. Concern for invasion into the kidney and distal pancreas, will likely need to confirm with MRI when more stabilized.
POD #8 exlap, diverting loop transverse colostomy; kept intubated POD 0 as precaution for recent possible aspiration, extubated POD 1. Transferred out of ICU POD#2
NGT out 04/07, tolerating clears. Passing large amounts of liquid stool/flatus via stoma. S/p paracentesis on 04/10.
WBC pending, vitals normal
- NPO for flex sig. Okay to restart IDDSI soft bite-size, thin liquids from our perspective when completed.
- Will hold off on TPN at this time
� Appreciate GI; for flex sig today.
� CEA 102, will need eventual MRI given concern for invasion into kidney/pancreas
� Continue Heparin sq for DVT PPX
� Pain control with Tylenol 1gm, Tramadol 50mg & Dilaudid 1.0mg PRN
� ABX as per primary team
- Continue stoma roxann for now.
- Thakur placed back (second time) due to retention. Recommend urology consult.
Subjective Data
Procedure
04/04/2024- Exploratory laparotomy, takedown of splenic flexure, loop transverse colostomy, partial omentectomy, TAP block
Subjective Data
Date of Service: April 12, 2024
Patient states he has no complaints. He denies nausea or vomiting. He is producing stool in his bag. He tolerated a diet yesterday. He retained urine and a thakur back in.
Objective Data
-
Vital Signs
Temp Pulse Resp BP Pulse Ox
97.9 F 69 16 137/68 97
04/12/24 07:05 04/12/24 08:10 04/12/24 07:05 04/12/24 08:10 04/12/24 07:05
Intake & Output
04/11/24 04/12/24 04/13/24
06:59 06:59 06:59
Intake Total 1705 / 1705 605 / 605
Output Total 2175 / 2175 1974 / 1974
Balance -470 / -470 -1370 / -1370
Intake:
IV fluids (Total) 1250 / 1250
IV piggybacks 455 / 455 605 / 605
Output:
Liquid stool amount 625 / 625 525 / 525
Colostomy 625 / 625 525 / 525
Urine, Thakur 1000 / 1000 1450 / 1450
Straight cath output 550 / 550
Physical Exam
-
General: No Acute Distress and AOx3
Abdomen: Soft, Non Distended, Non Tender and Other (colostomy warm and pink with stoma roxann in place)
Skin: Warm and Dry
Wound: Dressing in Place
[2024-04-12 10:04] LABS: % Basophils 0.5 % (0-2); % Eosinophils 6.5 % (0-6); % Lymphocytes 10.4 % (20.5-51.1); % Monocytes 5.2 % (1.7-9.3); % Neutrophils 75.4 % (42.2-75.2); Absolute Basophils 0.1 10^3/uL (0-0.2); Absolute Eosinophils 0.8 10^3/uL (0-0.7); Absolute Immature Granulocytes 0.2 10^3/uL (0-0.05); Absolute Lymphocytes 1.2 10^3/uL (1.2-3.4); Absolute Monocytes 0.6 10^3/uL (0.1-0.6); Absolute Neutrophils 8.9 10^3/uL (1.4-6.5); Hematocrit 28.1 % (39.0-52.0); Hemoglobin 8.6 g/dL (13.0-18.0); Mean Corp Hgb Conc. 30.6 g/dL (33.0-37.0); Mean Corpuscular Hgb 22.8 pg (27.0-31.0); Mean Corpuscular Volume 74.5 fL (80.0-94.0); Mean Platelet Volume 8.8 fL (7.4-10.4); Nucleated Red Blood Cells % 0 % (-); Platelet Count 387 10^3/uL (130-400); Red Blood Cell Count 3.77 10^6/uL (4.70-6.10); Red Cell Dist. Width 25.3 % (11.5-14.5); White Blood Cell Count 11.8 10^3/uL (4.8-10.8)
--- NOTE | 2024-04-12 10:20 | W.PN.HOSP.TC ---
Addendum entered and electronically signed by jAay Varela MD 04/12/24 16:33:
Patient seen and examined with resident
Discussed with patient's brother at the bedside
Discussed with nursing
Impression:
Bowel obstruction
Gastrointestinal hemorrhage
� Status post exploratory laparotomy, takedown of splenic flexure, loop transverse colostomy.
Intraoperative pathology negative for malignancy. CEA 102.
Postoperative ileus.
Trush
Acute blood loss anemia
Chronic microcytic anemia
Delirium.
Concern for aspiration
Minimal pelvic ascites
Acute urinary retention
CANELO, resolved.
Hypokalemia
Conditions prior to admission:
Sarcoidosis
Essential hypertension
GERD
Peripheral neuropathy
Bipolar disorder
Insomnia
Former smoker
Plan:
Status post exploratory laparotomy with colostomy.
CT scan findings reviewed showing left-sided colonic mass possibly involving pancreas and adjacent to the left kidney
Intraoperative pathology with inflammatory changes negative for malignancy. Tumor markers not elevated
Improving. Diet has been advanced to solids on 04/11.
Follow electrolytes
Wean off IV fluids as tolerates diet.
Wean off TPN
Sigmoidoscopy 04/12 with likely malignant and obstructive tumor in descending colon pending biopsy.
Additional imaging with MRI of the abdomen.
Thrush, initiated on nystatin 04/11
Patient will need additional workup with imaging including MRI and CT scan for staging.
Follow-up sigmoidoscopy with biopsy.
Has minimal pelvic ascites not amenable for paracentesis
GI bleed
Acute anemia
Hemoglobin stabilized status post 4 units peak RBC transfused.
Delirium.
Mental status improved and close to baseline.
Monitor closely.
Reinstate preadmission regimen for bipolar disorder including olanzapine
Reinstate gabapentin.
Monitor his volume status closely.
Concern for aspiration.
Noted with elevated white count.
CT scan of the chest abdomen and pelvis 04/09 with chronic interstitial changes minimal pleural effusion.
Reinstated antibiotics vancomycin/Zosyn covering aspiration
Now with trending down white count.
Clinically less likely aspirating.
Monitor on antibiotics for another 24 to 48 hours.
Bedside speech and swallow evaluation, if concern with low ask for VSE.
Acute urine retention
Status post Thakur catheter placed.
Voiding trial on 04/10 with recurrent retention
Thakur catheter replaced on 04/11.
Original Note:
Today's Communication/Plan
-
Flexible sigmoidoscopy
IVF maintenance.
potassium supplementation
Assessment / Plan
Assessment / Plan
Assessment-
64-year-old male presents to the ER reporting dizziness, lightheadedness, frequent falls x 6 months and constipation x 10 days. Diagnosed with colonic mass causing obstruction, s/p exploratory laparotomy.
Plan-
Acute on chronic blood loss anemia-GI bleed
CT abdomen pelvis-04/03-showed colonic obstruction at the level of superior aspect of the descending colon with associated colonic wall thickening mass extends to the tail of pancreas and adjacent left kidney, and findings suggest invasion of the
structures. Significant distention of the colon with air and fluid extending to the level of obstruction. There is also significant distention of the small bowel loops with air-fluid and contrast with administered oral contrast extending into the
small bowel.
S/p exploratory laparotomy, takedown of splenic flexure, loop transverse colostomy, partial omentectomy, T AP block.
Patient was able to withstand liquid diet, diet advanced to soft and bite-size it.
CT abdomen pelvis-04/09-Findings in the chest again seen compatible with emphysematous changes, reticular interstitial thickening and some central traction bronchiectasis at least in part correlating with known history of Sarcoidosis and chronic lung
disease.
Slightly increased small left pleural effusion with accompanying small left lower lobe consolidation compatible with atelectasis and/or pneumonia.
Tiny right pleural effusion with accompanying mild subsegmental atelectasis.
Moderate to large volume ascites in the abdomen and large volume ascites in the true pelvis, increased in comparison to prior CT.
Diverting left lower quadrant transverse colostomy performed in the interval since prior CT. Numerous loops of large mildly prominent and small bowel with fluid and air-fluid levels and at least relative wall thickening which could represent
enteritis. Unfortunately, without oral contrast, evaluation for discrete abnormal focal fluid collection is markedly limited and cannot be excluded. Similar to prior study is a presumed thickened mass/malignancy with central aeration involving the
descending colon situated anterior to the left kidney, somewhat similar to recent prior study.
Small volume free air is seen presumably the sequela of recent surgery. Recent perforation cannot be excluded.
S/p 4 units of PRBC.
Continue IV PPI.
Trend CBC.
CEA 102- pathology results-omentum with vascular congestion inflammation, no evidence of malignancy.
for MRI or CT staging when more stable.
Colorectal surgery-on board, appreciate inputs.
GI-on board, flexible sigmoidoscopy today.
Delirium-
Secondary to chronic alcohol use versus lorazepam versus baseline secondary to bipolar disorder..
Reduce lorazepam dosing to twice daily.
Continue thiamine supplementation.
Improved today, baseline has some delirium.
Ascites -
moderate to large ascitic fluid noted on CT scan.
PE findings - tympanic to percussion, and bowel sounds present.
Diagnostic tap ordered- minimal fluid.
Urinary Retention
thakur placed
Thakur removed-04/10/2023.
Cough
Chest [id number] pneumonia. Speech eval-no aspiration.
Video swallow study to rule out aspiration.
Sinus tachycardia
cont IVF
likely multifactorial: hypovolemia/dehydration
Increase metoprolol dosing.
echo - 04/10 -
Normal biventricular size and systolic function without regional wall motion
abnormality.
No significant valvular disease.
No prior study available for comparison.
Acute Hypoxemic Respiratory Failure -resolved.
Extubated 04/05, currently on room air.
Hypokalemia -
Potassium replacement today.
monitor and replete as needed.
CANELO
resolved
- renal US reviewed-with distended bladder no hydro
- post renal from colonic obstruction and dilation, s/p surgery
BUN and creatinine trending up.
Trend renal function.
- cont IVF
Leukocytosis
WBC count at 13. Leukocytosis improving. Temperature within normal limits.
blood cx showed no growth in 48 hours
Likely secondary to inflammation/neoplasm
No evidence of infection.
Hypermagnesemia
Resolved.
likely from MOM use and renal failure
Insomnia
Continue Ambien use
Peripheral Neuropathy
hold gabapentin
Bipolar disorder
cont zyprexa
Sarcoidosis
f/u as OP
stable
DVT proph-
Heparin.
Code- Full
Anticipated Discharge: > 48 hours
Subjective/Interval History
-
Date of Service: April 12, 2024
No events overnight.
Objective Data
-
Labs:
Laboratory Results
04/12/24
09:38
WBC 11.8 H
Hgb 8.6 L
Hct 28.1 L
Plt Count 387
Sodium Pending
Potassium Pending
Chloride Pending
Carbon Dioxide Pending
BUN Pending
Creatinine Pending
Glucose Pending
Calcium Pending
Total Bilirubin Pending
AST Pending
ALT Pending
Alkaline Phosphatase Pending
Vital Signs:
Vital Signs
Temp Pulse Resp BP Pulse Ox
97.9 F 69 16 137/68 97
04/12/24 07:05 04/12/24 08:10 04/12/24 07:05 04/12/24 08:10 04/12/24 07:05
I&O
04/11/24 04/12/24 04/13/24
06:59 06:59 06:59
Intake Total 1705 / 1705 605 / 605
Output Total 2175 / 2175 1974
Balance -470 / -470 -1370 / -1370
Review of Systems
-
History Source: Patient
Constitutional: Reports Fatigue
Respiratory: Reports No Symptoms
Cardiac: Reports No Symptoms
Abdomen/GI: Reports No Symptoms
Breast: Reports No Symptoms
Genitourinary: Reports No Symptoms
Musculoskeletal: Reports No Symptoms
Skin: Reports No Symptoms
Neuro: Reports No Symptoms
Endocrine: Reports No Symptoms
Hematologic / Lymphatic: Reports No Symptoms
Allergy / Immunology: Reports No Symptoms
Physical Exam
-
General: Well Developed, Well Nourished and No Apparent Distress
HEENT: Normocephalic and Atraumatic
Respiratory: Clear to Auscultation; Negative Wheezes, Rales or Rhonchi
Cardiac: Regular Rhythm and S1/S2; Negative Murmur, Rub or Gallop
GI: Soft, Nontender, Nondistended, Normal Bowel Sounds and Ostomy (output brown in color.); Negative Organomegaly
Genito-urinary: No Costovertebral Tender
Musculoskeletal: No Clubbing, No Cyanosis and No Edema
Skin: Dry
Neuro: AO x 3 and No Motor Deficits
Psych: Calm
[2024-04-12 10:52] LABS: ALT (SGPT) < 10 U/L (0-50); AST (SGOT) 18 U/L (17-59); Albumin 1.9 g/dl (3.5-5.0); Alkaline Phosphatase 71 U/L (38-126); Blood Urea Nitrogen 10 mg/dl (9-20); Calcium 7.5 mg/dl (8.4-10.2); Carbon Dioxide 16 mmol/L (22-30); Chloride 118 mmol/L (98-107); Estimated Creatinine Clearance 56 ml/min; Glucose 83 mg/dl (70-99); Potassium 3.1 mmol/L (3.5-5.1); Sodium 138 mmol/L (135-145); Total Bilirubin 0.5 mg/dl (0.2-1.3); Total Protein 4.2 g/dl (6.3-8.2); eGFR > 60.00
[2024-04-12] MEDS: KCL 270 MEQ IV (12:03)
[2024-04-12] MEDS: MYCOSTATIN ORAL SUSPENSION PO (14:30)
--- NOTE | 2024-04-12 15:11 | CM ---
Flex Sigmoid completed with biopsy on this date. Therapy recommendation remains STR. Referrals have previously been forwarded.
[2024-04-12] MEDS: NEURONTIN 300 MG PO (20:39)
[2024-04-12] MEDS: ZYPREXA 15 MG PO (20:41)
[2024-04-13 03:19] VITALS: BP 139/74
[2024-04-13 05:38] VITALS: BMI 23.5
--- NOTE | 2024-04-13 06:06 | W.PN.GI.CBS2 ---
Today's Communication / Plan
-
See assessment and plan for details.
Assessment / Plan
-
1. Large bowel obstruction: Secondary to descending colon mass, status postbiopsy and tattoo yesterday, status post diverting colostomy, overall doing well. Will follow-up on biopsy results, continue ongoing care per colorectal surgery and
oncology evaluation. Will sign off for now, please call back with any further questions.
Subjective
Subjective
Date of Service: April 13, 2024
Patient feeling okay, no new abdominal pain, nausea or vomiting, no fever or chills.
Objective
Data Reviewed
Laboratory Data:
Laboratory Results
PT 17.8 Sec (11.4-14.6) H 04/05/24 03:53
INR 1.45 04/05/24 03:53
APTT 30.8 Sec (23.4-35.0) 04/04/24 19:10
Phosphorus 3.4 mg/dl (2.5-4.5) 04/04/24 19:10
Magnesium 1.9 mg/dl (1.6-2.3) 04/11/24 07:05
Total Bilirubin 0.5 mg/dl (0.2-1.3) 04/12/24 09:38
AST 18 U/L (17-59) 04/12/24 09:38
ALT < 10 U/L (0-50) 04/12/24 09:38
Alkaline Phosphatase 71 U/L (38-126) 04/12/24 09:38
Vital Signs and I&O:
Vital Signs
Temp Pulse Resp BP Pulse Ox
97.7 F 69 18 139/74 96
04/13/24 03:19 04/13/24 03:19 04/13/24 03:19 04/13/24 03:19 04/13/24 03:19
I&O
04/11/24 04/12/24 04/13/24
06:59 06:59 06:59
Intake Total 1705 / 1705 605 / 605 1080 / 1080
Output Total 5 / 5 1974 / 260
Balance -470 / -470 -1370 / -1370 -1520 / -1520
Physical Exam
Physical Exam
General: NAD
Abdomen: normal bowel sounds, soft, no tenderness, no masses or bruits, no ascites, green stool in left-sided ostomy
[2024-04-13 06:27] LABS: % Basophils 0.6 % (0-2); % Eosinophils 6.4 % (0-6); % Immature Granulocytes 2.3 % (0-0.5); % Lymphocytes 15.2 % (20.5-51.1); % Monocytes 5.9 % (1.7-9.3); % Neutrophils 69.6 % (42.2-75.2); Absolute Basophils 0.1 10^3/uL (0-0.2); Absolute Eosinophils 0.8 10^3/uL (0-0.7); Absolute Immature Granulocytes 0.3 10^3/uL (0-0.05); Absolute Lymphocytes 1.8 10^3/uL (1.2-3.4); Absolute Monocytes 0.7 10^3/uL (0.1-0.6); Absolute Neutrophils 8.3 10^3/uL (1.4-6.5); Hematocrit 29.4 % (39.0-52.0); Mean Corp Hgb Conc. 30.6 g/dL (33.0-37.0); Mean Corpuscular Hgb 23.1 pg (27.0-31.0); Mean Corpuscular Volume 75.4 fL (80.0-94.0); Mean Platelet Volume 9.1 fL (7.4-10.4); Nucleated Red Blood Cells % 0 % (-); Platelet Count 409 10^3/uL (130-400); Red Cell Dist. Width 25.7 % (11.5-14.5)
[2024-04-13 07:05] VITALS: BP 138/72
[2024-04-13 07:07] LABS: ALT (SGPT) < 10 U/L (0-50); AST (SGOT) 16 U/L (17-59); Albumin 1.9 g/dl (3.5-5.0); Alkaline Phosphatase 72 U/L (38-126); Blood Urea Nitrogen 8 mg/dl (9-20); Calcium 7.5 mg/dl (8.4-10.2); Carbon Dioxide 16 mmol/L (22-30); Chloride 119 mmol/L (98-107); Estimated Creatinine Clearance 61 ml/min; Glucose 75 mg/dl (70-99); Potassium 3.1 mmol/L (3.5-5.1); Sodium 141 mmol/L (135-145); Total Bilirubin 0.2 mg/dl (0.2-1.3); Total Protein 4.3 g/dl (6.3-8.2); Triglycerides 172 mg/dl (10-149); eGFR > 60.00
[2024-04-13] MEDS: FLOMAX 0.800000000000000044 MG PO (08:29)
[2024-04-13] MEDS: FEOSOL 325 MG PO (08:29)
[2024-04-13] MEDS: VITAMIN B1 100 MG PO ×2 (08:29→20:02)
[2024-04-13] MEDS: LOPRESSOR 25 MG PO ×2 (08:30→20:03)
[2024-04-13] MEDS: HEPARIN 5000 UNITS SC ×2 (08:30→17:22)
[2024-04-13] MEDS: MYCOSTATIN ORAL SUSPENSION 5 ML PO ×4 (08:30→20:03)
[2024-04-13] MEDS: NSS (PRESERVATIVE FREE) 10 ML IV ×2 (08:30→20:02)
[2024-04-13] MEDS: PROTONIX IV 40 MG IV ×2 (08:30→20:02)
--- NOTE | 2024-04-13 08:43 | W.PN.HOSP.TC ---
Addendum entered and electronically signed by Ajay Varela MD 04/13/24 14:19:
Patient seen and examined with resident
Discussed with patient's brother at the bedside
Discussed with nursing
Impression:
Bowel obstruction
Gastrointestinal hemorrhage
� Status post exploratory laparotomy, takedown of splenic flexure, loop transverse colostomy.
Intraoperative pathology negative for malignancy. CEA 102.
Postoperative ileus.
Trush
Acute blood loss anemia
Chronic microcytic anemia
Delirium.
Concern for aspiration
Minimal pelvic ascites
Acute urinary retention
CANELO, resolved.
Hypokalemia
Conditions prior to admission:
Sarcoidosis
Essential hypertension
GERD
Peripheral neuropathy
Bipolar disorder
Insomnia
Former smoker
Plan:
Status post exploratory laparotomy with colostomy.
CT scan findings reviewed showing left-sided colonic mass possibly involving pancreas and adjacent to the left kidney
Intraoperative pathology with inflammatory changes negative for malignancy. Tumor markers not elevated
Improving. Diet has been advanced to solids on 04/11.
Follow electrolytes
Wean off IV fluids as tolerates diet.
Wean off TPN
Sigmoidoscopy 04/12 with likely malignant and obstructive tumor in descending colon pending biopsy.
Plan is to follow-up with oncology, colorectal surgery/GI as outpatient. Additional imaging to be determined upon biopsy results available.
Thrush, initiated on nystatin 04/11
Patient will need additional workup with imaging including MRI and CT scan for staging.
Follow-up sigmoidoscopy with biopsy.
Has minimal pelvic ascites not amenable for paracentesis
GI bleed
Acute anemia
Hemoglobin stabilized status post 4 units peak RBC transfused.
Delirium.
Mental status improved and close to baseline.
Monitor closely.
Reinstate preadmission regimen for bipolar disorder including olanzapine
Reinstate gabapentin.
Monitor his volume status closely.
Concern for aspiration.
Noted with elevated white count.
CT scan of the chest abdomen and pelvis 04/09 with chronic interstitial changes minimal pleural effusion.
Reinstated antibiotics vancomycin/Zosyn covering aspiration
Now with trending down white count.
Clinically less likely aspirating.
Monitor on antibiotics for another 24 to 48 hours.
Bedside speech and swallow evaluation, if concern with low ask for VSE.
Acute urine retention
Status post Thakur catheter placed.
Voiding trial on 04/10 with recurrent retention
Thakur catheter replaced on 04/11.
Urology consult pending.
Disposition: Physical therapy assessment/rehab placement.
Original Note:
Today's Communication/Plan
-
Potassium supplementation.
Oncology consult.
Discharge planning.
Assessment / Plan
Assessment / Plan
Assessment-
64-year-old male presents to the ER reporting dizziness, lightheadedness, frequent falls x 6 months and constipation x 10 days. Diagnosed with colonic mass causing obstruction, s/p exploratory laparotomy.
Plan-
Acute on chronic blood loss anemia-GI bleed
CT abdomen pelvis-04/03-showed colonic obstruction at the level of superior aspect of the descending colon with associated colonic wall thickening mass extends to the tail of pancreas and adjacent left kidney, and findings suggest invasion of the
structures. Significant distention of the colon with air and fluid extending to the level of obstruction. There is also significant distention of the small bowel loops with air-fluid and contrast with administered oral contrast extending into the
small bowel.
S/p exploratory laparotomy, takedown of splenic flexure, loop transverse colostomy, partial omentectomy, T AP block.
Patient was able to withstand liquid diet, diet advanced to soft and bite-size it.
CT abdomen pelvis-04/09-Findings in the chest again seen compatible with emphysematous changes, reticular interstitial thickening and some central traction bronchiectasis at least in part correlating with known history of Sarcoidosis and chronic lung
disease.
Slightly increased small left pleural effusion with accompanying small left lower lobe consolidation compatible with atelectasis and/or pneumonia.
Tiny right pleural effusion with accompanying mild subsegmental atelectasis.
Moderate to large volume ascites in the abdomen and large volume ascites in the true pelvis, increased in comparison to prior CT.
Diverting left lower quadrant transverse colostomy performed in the interval since prior CT. Numerous loops of large mildly prominent and small bowel with fluid and air-fluid levels and at least relative wall thickening which could represent
enteritis. Unfortunately, without oral contrast, evaluation for discrete abnormal focal fluid collection is markedly limited and cannot be excluded. Similar to prior study is a presumed thickened mass/malignancy with central aeration involving the
descending colon situated anterior to the left kidney, somewhat similar to recent prior study.
Small volume free air is seen presumably the sequela of recent surgery. Recent perforation cannot be excluded.
S/p 4 units of PRBC.
Continue IV PPI.
Trend CBC.
CEA 102- pathology results-omentum with vascular congestion inflammation, no evidence of malignancy.
for MRI or CT staging when more stable.
Colorectal surgery-on board, appreciate inputs.
GI-on board, flexible sigmoidoscopy -obstructing descending colon mass, s/p biopsy, results pending.
Oncology consult placed.
Microcytic anemia-
Iron deficiency.
Oral supplementation of ferrous sulfate started.
Secondary to GI losses, nutritional deficiency.
Delirium-
Secondary to chronic alcohol use versus lorazepam versus baseline secondary to bipolar disorder..
Reduce lorazepam dosing to twice daily.
Continue thiamine supplementation.
Improved today, baseline has some delirium.
Ascites -
moderate to large ascitic fluid noted on CT scan.
PE findings - tympanic to percussion, and bowel sounds present.
Diagnostic tap ordered- minimal fluid.
Urinary Retention
thakur placed
Thakur removed-04/10/2023.
Cough
Chest [id number] pneumonia. Speech eval-no aspiration.
Video swallow study to rule out aspiration.
Sinus tachycardia
cont IVF
likely multifactorial: hypovolemia/dehydration
Increase metoprolol dosing.
echo - 04/10 -
Normal biventricular size and systolic function without regional wall motion
abnormality.
No significant valvular disease.
No prior study available for comparison.
Acute Hypoxemic Respiratory Failure -resolved.
Extubated 04/05, currently on room air.
Hypokalemia -
Potassium replacement today.
monitor and replete as needed.
CANELO
resolved
- renal US reviewed-with distended bladder no hydro
- post renal from colonic obstruction and dilation, s/p surgery
BUN and creatinine trending up.
Trend renal function.
- cont IVF
Leukocytosis
WBC count at 13. Leukocytosis improving. Temperature within normal limits.
blood cx showed no growth in 48 hours
Likely secondary to inflammation/neoplasm
No evidence of infection.
Hypermagnesemia
Resolved.
likely from MOM use and renal failure
Insomnia
Continue Ambien use
Peripheral Neuropathy
hold gabapentin
Bipolar disorder
cont zyprexa
Sarcoidosis
f/u as OP
stable
DVT proph-
Heparin.
Code- Full
Anticipated Discharge: > 48 hours
Subjective/Interval History
-
Date of Service: April 13, 2024
Reports no complaints.
Objective Data
-
Labs:
Laboratory Results
04/13/24
05:24
WBC 12.0 H
Hgb 9.0 L
Hct 29.4 L
Plt Count 409 H
Sodium 141
Potassium 3.1 L
Chloride 119 H
Carbon Dioxide 16 L
BUN 8 L
Creatinine 1.1
Glucose 75
Calcium 7.5 L
Total Bilirubin 0.2
AST 16 L
ALT < 10
Alkaline Phosphatase 72
Vital Signs:
Vital Signs
Temp Pulse Resp BP Pulse Ox
97.7 F 67 18 138/72 96
04/13/24 03:19 04/13/24 08:30 04/13/24 03:19 04/13/24 08:30 04/13/24 03:19
I&O
04/12/24 04/13/24 04/14/24
06:59 06:59 06:59
Intake Total 605 / 605 1080 / 1080
Output Total 1974 2600 / 2600
Balance -1370 / -1370 -1520 / -1520
Review of Systems
-
History Source: Patient
All other systems: Reviewed and negative
Constitutional: Reports No Symptoms
Respiratory: Reports No Symptoms
Cardiac: Reports No Symptoms
Abdomen/GI: Reports No Symptoms
Genitourinary: Reports No Symptoms and Other (Thakur catheter)
Musculoskeletal: Reports No Symptoms
Neuro: Reports No Symptoms
Endocrine: Reports No Symptoms
Hematologic / Lymphatic: Reports No Symptoms
Physical Exam
-
General: Comfortable (on room air)
HEENT: Normocephalic, Atraumatic and Moist Mucous Membranes
Respiratory: Clear to Auscultation (No wheezes, rales and ronchi.)
Cardiac: Regular Rhythm and S1/S2; Negative Murmur, Rub or Gallop
GI: Soft, Nontender, Nondistended, Normal Bowel Sounds and Ostomy (output present)
Genito-urinary: No Costovertebral Tender
Musculoskeletal: No Clubbing, No Cyanosis and No Edema
Neuro: AO x 3 and No Motor Deficits
Psych: Calm
--- NOTE | 2024-04-13 10:32 | CON.ONC ---
Addendum entered and electronically signed by Beka Vail MD 04/13/24 14:31:
04/13/24
patient seen and evaluated and agree w/ LANGUAGE THERAPIST note and plan as outlined
-await pathology
-additional discussion will be had about potential tx options once pathology available
Will continue to follow with you.
Original Note:
Impression
Impression
Large bowel obstruction secondary to descending colon mass s/p ex lap, diverting colostomy
Profound microcytic anemia
Iron deficiency
Acute/chronic constipation
Elevated CEA level
Recent 50lb weight loss
ETOH cessation (2022)
Recent falls
Hx Bipolar (Zyprexa)
Abdominal ascites
Urinary retention requiring thakur catheter
Acute delirium (improved)
Leukocytosis
Hypokalemia
Hypocalcemia
Weakness
Plan
Plan
04/13 WBC 12, Hgb 9.0, Hct 29.4, PLT 409
s/p 4units PRBCs
Transfuse as needed to maintain Hgb >7.5, PLT >20
CBC w/ diff daily
04/11 iron 39, %sat 19, ferritin 42.4, TIBC 196
Iron repletion with IV iron recommended due to issues with constipation
Additional labs ordered and remain pending
Urology consult - acute urinary retention
Await pathology report of colon mass to determine next steps in care
Supportive post-operative care, OOB activity with PT/OT
WOCN following
Diet as tolerated
Pain management
We will follow. Await pathology. Discharge planning to SNF.
Patient History
History of Present Illness
Heber Zheng is a 64 year old male who presented to the ER 04/02 with reports of weakness, dizziness, falls, and constipation x3-4 weeks. He endorses a recent 50lb weight loss. He reports he quit drinking beer ~6 months ago in an attempt to lose
weight. He reported worsening constipation and abdominal bloating requiring magnesium citrate to produce BM. He reported producing one BM per week. His lab work in the ER showed significant microcytic anemia with Hgb 5.7. Imaging revealed large
bowel obstruction with concerns for an obstructing colon mass of the descending colon extending into the tail of the pancreas and adjacent kidney. Thakur catheter was placed due to inability to urinate. He has never had a colonoscopy. He had NGT
placed for decompression and was taken to the OR 04/[address] Bermudez for ex lap, takedown of splenic flexure, loop transverse colostomy diversion, and partial omentectomy. Pathology report of omentum was negative for malignancy, however, CEA
elevated at 102. Pathology report of descending colon mass remains pending.
Past-Medical/Surgical History
Hypercholesterolemia
Hypertension
Sarcoidosis
Bipolar disorder (hx CANELO on [place])
Ankle surgery
Insomnia
GERD
Former smoker (quit 40 years ago)
Prior ETOH abuse (quit 2022)
Patient Medication
�Medication �Instructions �Recorded �Confirmed �Last Taken �Type
calcium carbonate (Tums) 200 mg PO QIDPRN PRN gerd 04/02/24 04/02/24 03/31/24 History
gabapentin 300 mg capsule 300 mg PO HS Pain 04/02/24 04/02/24 04/01/24 History
magnesium hydroxide 400 mg/5 mL 2,400 mg PO DAILYPRN PRN 04/02/24 04/02/24 04/02/24 History
oral suspension (Milk of Magnesia) constipation/gerd
naproxen sodium 220 mg tablet 220 mg PO BIDPRN PRN mild pain 04/02/24 04/02/24 04/01/24 History
(Aleve)
olanzapine 15 mg tablet 15 mg PO HS Mental Health/Anxiety 04/02/24 04/02/24 04/01/24 History
zolpidem 10 mg tablet (Ambien) 10 mg PO HS Sleep 04/02/24 04/02/24 04/01/24 History
Active Medications
Generic Name Dose Route Start Last Admin
Trade Name Freq PRN Reason Stop Dose Admin
Acetaminophen 1,000 mg 04/08/24 09:17
Acetaminophen 500 Mg Tablet PO 05/06/24 09:16
Q6HPRN PRN
mild pain
Ferrous Sulfate 325 mg 04/12/24 08:00 04/13/24 08:29
Ferrous Sulfate 325 Mg Tablet PO 05/10/24 07:59 325 mg
DAILY LENIN Administration
Gabapentin 300 mg 04/10/24 22:00 04/12/24 20:39
Gabapentin 300 Mg Capsule PO 05/08/24 21:59 300 mg
HS LENIN Administration
Heparin Sodium 5,000 units 04/06/24 16:00 04/13/24 08:30
Heparin 5,000 Units/Ml 1 Ml Vial SC 05/04/24 15:59 5,000 units
Q8 LENIN Administration
Hydromorphone HCl 0.5 mg 04/09/24 14:19
Hydromorphone 0.5 Mg/0.5 Ml Syringe IV 04/23/24 14:18
Q4HPRN PRN
moderate pain
Hydromorphone HCl 1 mg 04/09/24 14:19
Hydromorphone 1 Mg/Ml Carpuject IV 04/23/24 14:18
Q4HPRN PRN
severe pain
Levalbuterol HCl 1.25 mg 04/03/24 23:52 04/04/24 07:31
Levalbuterol 1.25 Mg/3 Ml Ampul INH 1.25 mg
R Q6HPRN PRN Administration
sob/wheeze
Protocol
Lorazepam 0.5 mg 04/09/24 10:43
Lorazepam 2 Mg/Ml Vial IV 05/07/24 10:41
[id number] PRN
anxiety
Metoprolol Tartrate 25 mg 04/09/24 20:00 04/13/24 08:30
Metoprolol 25 Mg Regular Release Tablet PO 05/07/24 19:59 25 mg
BID LENIN Administration
Nystatin 5 ml 04/11/24 13:00 04/13/24 08:30
Nystatin Oral Suspension 500,000 Units/5 Ml PO 05/09/24 12:59 5 ml
QID LENIN Administration
Olanzapine 15 mg 04/08/24 22:00 04/12/24 20:41
Olanzapine 10 Mg Tablet PO 05/06/24 21:59 15 mg
HS LENIN Administration
Pantoprazole Sodium 40 mg 04/03/24 08:00 04/13/24 08:30
Pantoprazole Sodium 40 Mg/10 Ml Vial IV 05/01/24 07:59 40 mg
BID LENIN Administration
Sodium Chloride 0 flush 04/02/24 19:00 04/11/24 21:00
Sodium Chloride 0.9% (Flush) Syringe IV 04/30/24 18:59 2 flush
PER PROTOCOL LENIN Administration
Sodium Chloride 10 ml 04/03/24 08:00 04/13/24 08:30
Sodium Chloride 0.9% (Preservative Free) 10 Ml Vial IV 05/01/24 07:59 10 ml
BID LENIN Administration
Sodium Chloride 0.25 ml 04/09/24 10:47
Nss (Pf) 10 Ml Vial For Ativan 0.5 Mg Dose IV 05/03/24 15:05
[id number] PRN
IV LORAZEPAM DILUTION
Tamsulosin HCl 0.8 mg 04/12/24 08:00 04/13/24 08:29
Tamsulosin 0.4 Mg Capsule PO 05/10/24 07:59 0.8 mg
DAILY LENIN Administration
Thiamine HCl 100 mg 04/13/24 08:00 04/13/24 08:29
Thiamine 100 Mg Tablet PO 05/11/24 07:59 100 mg
BID LENIN Administration
Trimethobenzamide HCl 200 mg 04/04/24 18:34 04/09/24 01:32
Trimethobenzamide 200 Mg/2 Ml Vial IM 05/02/24 18:33 200 mg
Q6HPRN PRN Administration
nausea
Review of Systems
-
History Source: Patient, Coordinated Provider and Records
Constitutional: Reports No Symptoms
EENT: Reports No Symptoms
Respiratory: Reports No Symptoms
Cardiac: Reports No Symptoms
GI: Reports No Symptoms
Breast: Reports N/A
: Reports No Symptoms
Musculoskeletal: Reports No Symptoms
Skin: Reports No Symptoms
Neuro: Reports No Symptoms
Endocrine: Reports No Symptoms
Hematologic/Lymphatic: Reports No Symptoms
Allergy / Immunology: Reports No Symptoms
Psych: Reports No Symptoms
Physical Exam
-
Patient is in bed with WOCN at bedside assisting with ostomy appliance. Patient denies acute pain. He understands we are awaiting pathology of mass.
General: Well Developed, Well Nourished, No Apparent Distress and Conversant
HEENT: Negative Jaundice
Cardiology: S1 and S2
Pulmonary: Other (room air, diminished)
GI: Other (hypoactive, ostomy with green soft/liquid output, midline incision CDI with phil)
Genito-Urinary: Thakur
Musculoskeletal: Edema, Right Lower Extrem and Edema, Left Lower Extrem
Extremities: Pulses Present
Neurology: Non Focal
Skin: Warm and Dry
Psych: Calm and Other (flat)
Labs
Lab Results
WBC 12.0 10^3/uL (4.8-10.8) H 04/13/24 05:24
RBC 3.90 10^6/uL (4.70-6.10) L 04/13/24 05:24
Hgb 9.0 g/dL (13.0-18.0) L 04/13/24 05:24
Hct 29.4 % (39.0-52.0) L 04/13/24 05:24
MCV 75.4 fL (80.0-94.0) L 04/13/24 05:24
MCH 23.1 pg (27.0-31.0) L 04/13/24 05:24
MCHC 30.6 g/dL (33.0-37.0) L 04/13/24 05:24
RDW 25.7 % (11.5-14.5) H 04/13/24 05:24
Plt Count 409 10^3/uL (130-400) H 04/13/24 05:24
MPV 9.1 fL (7.4-10.4) 04/13/24 05:24
Abs Immat Gran (auto) 0.3 10^3/uL (0-0.05) H 04/13/24 05:24
Absolute Neuts (auto) 8.3 10^3/uL (1.4-6.5) H 04/13/24 05:24
Absolute Lymphs (auto) 1.8 10^3/uL (1.2-3.4) 04/13/24 05:24
Absolute Monos (auto) 0.7 10^3/uL (0.1-0.6) H 04/13/24 05:24
Absolute Eos (auto) 0.8 10^3/uL (0-0.7) H 04/13/24 05:24
Absolute Basos (auto) 0.1 10^3/uL (0-0.2) 04/13/24 05:24
Immature Gran % 2.3 % (0-0.5) H 04/13/24 05:24
Neutrophils % 69.6 % (42.2-75.2) 04/13/24 05:24
Lymphocytes % 15.2 % (20.5-51.1) L 04/13/24 05:24
Monocytes % 5.9 % (1.7-9.3) 04/13/24 05:24
Eosinophils % 6.4 % (0-6) H 04/13/24 05:24
Basophils % 0.6 % (0-2) 04/13/24 05:24
Creatinine 1.1 mg/dL (0.7-1.3) 04/13/24 05:24
Vital Signs
Vital Signs
Temp Pulse Resp BP Pulse Ox
97.7 F 67 12 138/72 99
04/13/24 07:05 04/13/24 08:30 04/13/24 07:05 04/13/24 08:30 04/13/24 07:05
04/09/24 CT c/a/p: Findings in the chest again seen compatible with emphysematous changes, reticular interstitial thickening and some central traction bronchiectasis at least in part correlating with known history of Sarcoidosis and chronic lung
disease.Slightly increased small left pleural effusion with accompanying small left lower lobe consolidation compatible with atelectasis and/or pneumonia.Tiny right pleural effusion with accompanying mild subsegmental atelectasis.Moderate to large
volume ascites in the abdomen and large volume ascites in the true pelvis, increased in comparison to prior CT. Diverting left lower quadrant transverse colostomy performed in the interval since prior CT. Numerous loops of large mildly prominent and
small bowel with fluid and air-fluid levels and at least relative wall thickening which could represent enteritis. Unfortunately, without oral contrast, evaluation for discrete abnormal focal fluid collection is markedly limited and cannot be
excluded. Similar to prior study is a presumed thickened mass/malignancy with central aeration involving the descending colon situated anterior to the left kidney, somewhat similar to recent prior study.Small volume free air is seen presumably the
sequela of recent surgery. Recent perforation cannot be excluded.
[2024-04-13 11:05] VITALS: BP 127/69
--- NOTE | 2024-04-13 11:19 | W.PN.CRS1 ---
Today's Communication / Plan
-
continue diet
recommend urology consult
Assessment/Plan
-
64-year-old male with PMH of bipolar, insomnia, sarcoidosis, HLD, GERD who presents with a couple weeks of weakness, dizziness and falls at home.
CT showing a colonic obstruction at the descending colon with a mass concerning for cancer and appears to be invading the left kidney and tail of the pancreas, significant distention with the proximal colon and small bowel, cecum measuring between 9
to 10 cm. Concern for invasion into the kidney and distal pancreas, will likely need to confirm with MRI when more stabilized.
POD #9 exlap, diverting loop transverse colostomy; kept intubated POD 0 as precaution for recent possible aspiration, extubated POD 1. Transferred out of ICU POD#2
NGT out 04/07, tolerating clears. Passing large amounts of liquid stool/flatus via stoma. S/p paracentesis on 04/10, s/p flex sig on 04/12 by GI
WBC pending, vitals normal
- IDDSI soft bite-size, thin liquids from our perspective when completed.
- Will hold off on TPN at this time
� Appreciate GI; flex sig path pending.
� CEA 102, will need eventual MRI given concern for invasion into kidney/pancreas
� Continue Heparin sq for DVT PPX
� Pain control with Tylenol 1gm, Tramadol 50mg & Dilaudid 1.0mg PRN
� ABX as per primary team
- Continue stoma roxann for now.
- Neville placed back (second time) due to retention. Recommend urology consult.
Subjective Data
Procedure
04/04/2024- Exploratory laparotomy, takedown of splenic flexure, loop transverse colostomy, partial omentectomy, TAP block
Subjective Data
Date of Service: April 13, 2024
Patient states he feels well. He has no complaints. His pain is well-controlled.
Objective Data
-
Vital Signs
Temp Pulse Resp BP Pulse Ox
97.7 F 67 12 138/72 99
04/13/24 07:05 04/13/24 08:30 04/13/24 07:05 04/13/24 08:30 04/13/24 07:05
Intake & Output
04/12/24 04/13/24 04/14/24
06:59 06:59 06:59
Intake Total 605 / 605 1080 / 1080
Output Total 1974 / 1974 2600 / 2600 150 / 150
Balance -1370 / -1370 -1520 / -1520 -150 / -150
Intake:
Oral fluids 1080 / 1080
IV piggybacks 605 / 605
Output:
Liquid stool amount 525 / 525 450 / 450 150 / 150
Colostomy 525 / 525 450 / 450 150 / 150
Urine, Neville 1450 / 1450 2150 / 2150
Lab Results
04/13/24 05:24
04/13/24 05:24
Physical Exam
-
General: No Acute Distress and AOx3
Abdomen: Soft, Non Distended, Non Tender and Other (stoma pink and with function)
Skin: Warm and Dry
--- NOTE | 2024-04-13 11:45 | WOUNDNOTE ---
WOC RN note: Patient's stoma pink and swollen. Stoma bridge intact. Slight red rash noted peristomal skin with minimal leakage. Instructed patient use of a light dusting of miconazole powder followed by no sting barrier wipe to treat rash with each
wafer change. Instructed patient pouch emptying and changing appliance using [employer]ell wafer # [id number], Gely seal and Center pouch # [id number]. Ostomy supplies in room. Gave a [facility] 1 piece pouch in case patient wants to try a 1 piece appliance
after his stoma bridge is removed. Stool liquid brown. Sacral skin red and intact. Skin on heels intact. Plan is SNF rehab when discharged.
[2024-04-13] MEDS: KCL ELIXIR 40 MEQ PO (11:50)
[2024-04-13 12:10] LABS: Reticulocyte Count 1.2 % (0.4-2.8)
[2024-04-13 12:30] LABS: LDH 191 U/L (120-246)
--- NOTE | 2024-04-13 15:07 | CM ---
Addendum entered by Deirdre Shafer 04/13/24 15:22:
Additional referrals forwarded.
Original Note:
Discharge Plan of Care: SNF. Referrals forwarded. Follow-up today to preferences: [facility], [facility], [facility] and [facility]. None of the facilities will have a bed this weekend. [facility] and [facility] may have a bed on Tuesday
04/16/24. [employer] list given to patient and family for additional preferences.
[2024-04-13 15:14] VITALS: BP 137/71
[2024-04-13] MEDS: FERRLECIT 110 MG IV (15:19)
[2024-04-13 16:42] LABS: Transferrin 140 mg/dL (200-360)
--- NOTE | 2024-04-13 18:08 | CONS.URO ---
Consultation
-
Performing Provider: Keenanfer
Reason for Consultation: Urinary retention
Medical History
History of Present Illness
64M with no prior urologic history
No LUTS or BPH symptoms at baseline
No prior episodes of urinary retention
Admitted for bowel obstruction/GI bleed and found to have a large invasive appearing colon mass, possible renal or pancreatic invasion
s/p exlap, takedown of splenic flexure, loop colostomy
Post op ileus resolving
During post op course he had urinary retention requiring thakur placement x2
During trial of void patient did not have the urge to urinate
He was started on tamsulosin prior to the second trial of void
Pending rehab admission
Past Medical History
Past Medical History: Other (Sarcoidosis, bipolar disorder)
Past Surgical History: Orthopedic
Social History
Tobacco: Former Smoker
Alcohol: Occasional
Drug: None
Family History
Family History: Reviewed & Not Pertinent
Allergies/Home Medications
Allergies
Allergy/AdvReac Type Severity Reaction Status Date / Time
No Known Allergies Allergy Verified 04/02/24 10:26
Home Medications
�Medication �Instructions �Recorded �Confirmed �Type
calcium carbonate (Tums) 200 mg PO QIDPRN PRN gerd 04/02/24 04/02/24 History
gabapentin 300 mg capsule 300 mg PO HS Pain 04/02/24 04/02/24 History
magnesium hydroxide 400 mg/5 mL 2,400 mg PO DAILYPRN PRN 04/02/24 04/02/24 History
oral suspension (Milk of Magnesia) constipation/gerd
naproxen sodium 220 mg tablet 220 mg PO BIDPRN PRN mild pain 04/02/24 04/02/24 History
(Aleve)
olanzapine 15 mg tablet 15 mg PO HS Mental Health/Anxiety 04/02/24 04/02/24 History
zolpidem 10 mg tablet (Ambien) 10 mg PO HS Sleep 04/02/24 04/02/24 History
Physical Exam
Vital Signs
Vital Signs
Temp Pulse Resp BP Pulse Ox
97.6 F 69 16 137/71 97
04/13/24 15:14 04/13/24 15:14 04/13/24 15:14 04/13/24 15:14 04/13/24 15:14
Lab / Testing Results
Laboratory Results
04/13/24 05:24
04/13/24 05:24
Physical Exam
General: Well Developed, Well Nourished and No Apparent Distress
Respiratory: Non Labored Respirations
Neuro: AO x 3
Psych: Calm and Intact Judgement
Assessment / Plan
-
64M with post op urinary retention
failed trial of void 04/10 despite tamsulosin
- Suspect urinary retention related to surgical recovery, pain medications, anesthesia, diminished functional status, and will likely return to baseline with further recovery
- Maintain thakur at discharge
- Okay to continue tamsulosin 0.4mg daily at discharge which may help next trial of void
- Added instructions for trial of void to discharge which can hopefully be done at rehab in about 10 days
- Outpatient follow up
Discussed possible renal involement of tumor with Dr. Bermudez - to discuss further once his staging and biopsy are more clear
Data Reviewed
-
CT Scan: Image personally visualized and interpreted
Lab Data: Labs Reviewed
[2024-04-13] MEDS: ZYPREXA 15 MG PO (20:02)
[2024-04-13] MEDS: NEURONTIN 300 MG PO (20:03)
[2024-04-13 23:23] VITALS: BP 146/74
[2024-04-14] MEDS: HEPARIN 5000 UNITS SC ×4 (00:21→23:52)
[2024-04-14 06:00] VITALS: BMI 23.8
[2024-04-14 06:50] LABS: % Basophils 0.6 % (0-2); % Eosinophils 5.1 % (0-6); % Immature Granulocytes 2.2 % (0-0.5); % Lymphocytes 17.5 % (20.5-51.1); % Monocytes 5.6 % (1.7-9.3); Absolute Basophils 0.1 10^3/uL (0-0.2); Absolute Eosinophils 0.5 10^3/uL (0-0.7); Absolute Immature Granulocytes 0.2 10^3/uL (0-0.05); Absolute Lymphocytes 1.8 10^3/uL (1.2-3.4); Absolute Monocytes 0.6 10^3/uL (0.1-0.6); Hematocrit 27.5 % (39.0-52.0); Hemoglobin 8.4 g/dL (13.0-18.0); Mean Corp Hgb Conc. 30.5 g/dL (33.0-37.0); Mean Corpuscular Hgb 22.8 pg (27.0-31.0); Mean Corpuscular Volume 74.7 fL (80.0-94.0); Mean Platelet Volume 8.9 fL (7.4-10.4); Nucleated Red Blood Cells % 0 % (-); Platelet Count 383 10^3/uL (130-400); Red Blood Cell Count 3.68 10^6/uL (4.70-6.10); Red Cell Dist. Width 25.9 % (11.5-14.5); White Blood Cell Count 10.2 10^3/uL (4.8-10.8)
[2024-04-14 07:05] VITALS: BP 133/76
[2024-04-14 07:14] LABS: ALT (SGPT) < 10 U/L (0-50); AST (SGOT) 16 U/L (17-59); Albumin 1.9 g/dl (3.5-5.0); Alkaline Phosphatase 69 U/L (38-126); Blood Urea Nitrogen 7 mg/dl (9-20); Calcium 7.5 mg/dl (8.4-10.2); Carbon Dioxide 19 mmol/L (22-30); Chloride 117 mmol/L (98-107); Estimated Creatinine Clearance 67 ml/min; Glucose 78 mg/dl (70-99); Potassium 3.3 mmol/L (3.5-5.1); Sodium 139 mmol/L (135-145); Total Bilirubin 0.3 mg/dl (0.2-1.3); Total Protein 4.2 g/dl (6.3-8.2); eGFR > 60.00
--- NOTE | 2024-04-14 08:21 | W.PN.GS2 ---
Addendum entered and electronically signed by Torres Scales MD 04/14/24 08:38:
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 Agree with assessment plan as documented below.
No major changes from surgical perspective. Tolerating a diet with a functioning ostomy. Abdomen benign. Dispo planning.
Original Note:
Today's Communication / Plan
-
Continue diet
Dispo planning
Assessment / Plan
-
64-year-old male with PMH of bipolar, insomnia, sarcoidosis, HLD, GERD who presents with a couple weeks of weakness, dizziness and falls at home.
CT showing a colonic obstruction at the descending colon with a mass concerning for cancer and appears to be invading the left kidney and tail of the pancreas, significant distention with the proximal colon and small bowel, cecum measuring between 9
to 10 cm. Concern for invasion into the kidney and distal pancreas, will likely need to confirm with MRI when more stabilized.
POD #10 exlap, diverting loop transverse colostomy
S/p paracentesis on 04/10, s/p flex sig on 04/12 by GI
Tolerating diet
Ostomy productive of stool/flatus
AFVSS
WBC now normalized
- Continue current diet: IDDSI soft bite-size, thin liquids
- Oncologic work up underway, med onc following
� Continue Heparin sq for DVT PPX
� Pain control with Tylenol & Tramadol
- Continue stoma roxann for now. Wound care following for stoma teaching/care
- Neville placed back (second time) due to retention. Urology following
Subjective Data
-
Date of Service: April 14, 2024
Patient seen and examined at bedside with Dr. Scales. Denies n/v. Tolerating diet. Denies pain.
Objective Data
-
Intake and Output
04/13/24 04/14/24 04/15/24
06:59 06:59 06:59
Intake Total 1080 / 1080 1297 / 1297
Output Total 2600 / 2600 2350 / 2350
Balance -1520 / -1520 -1053 / -1053
Intake:
Oral fluids 1079 / 1079 1296 / 129
Output:
Liquid stool amount 450 / 450 375 / 375
Colostomy 450 / 450 375 / 375
Urine, Neville 2149 / 2149
Vital Signs
Temp Pulse Resp BP Pulse Ox
97.5 F 74 16 133/76 98
04/14/24 07:05 04/14/24 07:05 04/14/24 07:05 04/14/24 07:05 04/14/24 07:05
Lab Results
04/14/24 05:42
04/14/24 05:42
Calcium 7.5 mg/dl (8.4-10.2) L 04/14/24 05:42
Phosphorus 3.4 mg/dl (2.5-4.5) 04/04/24 19:10
Magnesium 1.9 mg/dl (1.6-2.3) 04/11/24 07:05
Total Bilirubin 0.3 mg/dl (0.2-1.3) 04/14/24 05:42
AST 16 U/L (17-59) L 04/14/24 05:42
ALT < 10 U/L (0-50) 04/14/24 05:42
Alkaline Phosphatase 69 U/L (38-126) 04/14/24 05:42
Total Protein 4.2 g/dl (6.3-8.2) L 04/14/24 05:42
Albumin 1.9 g/dl (3.5-5.0) L 04/14/24 05:42
Physical Exam
-
NAD
ABD soft, NT, ND. Stoma pink/viable and productive of green stool/flatus, stoma roxann in place
Midline incision with intact phil
--- NOTE | 2024-04-14 08:49 | W.PN.ONC ---
Today's Communication / Plan
-
I discussed w/ patient the biopsy results, c/w colon adenocarcinoma
Rec. MRI to evaluate extent of local involvement, though he's unable to tolerate MRI due to claustrophobia
With recent delirium, now improved, will hold off on sedation for MRI
Would likely recommend neoadjuvant FOLFOX, then surgical resection
Will need port for chemo
Will discuss w/ Dr Bermudez after the weekend
Continue IV iron
Will follow along
Impression
Impression
locally advanced/obstructing descending colon adenocarcinoma, grade 2, pMMR, with suspected invasion of pancreas tail and left kidney
severe iron def anemia
Biopolar d/o
Urinary retention requiring thakur catheter
Plan
Plan
I discussed w/ patient the biopsy results, c/w colon adenocarcinoma
Rec. MRI to evaluate extent of local involvement, though he's unable to tolerate MRI due to claustrophobia
With recent delirium, now improved, will hold off on sedation for MRI
t/c outpatient PET
Would likely recommend neoadjuvant FOLFOX, then surgical resection
Will need port for chemo
Will discuss w/ Dr Bermudez after the weekend
Continue IV iron
Will follow along
Subjective/Objective
Subjective/Objective
no complaints, tolerating diet, pain well controlled
Vital Signs:
Vital Signs
Temp Pulse Resp BP Pulse Ox
97.5 F 74 16 133/76 98
04/14/24 07:05 04/14/24 07:05 04/14/24 07:05 04/14/24 07:05 04/14/24 07:05
Lab Results:
Laboratory Data
WBC 10.2 10^3/uL (4.8-10.8) 04/14/24 05:42
Hgb 8.4 g/dL (13.0-18.0) L 04/14/24 05:42
Plt Count 383 10^3/uL (130-400) 04/14/24 05:42
PT 17.8 Sec (11.4-14.6) H 04/05/24 03:53
INR 1.45 04/05/24 03:53
APTT 30.8 Sec (23.4-35.0) 04/04/24 19:10
eGFR > 60.00 04/14/24 05:42
[2024-04-14] MEDS: VITAMIN B1 100 MG PO ×2 (09:25→20:27)
[2024-04-14] MEDS: FLOMAX 0.400000000000000022 MG PO (09:25)
[2024-04-14] MEDS: MYCOSTATIN ORAL SUSPENSION 5 ML PO ×4 (09:26→21:39)
[2024-04-14] MEDS: LOPRESSOR 25 MG PO ×2 (09:27→20:27)
[2024-04-14] MEDS: PROTONIX IV 40 MG IV (09:28)
[2024-04-14] MEDS: NSS (PRESERVATIVE FREE) 10 ML IV (09:29)
[2024-04-14] MEDS: FLUSH (NSS) 2 FLUSH IV ×2 (09:29→14:31)
--- NOTE | 2024-04-14 14:28 | W.PN.HOSP.TC ---
Today's Communication/Plan
-
Supportive care.
For Chemo-Port placement on Monday 04/16.
Continue Neville.
Pending placement to rehab with medical ability.
Assessment / Plan
Assessment / Plan
Impression:
Bowel obstruction
Gastrointestinal hemorrhage
� Status post exploratory laparotomy, takedown of splenic flexure, loop transverse colostomy.
Intraoperative pathology negative for malignancy. CEA 102.
Postoperative ileus.
Trush
Acute blood loss anemia
Chronic microcytic anemia
Delirium.
Concern for aspiration
Minimal pelvic ascites
Acute urinary retention
CANELO, resolved.
Hypokalemia
Conditions prior to admission:
Sarcoidosis
Essential hypertension
GERD
Peripheral neuropathy
Bipolar disorder
Insomnia
Former smoker
Plan:
Status post exploratory laparotomy with colostomy.
CT scan findings reviewed showing left-sided colonic mass possibly involving pancreas and adjacent to the left kidney
Intraoperative pathology with inflammatory changes negative for malignancy. Tumor markers not elevated
Improving. Diet has been advanced to solids on 04/11.
Follow electrolytes
Wean off IV fluids as tolerates diet.
Wean off TPN
Sigmoidoscopy 04/12 with malignant and obstructive tumor.
Pathology consistent with adenocarcinoma
Oncology input appreciated
Likely for Chemo-Port placement on Monday 04/16
Thrush, initiated on nystatin 04/11
Patient will need additional workup with imaging including MRI and CT scan for staging.
Follow-up sigmoidoscopy with biopsy.
Has minimal pelvic ascites not amenable for paracentesis
GI bleed
Acute anemia
Hemoglobin stabilized status post 4 units peak RBC transfused.
Delirium.
Mental status improved and close to baseline.
Monitor closely.
Reinstate preadmission regimen for bipolar disorder including olanzapine
Reinstate gabapentin.
Monitor his volume status closely.
Concern for aspiration.
Noted with elevated white count.
CT scan of the chest abdomen and pelvis 04/09 with chronic interstitial changes minimal pleural effusion.
Reinstated antibiotics vancomycin/Zosyn covering aspiration
Now with trending down white count.
Clinically less likely aspirating.
Monitor on antibiotics for another 24 to 48 hours.
Bedside speech and swallow evaluation, if concern with low ask for VSE.
Acute urine retention
Status post Neville catheter placed.
Voiding trial on 04/10 with recurrent retention
Neville catheter replaced on 04/11.
Anticipated Discharge: 24 - 48 hours
Subjective/Interval History
-
Date of Service: April 14, 2024
Objective Data
-
Labs:
Laboratory Results
04/14/24
05:42
WBC 10.2
Hgb 8.4 L
Hct 27.5 L
Plt Count 383
Sodium 139
Potassium 3.3 L
Chloride 117 H
Carbon Dioxide 19 L
BUN 7 L
Creatinine 1.0
Glucose 78
Calcium 7.5 L
Total Bilirubin 0.3
AST 16 L
ALT < 10
Alkaline Phosphatase 69
Vital Signs:
Vital Signs
Temp Pulse Resp BP Pulse Ox
97.5 F 74 16 133/76 98
04/14/24 07:05 04/14/24 07:05 04/14/24 07:05 04/14/24 07:05 04/14/24 08:00
I&O
04/13/24 04/14/24 04/15/24
06:59 06:59 06:59
Intake Total 1080 / 1080 1297 / 1297
Output Total 2600 / 2600 2350 / 2350
Balance -1520 / -1520 -1053 / -1053
Physical Exam
-
General: Well Developed and No Apparent Distress
HEENT: Normocephalic, Atraumatic and Moist Mucous Membranes
Respiratory: Clear to Auscultation
Cardiac: Regular Rhythm and S1/S2; Negative Murmur, Rub or Gallop
GI: Soft, Nontender, Nondistended, Normal Bowel Sounds and Ostomy; Negative Organomegaly
Rectal: Deferred by Provider
Genito-urinary: Neville
Musculoskeletal: No Clubbing, No Cyanosis and No Edema
Skin: Negative Rash
Neuro: Nonfocal/Grossly Intact
[2024-04-14] MEDS: FERRLECIT 110 MG IV (14:31)
[2024-04-14 15:20] VITALS: BP 117/63
[2024-04-14 18:22] LABS: Haptoglobin 300 mg/dL (30-200)
[2024-04-14] MEDS: NEURONTIN 300 MG PO (21:39)
[2024-04-14] MEDS: ZYPREXA 15 MG PO (21:39)
[2024-04-14 23:00] VITALS: BP 115/63
[2024-04-15 06:00] VITALS: BMI 23.8
[2024-04-15 07:05] VITALS: BP 131/74
[2024-04-15] MEDS: VITAMIN B1 100 MG PO ×2 (08:59→20:43)
[2024-04-15] MEDS: HEPARIN 5000 UNITS SC ×3 (08:59→23:42)
[2024-04-15] MEDS: MYCOSTATIN ORAL SUSPENSION 5 ML PO ×3 (08:59→17:46)
[2024-04-15] MEDS: PROTONIX 40 MG PO (08:59)
[2024-04-15] MEDS: FLOMAX 0.400000000000000022 MG PO (08:59)
[2024-04-15] MEDS: LOPRESSOR 25 MG PO ×2 (09:00→20:44)
--- NOTE | 2024-04-15 09:32 | W.PN.HOSP.TC ---
Today's Communication/Plan
-
replete labs
spoke with
PT/OT
may not want port placed tomorrow--looking at [facility] to place.....
Assessment / Plan
Assessment / Plan
Impression:
Bowel obstruction
Gastrointestinal hemorrhage
� Status post exploratory laparotomy, takedown of splenic flexure, loop transverse colostomy.
Intraoperative pathology negative for malignancy. CEA 102--04/12 mass--path POSITIVE for invasive adenocarcinoma; 04/05 omentum path NEGATIVE for malignancy
Postoperative ileus.
Thrush
Acute blood loss anemia
Chronic microcytic anemia
Delirium.
Concern for aspiration
Minimal pelvic ascites
Acute urinary retention
CANELO, resolved.
Hypokalemia--replete K as needed--check mag
Conditions prior to admission:
Sarcoidosis
Essential hypertension
GERD
Peripheral neuropathy
Bipolar disorder
Insomnia
Former smoker
Plan:
Status post exploratory laparotomy with colostomy.
CT scan findings reviewed showing left-sided colonic mass possibly involving pancreas and adjacent to the left kidney
Intraoperative pathology with inflammatory changes negative for malignancy. Tumor markers not elevated, correction, CEA ELEVATED at 102---04/12 mass--path POSITIVE for invasive adenocarcinoma; 04/05 omentum path NEGATIVE for malignancy
Improving. Diet has been advanced to solids on 04/11.
Follow electrolytes
Wean off IV fluids as tolerates diet.
Wean off TPN
Sigmoidoscopy 04/12 with malignant and obstructive tumor.
Pathology consistent with adenocarcinoma
Oncology input appreciated-- Dr. Tinsley spoke with on Tuesday04/15/24, she wants him to get cancer care at [facility]--unsure if wants PORT placed here or wait until seen at [facility]
Likely for Chemo-Port placement on Monday 04/16
Thrush, initiated on nystatin 04/11
Patient will need additional workup with imaging including MRI and CT scan for staging.
Follow-up sigmoidoscopy with biopsy.
Has minimal pelvic ascites not amenable for paracentesis
GI bleed
Acute anemia
Hemoglobin stabilized status post 4 units peak RBC transfused.
Delirium.
Mental status improved and close to baseline --nursing reports that wants daily phone calls--looking for d/c plan and also wants to speak with Case Management
Monitor closely.
Reinstate preadmission regimen for bipolar disorder including olanzapine
Reinstate gabapentin.
Monitor his volume status closely.
Concern for aspiration.
Noted with elevated white count.
CT scan of the chest abdomen and pelvis 04/09 with chronic interstitial changes minimal pleural effusion.
Reinstated antibiotics vancomycin/Zosyn covering aspiration
Now with trending down white count.
Clinically less likely aspirating.
Monitor on antibiotics for another 24 to 48 hours.
Bedside speech and swallow evaluation, if concern with low ask for VSE.
Acute urine retention
Status post Neville catheter placed.
Voiding trial on 04/10 with recurrent retention
Neville catheter replaced on 04/11--keeping at d/c --apprec urology--TOV in 1 week or so after d/c
Anticipated Discharge: 24 - 48 hours
Subjective/Interval History
-
Date of Service: April 15, 2024
pt without c/o
Objective Data
-
Vital Signs:
max temp for 24 hours
04/14/24
15:20
Temp 98.2 F
Vital Signs
Temp Pulse Resp BP Pulse Ox
97.6 F 80 16 131/74 96
04/15/24 07:05 04/15/24 07:05 04/15/24 07:05 04/15/24 07:05 04/15/24 07:05
I&O
04/14/24 04/15/24 04/16/24
06:59 06:59 06:59
Intake Total 1297 / 1297 750 / 750
Output Total 2350 / 2350 2625 / 2625
Balance -1053 / -1053 -1875 / -1874
Review of Systems
-
All other systems: Reviewed and negative
Physical Exam
-
General: Well Developed and Appears Chronically Ill
HEENT: Normocephalic and Atraumatic
Respiratory: Clear to Auscultation; Negative Wheezes or Rhonchi
Cardiac: Regular Rhythm and S1/S2; Negative Murmur
GI: Soft, Nontender, Nondistended, Normal Bowel Sounds, Ostomy (with liquid stool) and Other (phil in place from abdominal surgery)
Genito-urinary: Neville
Musculoskeletal: No Clubbing, No Cyanosis and No Edema
Neuro: Awake and Alert
[2024-04-15] MEDS: KCL 40 MEQ PO (10:56)
[2024-04-15] MEDS: FERRLECIT 110 MG IV (14:13)
[2024-04-15] MEDS: FLUSH (NSS) 2 FLUSH IV (14:14)
[2024-04-15 15:05] VITALS: BP 131/73
[2024-04-15] MEDS: MYCOSTATIN ORAL SUSPENSION PO ×2 (20:44→20:49)
[2024-04-15] MEDS: ZYPREXA 15 MG PO (21:53)
[2024-04-15] MEDS: NEURONTIN 300 MG PO (21:55)
[2024-04-15 23:22] VITALS: BP 144/69
[2024-04-16 06:00] VITALS: BMI 22.4
[2024-04-16 06:13] LABS: Hematocrit 27.2 % (39.0-52.0); Hemoglobin 8.6 g/dL (13.0-18.0); Mean Corp Hgb Conc. 31.6 g/dL (33.0-37.0); Mean Corpuscular Hgb 23.4 pg (27.0-31.0); Mean Corpuscular Volume 73.9 fL (80.0-94.0); Mean Platelet Volume 8.7 fL (7.4-10.4); Platelet Count 468 10^3/uL (130-400); Red Blood Cell Count 3.68 10^6/uL (4.70-6.10); Red Cell Dist. Width 26.6 % (11.5-14.5); White Blood Cell Count 11.5 10^3/uL (4.8-10.8)
[2024-04-16 06:47] LABS: ALT (SGPT) < 10 U/L (0-50); AST (SGOT) 20 U/L (17-59); Albumin 2.2 g/dl (3.5-5.0); Alkaline Phosphatase 84 U/L (38-126); Blood Urea Nitrogen 7 mg/dl (9-20); Calcium 8.2 mg/dl (8.4-10.2); Carbon Dioxide 19 mmol/L (22-30); Chloride 114 mmol/L (98-107); Estimated Creatinine Clearance 67 ml/min; Glucose 78 mg/dl (70-99); Magnesium 1.8 mg/dl (1.6-2.3); Potassium 3.6 mmol/L (3.5-5.1); Sodium 137 mmol/L (135-145); Total Bilirubin 0.3 mg/dl (0.2-1.3); Total Protein 4.5 g/dl (6.3-8.2); eGFR > 60.00
[2024-04-16 07:05] VITALS: BP 138/78
[2024-04-16] MEDS: DESENEX/MITRAZOL/ZEASORB 1 APPLIC TOPICAL (09:31)
[2024-04-16] MEDS: LOPRESSOR 25 MG PO ×2 (09:32→20:09)
[2024-04-16] MEDS: PROTONIX 40 MG PO (09:32)
[2024-04-16] MEDS: FLOMAX 0.400000000000000022 MG PO (09:32)
[2024-04-16] MEDS: VITAMIN B1 100 MG PO ×2 (09:32→20:10)
[2024-04-16] MEDS: MYCOSTATIN ORAL SUSPENSION 5 ML PO ×3 (09:32→17:16)
[2024-04-16] MEDS: HEPARIN 5000 UNITS SC ×3 (09:32→23:56)
[2024-04-16] MEDS: FERRLECIT 110 MG IV (13:03)
[2024-04-16 15:05] VITALS: BP 121/64
--- NOTE | 2024-04-16 15:20 | CM ---
Discharge Plan of Care: SNF for STR per therapy recommendation VS. [facility] for management of newly diagnosed cancer. ? if Port for chemo will be placed at or [facility].
--- NOTE | 2024-04-16 16:54 | W.PN.HOSP.TC ---
Today's Communication/Plan
-
Discharge planing
Assessment / Plan
Assessment / Plan
Impression:
Bowel obstruction
Gastrointestinal hemorrhage
� Status post exploratory laparotomy, takedown of splenic flexure, loop transverse colostomy.
Intraoperative pathology negative for malignancy. CEA 102--04/12 mass--path POSITIVE for invasive adenocarcinoma; 04/05 omentum path NEGATIVE for malignancy
Postoperative ileus.
Thrush
Acute blood loss anemia
Chronic microcytic anemia
Delirium.
Concern for aspiration
Minimal pelvic ascites
Acute urinary retention
CANELO, resolved.
Hypokalemia--
Conditions prior to admission:
Sarcoidosis
Essential hypertension
GERD
Peripheral neuropathy
Bipolar disorder
Insomnia
Former smoker
Plan:
Status post exploratory laparotomy with colostomy.
CT scan findings reviewed showing left-sided colonic mass possibly involving pancreas and adjacent to the left kidney
Intraoperative pathology with inflammatory changes negative for malignancy.
Improving. Diet has been advanced to solids on 04/11.
Follow electrolytes
Wean off IV fluids as tolerates diet.
Wean off TPN
Sigmoidoscopy 04/12 with malignant and obstructive tumor.
Pathology consistent with adenocarcinoma
Oncology input appreciated--
Likely for Chemo-Port placement on Monday 04/16
Thrush, initiated on nystatin 04/11
Patient will need additional workup with imaging including MRI and CT scan for staging.
Follow-up sigmoidoscopy with biopsy.
Has minimal pelvic ascites not amenable for paracentesis
GI bleed
Acute anemia
Hemoglobin stabilized status post 4 units peak RBC transfused.
Delirium.
Mental status improved and close to baseline
Monitor closely.
Reinstate preadmission regimen for bipolar disorder including olanzapine
Reinstate gabapentin.
Monitor his volume status closely.
Concern for aspiration while he was altered mental status.
Mental status improved and back to baseline.
CT scan of the chest abdomen and pelvis 04/09 with chronic interstitial changes minimal pleural effusion.
Antibiotics had been discontinued
Clinically less likely aspirating.
Diet has been advanced as per speech and swallow recommendation to regular consistency.
Acute urine retention
Status post Neville catheter placed.
Voiding trial on 04/10 with recurrent retention
Neville catheter replaced on 04/11--keeping at d/c --apprec urology--TOV in 1 week or so after d/c
Anticipated Discharge: Within 24 hours
Subjective/Interval History
-
Date of Service: April 16, 2024
Objective Data
-
Labs:
Laboratory Results
04/16/24
05:11
WBC 11.5 H
Hgb 8.6 L
Hct 27.2 L
Plt Count 468 H D
Sodium 137
Potassium 3.6
Chloride 114 H
Carbon Dioxide 19 L
BUN 7 L
Creatinine 1.0
Glucose 78
Calcium 8.2 L
Total Bilirubin 0.3
AST 20
ALT < 10
Alkaline Phosphatase 84
Vital Signs:
Vital Signs
Temp Pulse Resp BP Pulse Ox
98.2 F 68 16 121/64 97
04/16/24 15:05 04/16/24 15:05 04/16/24 15:05 04/16/24 15:05 04/16/24 15:05
I&O
04/15/24 04/16/24 04/17/24
06:59 06:59 06:59
Intake Total 750 / 750 720 / 720 480 / 480
Output Total 2625 / 2625 3125 / 3125 800 / 800
Balance -1875 / -1875 -2405 / -2405 -320 / -320
Physical Exam
-
General: Well Developed and No Apparent Distress
HEENT: Normocephalic, Atraumatic and Moist Mucous Membranes
Respiratory: Clear to Auscultation
Cardiac: Regular Rhythm and S1/S2; Negative Murmur, Rub or Gallop
GI: Soft, Nontender, Nondistended, Normal Bowel Sounds and Ostomy; Negative Organomegaly
Rectal: Deferred by Provider
Musculoskeletal: No Clubbing, No Cyanosis and No Edema
Skin: Negative Rash
Neuro: Nonfocal/Grossly Intact
[2024-04-16] MEDS: NEURONTIN 300 MG PO (21:59)
[2024-04-16] MEDS: MYCOSTATIN ORAL SUSPENSION PO ×2 (21:59→22:04)
[2024-04-16] MEDS: ZYPREXA 15 MG PO (21:59)
[2024-04-16 23:30] VITALS: BP 141/70
[2024-04-17 05:41] VITALS: BMI 22.0
[2024-04-17 07:27] VITALS: BP 119/70
[2024-04-17] MEDS: HEPARIN 5000 UNITS SC ×3 (08:15→23:09)
[2024-04-17] MEDS: MYCOSTATIN ORAL SUSPENSION 5 ML PO (08:15)
[2024-04-17] MEDS: LOPRESSOR 25 MG PO ×2 (08:16→20:50)
[2024-04-17] MEDS: VITAMIN B1 100 MG PO ×2 (08:16→20:50)
[2024-04-17] MEDS: PROTONIX 40 MG PO (08:16)
[2024-04-17] MEDS: FLOMAX 0.400000000000000022 MG PO (08:16)
--- NOTE | 2024-04-17 13:16 | CM ---
Addendum entered by Deirdre Shafer 04/17/24 16:52:
Peer to peer completed and denied. Reason: Patient is walking 300 feet with supervision only. [facility] accepted for VN, PT/OT services. They will train and patient on colostomy and thakur care. Requested nursing staff also educate on
same.
Original Note:
[facility] has accepted patient for STR. Required insurance auth. Information provided to Shaila at . Pending Reference # [id number]. Uma sent to Communications Officer for review. Communications Officer denied admission to SNF. Patient walked 300 feet
with walker and only supervision on
04/16/24. Recommending home PT or outpatient. Offered a peer to peer to [phone] with Reference # [id number]. Peer to peer needs to be done within 24 hours. Physician advisor notified.
[2024-04-17] MEDS: MYCOSTATIN ORAL SUSPENSION PO ×4 (13:50→20:50)
[2024-04-17] MEDS: FERRLECIT 110 MG IV (13:50)
--- NOTE | 2024-04-17 13:59 | WOUNDNOTE ---
[facility] RN Note: Patient and reinstructed colostomy appliance change using Anabell wafer # [id number], Gely seal and Anabell pouch # [id number]. Instructed how to apply light dusting of miconazole powder followed by no sting barrier wipe to peristomal
rash. Patient assisted with appliance change and emptying pouch. VN is planned. DARLEEN Young ordering supplies through [email or web address]. Sacrum blanchable red. Skin on heels intact. +Pedal edema. Heels off bed with pillow. Next appliance change due
Tuesday. Stoma bridge intact. Stoma pink budded 2 inches in size.
[2024-04-17 15:17] VITALS: BP 126/68
--- NOTE | 2024-04-17 16:19 | W.PN.HOSP.TC ---
Today's Communication/Plan
-
Ongoing disposition efforts pending SNF placement.
Assessment / Plan
Assessment / Plan
Impression:
Bowel obstruction
Gastrointestinal hemorrhage
� Status post exploratory laparotomy, takedown of splenic flexure, loop transverse colostomy.
Intraoperative pathology negative for malignancy. CEA 102--04/12 mass--path POSITIVE for invasive adenocarcinoma; 04/05 omentum path NEGATIVE for malignancy
Postoperative ileus.
Thrush
Acute blood loss anemia
Chronic microcytic anemia
Delirium.
Concern for aspiration
Minimal pelvic ascites
Acute urinary retention
CANELO, resolved.
Hypokalemia--
Conditions prior to admission:
Sarcoidosis
Essential hypertension
GERD
Peripheral neuropathy
Bipolar disorder
Insomnia
Former smoker
Plan:
Status post exploratory laparotomy with colostomy.
CT scan findings reviewed showing left-sided colonic mass possibly involving pancreas and adjacent to the left kidney
Intraoperative pathology with inflammatory changes negative for malignancy.
Improving. Diet has been advanced to solids on 04/11.
Follow electrolytes
Wean off IV fluids as tolerates diet.
Wean off TPN
Sigmoidoscopy 04/12 with malignant and obstructive tumor.
Pathology consistent with adenocarcinoma
Oncology input appreciated--
Likely for Chemo-Port placement on Monday 04/16
Thrush, initiated on nystatin 04/11
Patient will need additional workup with imaging including MRI and CT scan for staging.
Follow-up sigmoidoscopy with biopsy.
Has minimal pelvic ascites not amenable for paracentesis
GI bleed
Acute anemia
Hemoglobin stabilized status post 4 units peak RBC transfused.
Delirium.
Mental status improved and close to baseline
Monitor closely.
Reinstate preadmission regimen for bipolar disorder including olanzapine
Reinstate gabapentin.
Monitor his volume status closely.
Concern for aspiration while he was altered mental status.
Mental status improved and back to baseline.
CT scan of the chest abdomen and pelvis 04/09 with chronic interstitial changes minimal pleural effusion.
Antibiotics had been discontinued
Clinically less likely aspirating.
Diet has been advanced as per speech and swallow recommendation to regular consistency.
Acute urine retention
Status post Neville catheter placed.
Voiding trial on 04/10 with recurrent retention
Neville catheter replaced on 04/11--keeping at d/c --apprec urology--TOV in 1 week or so after d/c
Anticipated Discharge: Within 24 hours
Subjective/Interval History
-
Date of Service: April 17, 2024
Objective Data
-
Vital Signs:
Vital Signs
Temp Pulse Resp BP Pulse Ox
98.4 F 72 18 126/68 99
04/17/24 15:17 04/17/24 15:17 04/17/24 15:17 04/17/24 15:17 04/17/24 15:17
I&O
04/16/24 04/17/24 04/18/24
06:59 06:59 06:59
Intake Total 720 / 720 1080 / 1080
Output Total 3125 / 3125 2550 / 2550
Balance -2405 / -2405 -1470 / -1470
Physical Exam
-
General: Well Developed and No Apparent Distress
HEENT: Normocephalic, Atraumatic and Moist Mucous Membranes
Respiratory: Clear to Auscultation
Cardiac: Regular Rhythm and S1/S2; Negative Murmur, Rub or Gallop
GI: Soft, Nontender, Nondistended, Normal Bowel Sounds and Ostomy; Negative Organomegaly
Rectal: Deferred by Provider
Musculoskeletal: No Clubbing, No Cyanosis and No Edema
Skin: Negative Rash
Neuro: Nonfocal/Grossly Intact
[2024-04-17] MEDS: NEURONTIN 300 MG PO (22:34)
[2024-04-17] MEDS: ZYPREXA 15 MG PO (22:34)
[2024-04-17 23:05] VITALS: BP 120/59
[2024-04-18 06:00] VITALS: BMI 23.0
[2024-04-18 07:56] VITALS: BP 126/72
[2024-04-18] MEDS: LOPRESSOR 25 MG PO (08:00)
[2024-04-18] MEDS: VITAMIN B1 100 MG PO (08:00)
[2024-04-18] MEDS: PROTONIX 40 MG PO (08:00)
[2024-04-18] MEDS: FLOMAX 0.400000000000000022 MG PO (08:00)
[2024-04-18] MEDS: MYCOSTATIN ORAL SUSPENSION PO ×2 (08:01→12:06)
[2024-04-18] MEDS: HEPARIN 5000 UNITS SC ×2 (08:01→15:13)
--- NOTE | 2024-04-18 15:28 | W.DS.TRANS ---
DC Summary - [employer]
-
Discharge Instructions:
Discharge Diagnosis/Procedures Colonic adenocarcinoma with bowel obstruction.
Status post exploratory laparotomy, takedown of
splenic flexure, loop transverse colostomy.
Acute urine retention requiring Neville catheter
placement.
Diet Regular
Activity No strenuous activity
Additional Activity Do not lift over 10lbs
Bathing Restrictions OK to Shower
Wound Care Please see your surgeon for staple removal and
follow up 2-3 weeks after surgery
Instructions:
Stand-Alone Forms:
Changes to Home Medications: Yes
Discharge Medications:
DC Medications w/original date entered in [employer]
calcium carbonate (Tums) 200 mg PO QIDPRN PRN gerd 04/02/24
gabapentin 300 mg capsule 300 mg PO HS Pain 04/02/24
olanzapine 15 mg tablet 15 mg PO HS Mental Health/Anxiety 04/02/24
acetaminophen 500 mg tablet (Tylenol Extra Strength) 1,000 mg (2 x 500 mg) PO Q6HPRN PRN mild pain #30 tabs 04/16/24
metoprolol tartrate 25 mg tablet 25 mg PO BID #60 tabs 04/16/24
pantoprazole 40 mg tablet,delayed release 40 mg PO DAILY #30 tabs 04/16/24
tamsulosin 0.4 mg capsule 0.4 mg PO DAILY #30 caps 04/16/24
Home Medication Changes
Metoprolol, Flomax, Protonix initiated
Pending Results: No
[2024-04-18 15:35] VITALS: BP 124/58
--- NOTE | 2024-04-18 16:06 | CM ---
Patient has been medically cleared for discharge to home with [facility] VN and PT/OT services. [employer] will deliver colostomy supplies to patient's home via UPS. Patient has colostomy supplies to use until UPS shipment arrives. will receive
training from RN on thakur and colostomy care prior to discharge. [facility] will call to arrange for initial visit. [facility] will also provide additional training on thakur and colostomy care. Patient has been issued a RW by PT. will
transport home.
[facility]
--- NOTE | 2024-04-18 17:23 | PTCARENOTE ---
Patient D/C home with VN. Iv pulled and belongings from room sent home with patient and his . Went over thakur care and colostomy care with patient and and provided printed material with information. Went over follow up appointments.
== END 2024-04-18 17:15 | disposition home health service (06) | DRG 329 ==
LOC: 2 NORTH 18:47
PROVIDERS: Internal Medicine; Internal Medicine Gastroenterology; Nurse Practitioner Adult Health; Nurse Practitioner Family; Physician Assistant; Student in an Organized Health Care Education/Training Program; ADMITTING PHYSICIAN Family Medicine; ATTENDING PHYSICIAN Internal Medicine; CONSULT PHYSICIAN Internal Medicine Hematology & Oncology; CONSULT PHYSICIAN Surgery; CONSULT PHYSICIAN Urology; EMERGENCY PHYSICIAN Emergency Medicine; FAMILY PHYSICIAN Family Medicine; OTHER PHYSICIAN Internal Medicine; OTHER PHYSICIAN Internal Medicine Gastroenterology
PROC: 0DBU0ZZ Excision of Omentum, Open Approach (ICD-10-PCS; 2024-04-02)
PROC: 30233N1 Transfusion of Nonautologous Red Blood Cells into Peripheral Vein, Percutaneous Approach (ICD-10-PCS; 2024-04-02)
PROC: 0D1L0Z4 Bypass Transverse Colon to Cutaneous, Open Approach (ICD-10-PCS; 2024-04-02)
PROC: 0DBM8ZX Excision of Descending Colon, Via Natural or Artificial Opening Endoscopic, Diagnostic (ICD-10-PCS; 2024-04-12)
DX: C18.2 Malignant neoplasm of ascending colon (principal); J96.01 Acute respiratory failure with hypoxia; B37.0 Candidal stomatitis; D62 Acute posthemorrhagic anemia; N17.9 Acute kidney failure, unspecified; R18.8 Other ascites; K92.2 Gastrointestinal hemorrhage, unspecified; F05 Delirium due to known physiological condition; K91.89 Other postprocedural complications and disorders of digestive system; K56.7 Ileus, unspecified; E44.0 Moderate protein-calorie malnutrition; E83.42 Hypomagnesemia; G47.00 Insomnia, unspecified; G62.9 Polyneuropathy, unspecified; F31.9 Bipolar disorder, unspecified; D86.9 Sarcoidosis, unspecified; I95.1 Orthostatic hypotension; E83.41 Hypermagnesemia; E78.00 Pure hypercholesterolemia, unspecified; K66.0 Peritoneal adhesions (postprocedural) (postinfection); I10 Essential (primary) hypertension; K21.9 Gastro-esophageal reflux disease without esophagitis; R29.6 Repeated falls; E87.6 Hypokalemia; E83.51 Hypocalcemia; R33.8 Other retention of urine; Y84.8 Other medical procedures as the cause of abnormal reaction of the patient, or of later complication, without mention of misadventure at the time of the procedure; Z79.899 Other long term (current) drug therapy; Z87.891 Personal history of nicotine dependence; Z68.23 Body mass index [BMI] 23.0-23.9, adult
CPT/HCPCS: 88305; 88307; 36430; 36600; 70450; 71045; 71260; 74022; 74176; 74177; 76770; 80048; 80053; 80202; 81003; 81015; 82378; 82728; 82805; 82962; 83010; 83540; 83550; 83605; 83615; 83735; 83880; 84100; 84132; 84443; 84466; 84478; 84484; 85014; 85018; 85025; 85027; 85045; 85610; 85730; 86140; 86850; 86900; 86901; 86920; 87040; 87070; 87086; 87641; 88342; 92526; 92610; 93005; 93306; 94002; 94003; 94640; 96374; 97116; 97163; 97530; 99285; J2916; P9016; Q9967